=== PATIENT | female | born 1975 | race Caucasian/White ===

== ENCOUNTER 2023-09-13 09:25 | Emergency (ER) | payer OTHER, SELFPAY ==
[2023-09-13 09:33] VITALS: BP 165/105; PULSE 84; TEMP 36.9; O2SAT 100; BMI 26.6
--- NOTE | 2023-09-13 09:47 | US_ITS ---
The [address] [address] Patient Name: KAYLEE MENDOZA MRN: [id number] date: 1975 Sex: F Assigned Patient Location: ER Current Patient Location: ER Accession/Order Number: [id number] Exam Date: 09/13/2023 10:00 Report Date: 09/13/2023 10:33 At the request of: ANSON RODRIGUEZ Procedure: US right upper quadrant EXAM: US right upper quadrant HISTORY: Pain, epigastric COMPARISON: None. TECHNIQUE: Grayscale, color and Doppler FINDINGS: The liver is normal in size, contour and echotexture 16 cm in length. No focal mass. Hepatopedal flow identified in the main portal vein with velocity of 43 cm/s. The gallbladder is normal in size. The wall measures 1.4 mm, normal. The common bile duct measures 1.6 mm, normal. The right kidney measures 9.6 x 4.1 x 4.7 cm. Identified in the upper pole is a 6.6 mm echogenic focus, nonobstructing nephrolith. The visualized pancreas is normal, the pancreas is poorly seen US/US right upper quadrant IMPRESSION: No acute abnormality Electronically authenticated by: EVANS LEGGETT Date: 09/13/2023 10:33
--- NOTE | 2023-09-13 09:50 | ED.GENADUL1 ---
HPI HPI - General Adult General Chief complaint: Nausea/Vomiting/Diarrhea Stated complaint: ABDOMINAL PAIN/NAUSEA Time Seen by Provider: 09/13/23 09:31 Source: patient Mode of arrival: walk-in History of Present Illness HPI narrative: 48-year-old female presents to the emergency department for intermittent since nausea vomiting and pain since March. She complains of pain in the epigastric area. She has seen her doctor for this who told her to go to the emergency department to get an ultrasound done. No trauma or fever or hematemesis. The pain is moderate and intermittent. Related Data Home Medications ?Medication ?Instructions ?Recorded ?Confirmed bupropion HCl 150 mg 24 hr tablet, mg PO 09/13/23 extended release buspirone 10 mg tablet mg 09/13/23 buspirone 15 mg tablet mg 09/13/23 cetirizine 10 mg tablet mg 09/13/23 hydroxyzine pamoate 25 mg capsule mg 09/13/23 lisinopril 5 mg tablet mg 09/13/23 Previous Rx's ?Medication ?Instructions ?Recorded ondansetron 4 mg disintegrating 4 mg PO Q6H PRN nausea and 09/13/23 tablet vomiting #20 tabs Allergies Allergy/AdvReac Type Severity Reaction Status Date / Time No Known Drug Allergies Allergy Verified 09/13/23 09:36 Opioid HPI Opioid Management Most Recent Opioid Data: No Data to Display Review of Systems ROS Narrative A ten point review of systems is negative except as noted above. Exam Narrative Exam Narrative: Nurses note and vital signs reviewed and patient is not hypoxic. General: The patient appears in no apparent distress. Skin: Warm, dry, no pallor noted. There is no rash noted. Head: Normocephalic, atraumatic Eye: Normal conjunctiva, no drainage Ears, Nose, Mouth, and Throat: oral mucosa is moist. Nares patent. Cardiovascular: Regular Rate and Rhythm Respiratory: Patient is in no distress, no accessory muscle use, lungs are clear to auscultation, no wheezing, rales or rhonchi Back: non-tender GI: Soft and nondistended. She has tenderness in the epigastric area. No mass or distention. Musculoskeletal: The patient has no evidence of calf tenderness, no pitting edema, symmetrical pulses noted bilaterally Neurological: A&O, normal speech Psychiatric: Cooperative Constitutional Vital Signs, click to edit/add: Last Vital Signs Temp 98.4 F 09/13/23 09:33 Pulse 84 09/13/23 11:15 Resp 18 09/13/23 11:15 BP 142/103 H 09/13/23 11:15 Pulse Ox 100 09/13/23 11:15 O2 Del Method Room Air 09/13/23 09:33 Course Vital Signs Vital signs: Vital Signs Temperature 98.4 F 09/13/23 09:33 Pulse Rate 84 09/13/23 09:33 Respiratory Rate 18 09/13/23 09:33 Blood Pressure 165/105 H 09/13/23 09:33 Pulse Oximetry 100 09/13/23 09:33 Oxygen Delivery Method Room Air 09/13/23 09:33 Temperature 98.4 F 09/13/23 09:33 Pulse Rate 84 09/13/23 11:15 Respiratory Rate 18 09/13/23 11:15 Blood Pressure 142/103 H 09/13/23 11:15 Pulse Oximetry 100 09/13/23 11:15 Oxygen Delivery Method Room Air 09/13/23 09:33 Medical Decision Making MDM Narrative Medical decision making narrative: Her workup is negative. hCG level is 5, physiologic. Gallbladder ultrasound is negative. She has already spoken to her PCP about seeing a open source developer. She is already on Nexium and she is prescribed Zofran. Treatment diagnosis and follow-up were discussed with the patient. Lab Data Lab results reviewed: Yes I reviewed the patient's lab results Labs: Lab Results 09/13/23 Range/Units 09:37 WBC 8.4 (4.0-11.0) 10^3/uL RBC 5.11 (4.20-5.40) 10^6/uL Hgb 15.1 (12.0-16.0) g/dL Hct 44.5 (36.0-48.0) % MCV 87.1 (81.0-99.0) fL MCH 29.5 (26.7-34.0) pg MCHC 33.9 (29.9-35.2) g/dL RDW 12.3 (11.0-15.0) % Plt Count 412 (150-450) 10^3/uL MPV 9.0 L (9.5-13.5) fL Neut % (Auto) 60.1 (43.0-75.0) % Lymph % (Auto) 30.7 (20.5-60.0) % [place] % (Auto) 7.3 (1.7-12.0) % Eos % (Auto) 0.8 L (0.9-7.0) % Baso % (Auto) 0.6 (0.2-2.0) % Neut # (Auto) 5.0 (1.4-6.5) 10^3/uL Lymph # (Auto) 2.6 (1.2-3.8) 10^3/uL [place] # (Auto) 0.6 (0.3-0.8) 10^3/uL Eos # (Auto) 0.1 (0.0-0.7) 10^3/uL Baso # (Auto) 0.1 (0.0-0.1) 10^3/uL Abs Immat Gran (auto) 0.04 H (0.00-0.03) 10^3/uL Imm/Tot Granulo (auto) 0.5 (0.0-0.5) % Sodium 137 (136-145) mmol/L Potassium 3.7 (3.5-5.1) mmol/L Chloride 100 (98-107) mmol/L Carbon Dioxide 24.6 (21.0-32.0) mmol/L Anion Gap 16.1 BUN 14.0 (7.0-18.0) mg/dL Creatinine 1.13 H (0.55-1.02) mg/dL Est GFR ( Amer) >60 (>=60) Est GFR (Non-Af Amer) 52 L (>=60) BUN/Creatinine Ratio 12.4 Glucose 109 H (74-106) mg/dL Calcium 10.0 (8.5-10.1) mg/dL Total Bilirubin 0.6 (0.2-1.0) mg/dL Direct Bilirubin 0.1 (0.0-0.2) mg/dL AST 14 L (15-37) U/L ALT 16 (14-59) U/L Alkaline Phosphatase 107 (46-116) U/L Total Protein 8.9 H (6.4-8.2) g/dL Albumin 4.7 (3.4-5.0) g/dL Globulin 4.2 g/dL Albumin/Globulin Ratio 1.1 Amylase 67 (25-115) U/L Lipase 36.0 (16.0-77.0) U/L Serum HCG, Qual Positive A (NEGATIVE) HCG, Quant 5 mIU/mL Imaging Data Gallbladder ultrasound: Radiologist's impression: ITS Impressions Upper Quadrant Ultrasound 09/13/23 09:47 IMPRESSION: No acute abnormality Electronically authenticated by: EVANS LEGGETT Date: 09/13/2023 10:33 Discharge Plan Discharge Stand Alone Forms: Portal Instructions Chief Complaint: Nausea/Vomiting/Diarrhea Clinical Impression: Nausea and vomiting, Abdominal pain Patient Disposition: Home, Self-Care Time of Disposition Decision: 11:20 Condition: Good Mode of Transportation: Private Vehicle Prescriptions / Home Meds: New ondansetron 4 mg tablet,disintegrating 4 mg PO Q6H PRN (Reason: nausea and vomiting) Qty: 20 0RF No Action cetirizine 10 mg tablet buspirone 10 mg tablet lisinopril 5 mg tablet buspirone 15 mg tablet hydroxyzine pamoate 25 mg capsule bupropion HCl 150 mg tablet extended release 24 hr PO Print Language: French Instructions: Acute Nausea and Vomiting (ED), Abdominal Pain (ED) Referrals: Aleyda Rosales CUT PRESSMAN [Primary Care Provider] - 1 week
[2023-09-13 09:52] LABS: Basophils Absolute Auto 0.1 10^3/uL (0.0-0.1); Basophils Percent Auto 0.6 % (0.2-2.0); Eosinophils Absolute Auto 0.1 10^3/uL (0.0-0.7); Eosinophils Percent Auto 0.8 % (0.9-7.0); Hematocrit 44.5 % (36.0-48.0); Hemoglobin 15.1 g/dL (12.0-16.0); Immature Granulocytes Abs Auto 0.04 10^3/uL (0.00-0.03); Immature Granulocytes Pct Auto 0.5 % (0.0-0.5); Lymphocytes Absolute Auto 2.6 10^3/uL (1.2-3.8); Lymphocytes Percent Auto 30.7 % (20.5-60.0); Mean Corpuscular HGB Conc 33.9 g/dL (29.9-35.2); Mean Corpuscular Hemoglobin 29.5 pg (26.7-34.0); Mean Corpuscular Volume 87.1 fL (81.0-99.0); Monocytes Absolute Auto 0.6 10^3/uL (0.3-0.8); Monocytes Percent Auto 7.3 % (1.7-12.0); Neutrophils Percent Auto 60.1 % (43.0-75.0); Platelet Count 412 10^3/uL (150-450); Red Blood Count 5.11 10^6/uL (4.20-5.40); Red Cell Distribution Width 12.3 % (11.0-15.0); White Blood Count 8.4 10^3/uL (4.0-11.0)
[2023-09-13] MEDS: 0.9 % SODIUM CHLORIDE 1,000 ML 1000 ML IV (09:55)
[2023-09-13] MEDS: ONDANSETRON PF 4 MG/2 ML VIAL IV (09:55)
[2023-09-13 10:00] LABS: Amylase 67 U/L (25-115); Anion Gap 16.1; BUN Creatinine Ratio 12.4; Carbon Dioxide 24.6 mmol/L (21.0-32.0); Chloride 100 mmol/L (98-107); Estimated GFR (African America >60 (>=60); Estimated GFR (Non-African Ame 52 (>=60); Glucose 109 mg/dL (74-106); Potassium 3.7 mmol/L (3.5-5.1); Sodium 137 mmol/L (136-145)
[2023-09-13 10:01] LABS: Alanine Aminotransferase 16 U/L (14-59); Albumin Globulin Ratio 1.1; Albumin Level 4.7 g/dL (3.4-5.0); Alkaline Phosphatase 107 U/L (46-116); Aspartate Amino Transferase 14 U/L (15-37); Bilirubin Direct 0.1 mg/dL (0.0-0.2); Bilirubin Total 0.6 mg/dL (0.2-1.0); Globulin 4.2 g/dL; Total Protein 8.9 g/dL (6.4-8.2)
[2023-09-13 10:08] LABS: HCG Qualitative POSITIVE (NEGATIVE)
[2023-09-13 10:48] LABS: HCG Quantitative 5 mIU/mL
[2023-09-13 11:15] VITALS: BP 142/103; PULSE 84; O2SAT 100
== END 2023-09-13 11:29 | disposition home or self-care (01) ==
PROVIDERS: Emergency Provider Emergency Medicine; PCP Nurse Practitioner
DX: R11.2 Nausea with vomiting, unspecified (principal); R10.9 Unspecified abdominal pain
CPT/HCPCS: 36415; 76705; 80048; 80076; 82150; 83690; 84702; 84703; 85025; 96361; 96374; 99284

== ENCOUNTER 2024-11-13 09:24 | Emergency (ER) | payer OTHER, SELFPAY ==
--- OUTSIDE RECORDS SUMMARY | 2013-05-30 15:19 | XMS_ITS | Encounter Summary ---
Author Organization [facility] Address [address], [address] [place] [address] Care Team Providers Care Die Cast Supervisor Name Role Phone Bimalsandor Jason E Primary Care Provider [phone] Encounter Details Date Type Department Care Team (Late st Contact Info) Description 05/30/2013 2:19 PM EST Hospital Encounter [facility]V Pre-Admit Testing [address] [place], [place] [id number] Pierre Cardozo Jr., MD [address] [facility] [address] [place] [address] Social History Tobacco Use Types Packs/Day Years Used Date Smoking Tobacco: Former Cigarettes 1 1992 Comments:1/2 to 1 PPD Alcohol Use Standard Drinks/Week Comments No 0 (1 standard drink = 0.6 oz pur e alcohol) Interpersonal Safety Domain Source: IP Abuse Scr eening Answer Date Recorded Physical abuse Denies 11/21/2023 Verbal abuse Denies 11/21/2023 Emotional abuse Denies 11/21/2023 Financial abuse Denies 11/21/2023 Sexual abuse Denies 11/21/2023 Comments No Sex and Gender Information Value Date Recorded Sex Assigned at Not on file Legal Sex Female 9:16 PM EST Gender Identity Not on file Sexual Orientation Not on file documented as of this encounter Last Filed Vital Signs Vital Sign Reading Time Taken Comments Blood Pressure 134/89 05/30/2013 3:10 PM EST Pulse 110 05/30/2013 3:10 PM EST Temperature 36.7 C (98.1 F) 05/30/2013 3:10 PM EST Respiratory Rate 20 05/30/2013 3:10 PM EST Oxygen Saturation 99% 05/30/2013 3:10 PM EST Inhaled Oxygen Concentration - - Weight 60.3 kg (133 lb) 05/30/2013 3:10 PM EST Height 162.6 cm (5' 4 ) 05/30/2013 3:10 PM EST Body Mass Index 22.83 05/30/2013 3:10 PM EST documented in this encounter Progress Notes * Sergio Miller PA - 05/30/2013 3:10 PM EST Anesthesia Focused Assessment Obstructive Sleep Apnea: no If YES, machine used: no Type 1 DM: no T2DM: no Coronary Artery Disease: no Hypertension: no Active smoker: Yes 1/2 to 1 PPD for 20 years Drinks Alcohol: no Dentition: benign Defib / AICD / Pacemaker: no Renal Failure/dialysis: no Patient was evaluated in PAT & anesthesia guidelines were applied. NPO guidelines, medication instructions and scheduled arrival time were reviewed with patient. Hx of anesthesia complications: Nausea after LEEP, no trouble in more recent surgeries. Family hx of anesthesia complications: no Anesthesia contacted: no Medical or cardiac clearance ordered: no SERGIO MILLER PA-C 05/30/2013 3:10 PM documented in this encounter Plan of Treatment Not on file documented as of this encounter Procedures Procedure Name Priority Date/Time Associated Diagnosis Comments UA W/REFLEX CULTURE Routine 05/30/2013 5 :35 PM EST CBC WITH AUTO DIFFERENTIAL Routine 05/30/2013 3:35 PM EST APTT Routine 05/30/2013 3:35 PM EST PROTIME-INR Routine 05/30/2013 3:35 PM EST HCG, SERUM, QUALITATIVE Routine 05/30/2013 3:35 PM EST COMPREHENSIVE METABOLIC PANEL Routine 05/30/2013 3:35 PM EST XR CHEST (2 VW) Routine 05/30/2013 3:26 PM EST documented in this encounter Results * UA W/REFLEX CULTURE (05/30/2013 5:35 PM EST) Color, UA YELLOW YEL 05/30/2013 6:15 PM EST [facility] Turbidity UA CLEAR CLEAR 05/30/2013 6:15 PM EST [facility] Glucose, Ur NEGATIVE NEG 05/30/2013 6:15 PM EST [facility] Bilirubin Urine NEGATIVE NEG 4 6:15 PM EST [facility] Ketones, Urine NEGATIVE NEG 05/30/2013 6:15 PM EST [facility] Specific [place], UA 1.008 1.005 - 1.030 05/30/2013 6:15 PM EST [facility] Urine Hgb NEGATIVE NEG 05/30/2013 6:15 PM EST [facility] pH, UA 7.0 5.0 - 8.0 05/30/2013 6:15 PM EST [facility] Protein, UA NEGATIVE NEG 05/30/2013 6:15 PM EST [facility] Urobilinogen, Urine Normal NORM 05/30/2013 6:15 PM EST [facility] Nitrite, Urine NEGATIVE NEG 05/30/2013 6:15 PM EST [facility] Leukocyte Esterase, Urine NEGATIVE NEG 05/30/2013 6:15 PM EST [facility] Urinalysis Comments Microscopic exam not performed based on chemical results unless requested in 05/30/2013 6:15 PM EST [facility] Comment: original order. Utilizing a urinalysis as the only screening method to exclude a potential uropathogen can be unreliable in many patient populations. Rapid screening tests are less sensitive than culture and if UTI is a clinical possibility, culture should be considered despite a negative urinalysis. [facility] [address] [place] [id number] 05/30/2013 5:35 PM EST 05/30/2013 5:35 PM EST Pierre Cardozo Jr., MD URINE ORDERABLES Kyra inman Result [facility] [address] [place] [address], [facility] [phone] [facility] * HCG Qualitative, Serum (05/30/2013 3:35 PM EST) Pathologist [facility] Preg, Serum NEGATIVE NEG 05/30/2013 4:36 PM EST [facility] Comment: Specimens with hCG levels near the threshold of the test (25 mIU/mL) may give a negative or indeterminate result. In such cases, another test should be performed with a new specimen in 48-72 hours. If early is suspected clinically in this setting, correlation with quantitative serum b-hCG level is suggested. [place] [id number] 05/30/2013 3:35 PM EST 05/30/2013 3:43 PM EST Pierre Cardozo Jr., MD CHEMISTRY ORDERABLES Final Result Performing Organization Address [facility] Co de Phone Number [address] [phone] [facility] * Protime-INR (05/30/2013 3:35 PM EST) [facility] Protime 10.3 9.4 - 12.6 sec 05/30/2013 3:57 PM EST [facility] INR 0.9 05/30/2013 3:57 PM EST [facility] Comment: Therapeutic Range: Moderate Anticoagulant Intensity: INR = 2.0-3.0 High Anticoagulant Intensity: INR = 2.5-3.5 [place] [id number] BLOOD SPECIMEN / Unknown 05/30/2013 3:35 PM EST 05/30/2013 3:43 PM EST Pierre Cardozo Jr., MD HEMATOLOGY ORDERABLES Final Result Performing Organization Address [facility]/ZIP Co de Phone Number [address] [phone] [facility] * APTT (05/30/2013 3:35 PM EST) [facility] APTT 29.0 21.3 - 31.3 sec 05/30/2013 3:57 PM EST [facility] Comment:[facility] [address] [place] [address] BLOOD SPECIMEN / Unknown 05/30/2013 3:35 PM EST 05/30/2013 3:43 PM EST Pierre Cardozo Jr., MD HEMATOLOGY ORDERABLES Final Result [facility] [address] [place] [address], [facility] [phone] [facility] * (ABNORMAL) Comprehensive metabolic panel (05/30/2013 3:35 PM EST) Pathologist [facility] Glucose 79 74 - 106 mg/dL 05/30/2013 4:23 PM EST [facility] BUN 12 6 - 20 mg/dL 05/30/2013 4:23 PM EST [facility] Creatinine 0.70 0.4 - 1.0 mg/dL 05/30/2013 4:23 PM EST [facility] BUN/Creatinine Ratio NOT REPORTED 9 - 20 [facility] Calcium 9.7 8.6 - 10.4 mg/dL 05/30/2013 4:23 PM EST [facility] Sodium 139 136 - 145 mmol/L 05/30/2013 4:23 PM EST [facility] Potassium 4.2 3.5 - 5.1 mmol/L 05/30/2013 4:23 PM EST [facility] Chloride 103 98 - 110 mmol/L 05/30/2013 4:23 PM EST [facility] CO2 26 20 - 31 mmol/L 05/30/2013 4:23 PM EST [facility] Anion Gap 14 8 - 16 mmol/L 05/30/2013 4:23 PM EST [facility] Alkaline Phosphatase 63 25 - 100 U/L 05/30/2013 4:23 PM EST [facility] ALT 9 4 - 40 U/L 05/30/2013 4:23 PM EST [facility] AST 20 8 - 36 U/L 05/30/2013 4:23 PM EST [facility] Total Bilirubin 0.24(L) 0.3 - 1.2 mg/dL 05/30/2013 4:23 PM EST [facility] Total Protein 8.0 6.4 - 8.3 g/dL 05/30/2013 4:23 PM EST [facility] Albumin 5.1(H) 3.4 - 4.8 g/dL 05/30/2013 4:23 PM EST [facility] Albumin/Globulin Ratio 1.8 1.0 - 2.7 05/30/2013 4:23 PM EST PN LAB GFR Non- >60 >60 mL/min 05/30/2013 4:23 PM EST PN LAB GFR >60 >60 mL/min 05/30/2013 4:23 PM EST [facility] GFR Comment 05/30/2013 4:23 PM EST [facility] Comment: Average GFR for 30-39 years old: 107 mL/min/1.73sq m Chronic Kidney Disease: <60 mL/min/1.73sq m Kidney failure: <15 mL/min/1.73sq m GFR is a calculated value that has proven clinically to be a more effective measure of kidney function when reported with serum creatinine. [facility] [address] [place], [place] [id number] GFR Staging NOT REPORTED [facility] BLOOD SPECIMEN / Unknown 05/30/2013 3:35 PM EST 05/30/2013 3:43 PM EST Pierre Cardozo Jr., MD CHEMISTRY ORDERABLES Final Result Performing Organization Address City/State/[facility] Co de Phone Number [facility] [address] [place] [address], [facility] [phone] [facility] * (ABNORMAL) CBC Auto Differential (05/30/2013 3:35 PM EST) Pathologist [facility] WBC 8.1 3.5 - 11.0 k/uL 05/30/2013 3:47 PM EST [facility] RBC 4.33 4.0 - 5.2 m/uL 05/30/2013 3:47 PM EST [facility] Hemoglobin 13.8 12.0 - 16.0 g/dL 05/30/2013 3:47 PM EST [facility] Hematocrit 40.8 36 - 46 % 05/30/2013 3:47 PM EST [facility] MCV 94.3 80 - 100 fL 05/30/2013 3:47 PM EST [facility] MCH 31.7 26 - 34 pg 05/30/2013 3:47 PM EST [facility] MCHC 33.7 31 - 37 g/dL 05/30/2013 3:47 PM EST [facility] RDW 13.2 12.5 - 15.4 % 05/30/2013 3:47 PM EST [facility] Platelets 310 140 - 450 k/uL 05/30/2013 3:47 PM EST [facility] MPV 7.5 6.0 - 12.0 fL 05/30/2013 3:47 PM EST [facility] Differential Type NOT REPORTED [facility] Seg Neutrophils 70(H) 36 - 66 % 05/30/2013 3:47 PM EST [facility] Lymphocytes 25 24 - 44 % 05/30/2013 3:47 PM EST [facility] Monocytes % 5 2 - 11 % 05/30/2013 3:47 PM EST [facility] Eosinophils % 0(L) 1 - 4 % 05/30/2013 3:47 PM EST [facility] Basophils % 0 0 - 2 % 05/30/2013 3:47 PM EST [facility] Neutrophils Absolute 5.60 1.8 - 7.7 k/uL 05/30/2013 3:47 PM EST [facility] Lymphocytes Absolute 2.10 1.0 - 4.8 k/uL 05/30/2013 3:47 PM EST [facility] Monocytes Absolute 0.40 0.1 - 1.2 k/uL 05/30/2013 3:47 PM EST [facility] Eosinophils Absolute 0.00 0.0 - 0.4 k/uL 05/30/2013 3:47 PM EST [facility] Basophils Absolute 0.00 0.0 - 0.2 k/uL 05/30/2013 3:47 PM EST [facility] Comment:[facility] [address] [employer], [place] [phone] WBC Morphology NOT REPORTED [facility] RBC Morphology NOT REPORTED [facility] Platelet Estimate NOT REPORTED [facility] 05/30/2013 3:35 PM EST 05/30/2013 3:43 PM EST Pierre Cardozo Jr., MD HEMATOLOGY ORDERABLES Final Result [facility] [address] [place] [address], [facility] [phone] [facility] * XR Chest Standard TWO VW (05/30/2013 3:26 PM EST) Anatomical Region Laterality Modality Chest Radiographic Meagan ging 05/30/2013 3:26 PM EST Narrative 05/30/2013 3:39 PM EST FINAL Procedure: PAT May 30 2013 3:26PM [id number] CHEST PA AND LATERAL Reason for Exam: ^preop lumbar fusion FULL RESULT: STUDY: PA and lateral images of the chest, 05/30/13. INDICATION: Preop lumbar fusion. COMPARISON: None. FINDINGS: Lungs are clear. Unremarkable cardiomediastinal silhouette. IMPRESSION: 1. No acute cardiopulmonary process. Report Transcribed by: [facility] on May 30 2013 3:39P Read by: REMIGIO MADRIGAL M.D. [id number] on May 30 2013 3:39P Electronically Signed by: DR. REMIGIO MADRIGAL M.D. on: May 30 2013 3:39P Procedure Note Remigio Madrigal MD - 05/30/2013 FINAL Procedure: PAT May 30 2013 3:26PM [id number] CHEST PA AND LATERAL Reason for Exam: ^preop lumbar fusion FULL RESULT: STUDY: PA and lateral images of the chest, 05/30/13. INDICATION: Preop lumbar fusion. COMPARISON: None. FINDINGS: Lungs are clear. Unremarkable cardiomediastinal silhouette. IMPRESSION: 1. No acute cardiopulmonary process. Report Transcribed by: [facility] on May 30 2013 3:39P Read by: REMIGIO MADRIGAL M.D. [id number] on May 30 2013 3:39P Electronically Signed by: DR. REMIGIO MADRIGAL M.D. on: May 30 2013 3:39P Pierre Cardozo Jr., MD IMG DIAGNOSTIC IMAGIN G ORDERABLES Edited Result - Final documented in this encounter Visit Diagnoses Not on filedocumented in this encounter Care Teams Die Cast Supervisor Relationship Specialty Start Date End Date Jason Galeana DO PCP - General 05/20/13 10/21/23 documented as of this encounter
--- OUTSIDE RECORDS SUMMARY | 2013-09-17 12:15 | XMS_ITS | Encounter Summary ---
Author Organization [facility] Address [address], [address] [place] [address] Care Team Providers Care Room Service Food Server Name Role Phone Jason Galeana DO Primary Care Provider [phone] Encounter Details Date Type Department Care Team (Late st Contact Info) Description 09/17/2013 12:15 PM EDT Hospital Encounter [facility] Physical Therapy [address] [place] [address] Pierre Cardozo Jr., MD [address] [facility] [address] [place] [id number] Monica Olsen, PT Social History Tobacco Use Types Packs/Day Years Used Date Smoking Tobacco: Former Cigarettes 1992 Comments:1/2 to 1 PPD Alcohol Use [...] on file documented as of this encounter Plan of Treatment Not on file documented as of this encounter Visit Diagnoses Not on filedocumented in this encounter Care Teams Room Service Food Server Relationship Specialty Start Date End Date Jason Galeana DO PCP - General 05/20/13 10/21/23 documented as of this encounter
--- OUTSIDE RECORDS SUMMARY | 2013-11-03 12:00 | XMS_ITS | Encounter Summary ---
Author Organization [facility] Address [address], [address] [place] [address] Care Team Providers Care Crisis Intervention Counselor Name Role Phone Jason Galeana DO Primary Care Provider [phone] Encounter Details Date Type Department Care Team (Late st Contact Info) Description 11/03/2013 12:00 PM EDT Hospital Encounter [facility] Physical Therapy [address] [place] [address] Pierre Cardozo Jr., MD [address] [facility] [address] [place] [address] Monica Olsen, PT Social History Tobacco Use [...] on filedocumented in this encounter Care Teams Crisis Intervention Counselor Relationship Specialty Start Date End Date Jason Galeana DO PCP - General 05/20/13 10/21/23 documented as of this encounter
--- OUTSIDE RECORDS SUMMARY | 2013-12-05 13:00 | XMS_ITS | Encounter Summary ---
Author Organization [facility] Address [address], [address] [place] [address] Care Team Providers Care Investigator Internal Revenue Name Role Phone Jason Galeana DO Primary Care Provider [phone] Encounter Details Date Type Department Care Team (Late st Contact Info) Description 12/05/2013 1:00 PM EDT Hospital Encounter [facility] Physical Therapy [address] [place] [address] Pierre Cardozo Jr., MD [address] [facility] [address] [place] [address] Monica Olsen, PT Social History Tobacco Use [...] on filedocumented in this encounter Care Teams Investigator Internal Revenue Relationship Specialty Start Date End Date Jason Galeana DO PCP - General 05/20/13 10/21/23 documented as of this encounter
--- OUTSIDE RECORDS SUMMARY | 2013-12-29 13:00 | XMS_ITS | Encounter Summary ---
Author Organization [facility] Address [address], [address] [place] [address] Care Team Providers Care Epic Cupid Analyst Name Role Phone Jason Galeana DO Primary Care Provider [phone] Encounter Details Date Type Department Care Team (Late st Contact Info) Description 12/29/2013 1:00 PM EDT Hospital Encounter [facility] Physical Therapy [address] [place] [address] Pierre Cardozo Jr., MD [address] [facility] [address] [place] [address] Chris Ramsay, PT Social History Tobacco Use Types Packs/Day [...] on filedocumented in this encounter Care Teams Epic Cupid Analyst Relationship Specialty Start Date End Date Jason Galeana DO PCP - General 05/20/13 10/21/23 documented as of this encounter
--- OUTSIDE RECORDS SUMMARY | 2024-10-31 05:30 | XMS_ITS ---
Author Organization [facility] vices Address [address] [place], [place] [id number] Care Team Providers Care Smocker Name Role Phone Aleyda Rosales Primary Care Provider Marvel Ferrer Unavailable [phone] REASON FOR VISIT 3m htn, migraines Social History Sex Assigned At : Social History Observation Description Sex Assigned At Female Encounters Encounter Location Date Provider Diagnosis [address] [id number] 10/31 Aleyda Rosales Plan Of Treatment No Information Progress Notes * Andree OROZCO LDOB:1975 (49 yo F)Acc No.[id number]:10/31/2024 Medical Note Patient: Andree PORTILLO Provider: Hazel Rosales :1975 A ge:49 Y S ex:Female Date:10/31/2024 [facility] [address] [id number] Subjective: * Chief Complaints: * 1 . 3m htn, migraines. * Medical History: Objective: * Vitals: Assessment: Plan: * Treatment: * Billing Information: * Visit Code: * Procedure Codes: * Electronic signature of CLEO Burch on 11/13/2024 at 09:31 AM EDT Sign off status: Pending * Provider: Hazel Rosales Date: 10/31/2024 Generated for Edwige nava/Nissa/eTransmitting on: 11/13/2024 09:31 AM EDT
[2024-11-13] VITALS (18 sets, daily range): BP systolic 120–134; BP diastolic 81–106; PULSE 74–85; TEMP 37.1; O2SAT 99–100; BMI 23.3
--- OUTSIDE RECORDS SUMMARY | 2024-11-13 09:32 | XMS_ITS | Clinical Summary ---
Author Organization [facility] Address [id number] [place] [address] Care Team Providers Care Poultry Hatchery Laborer Name Role Phone Aleyda Rosales ASSISTANT AT SURGERY-FILL MANAGER Primary Care Provider [phone] Allergies Active Allergy Reactions Criticality Noted Date Comments Progesterone 10/02/2024 Medications cetirizine (ZyrTEC) 10 mg tablet Take 1 tablet (10 mg total) by mouth in the morning. Active busPIRone (BUSPAR) 10 mg tablet Take 2 tablets (20 mg total) by mouth every 12 (twelve) hours. Active hydrOXYzine (VISTARIL) 25 mg capsule Take 2 capsules (50 mg total) by mouth in the morning and at bedtime. Active omeprazole (PriLOSEC OTC) 20 mg EC tablet Take 1 tablet (20 mg total) by mouth every morning before breakfast. Active topiramate (TOPAMAX) 100 mg tablet Take 1 tablet (100 mg total) by mouth in the morning and 1 tablet (100 mg total) before bedtime. Active DULoxetine (CYMBALTA) 30 mg capsule Take 1 capsule (30 mg total) by mouth in the morning. 02/01/2024 Active promethazine (PHENERGAN) 12.5 mg tabletIndicatio ns:Pelvic pain,Nausea Take 1 tablet (12.5 mg total) by mouth every 6 (six) hours as needed for nausea or vomiting. 30 tablet 05/22/2024 Active metoprolol succinate XL (TOPROL XL) 25 mg 24 hr tablet TAKE 1 TABLET (25 MG TOTAL) BY MOUTH ONCE DAILY AT BEDTIME. 90 tablet 1 07/30/2024 Active Active Problems Problem Noted Date Diagnosed Date Menorrhagia with irregular cycle 05/30/2024 Dysmenorrhea 05/30/2024 Status post endometrial ablation 05/30/2024 Syncope and collapse 07/06/2023 Tachycardia 07/06/2023 Palpitations 07/06/2023 Essential hypertension, benign 07/06/2023 Encounters Date Type Department Care Team Description 10/02/2024 1:43 PM EDT - 10/02/2024 3:54 PM EDT Emergency [facility] - Emergency [address] [place] [address] Hossein Marcelo DO Generalized abdominal pain (Primary Dx) Discharge Disposition: Home 10/02/2024 Travel from Last 3 Months Family History Medical History Relation Name Comments Diabetes Father Alcohol abuse Mother Diverticulitis Mother Migraines Mother Breast cancer Neg Hx Colon cancer Neg Hx Ovarian cancer Neg Hx Relation Name Status Comments Father Alive Mother Alive Social History Tobacco Use Types Packs/Day Years Used Date Smoking Tobacco: Former Cigarettes 1 4.6 2 021 - 1993 Smokeless Tobacco: Never Tobacco Cessation:Counseling Given: Not Answered Alcohol Use Standard Drinks/Week Comments No 0 (1 standard drink = 0.6 oz pur e alcohol) AUDIT-C Answer Date Recorded Frequency of Alcohol Consumption Never 12/10/2019 Average Number of Drinks Not on file 020 Frequency of Binge Drinking Not on file 11/21 PHQ-2 Answer Date Recorded Total Score 2 04/04/2024 Childcare Answer Date Recorded Childcare Unknown 10/01/2018 Employment Answer Date Recorded Employment Unknown 10/01/2018 Hunger Screening Answer Date Recorded Within the past 12 months we worried whether our food would run out before we got money to buy more. Never True 10/02/2024 Within the past 12 months th e food we bought just didn't last and we didn't have money to get more. Never True 10/02/2024 Purpose - Life Answer Date Recorded Purpose and direction in life Unknown Comments No Sex and Gender Information Value Date Recorded Sex Assigned at Female 01/11/2021 7:27 PM EDT Legal Sex Female 8:03 PM EDT Gender Identity Female 01/11/2021 7:27 PM EDT Sexual Orientation Straight 06/13/2022 3: 56 PM EST Last Filed Vital Signs Vital Sign Reading Time Taken Comments Blood Pressure 149/96 10/02/2024 3:45 PM EDT Pulse 66 10/02/2024 1:48 PM EDT Temperature 37 C (98.6 F) 10/02/2024 1:48 PM EDT Respiratory Rate 20 10/02/2024 1:48 PM EDT Oxygen Saturation 100% 10/02/2024 3:45 PM EDT Inhaled Oxygen Concentration - - Weight 68 kg (150 lb) 10/02/2024 1:48 PM EDT Height 165.1 cm (5' 5 ) 10/02/2024 1:48 PM EDT Body Mass Index 24.96 10/02/2024 1:48 PM EDT Plan of Treatment Health Maintenance Due Date Last Done Comments Influenza Vaccine 12/22/2024 02/08/2024, , 12/22/2010 Depression Screening 04/04/2025 04/04/2024 Adult BMI Screening 10/02/2025 10/02/2024 Tobacco Screening 10/02/2025 10/02/2024 DTaP,Tdap and Td Vaccines (2 - Td or Tdap) 01/29/2033 01/29/2023, 10/03/2002 Pap Smear Discontinued 04/04/2024, 03/23, 04/05/2020, Additional history exists Medical Devices Not on file Procedures Procedure Name Priority Date/Time Associated Diagnosis Comments CT ABDOMEN AND PELVIS W CONT STAT 10/02/2024 2:50 PM EDT LIPASE STAT 10/02/2024 2:06 PM EDT COMPREHENSIVE METABOLIC PANEL STAT 10/02/2024 2:06 PM EDT SERUM STAT 10/02/2024 2:06 PM EDT CBC WITH AUTO DIFFERENTIAL STAT 10/02/2024 2:06 PM EDT EXTRA TUBES BLUE TOP Routine 10/02/2024 2:05 PM EDT EXTRA TUBES Routine 10/02/2024 2:05 PM EDT HIGH RISK HPV W/SERAFIN Routine 04/04/2024 4:36 AM EST Cervical smear, as part of routine gynecological examination from Last 3 Months or Most Recently Relevant to Health Maintenance Results * CT abdomen and pelvis with contrast (10/02/2024 2:50 PM EDT) Anatomical Region Laterality Modality Body, Abdomen, Body Covera N/A Compu ruthie Tomography 10/02/2024 2:51 PM EDT Narrative 10/02/2024 2:54 PM EDT ABDOMEN AND PELVIS CT WITH CONTRAST HISTORY: Generalized abdominal pain COMPARISON: CT 01/22/2024 TECHNIQUE: CT abdomen and pelvis was performed. Axial images were obtained following the uneventful administration of 100 cc Omnipaque 300 nonionic intravenous contrast. Coronal and sagittal reformatted images were obtained and reviewed. Automated exposure control was utilized. FINDINGS: Liver is unremarkable. Gallbladder is nondilated. There is no intra or extrahepatic biliary ductal dilatation. The spleen, pancreas, and adrenals unremarkable. Bilateral kidneys have symmetrically. No hydronephrosis or hydroureter. 2 to 3 mm right upper renal pole calculus, no hydronephrosis. A few too small to characterize hypodensities within the right midpole kidney. The small bowel is nondilated. Air and stool are seen distally in a nonobstructive bowel gas pattern. There is no intra-abdominal free air or pneumatosis. Appendix is visualized and unremarkable. No definite enlarged abdominal lymph nodes. No abdominal aortic aneurysm. Lung bases are clear. Fusion hardware at L5-S1. No acute osseous abnormality. IMPRESSION: * No acute abnormality of the abdomen or pelvis. * Redemonstration of a 2 mm right upper pole renal calculus, no hydronephrosis. Stable from prior exam. All CT scans at this facility use dose modulation, iterative reconstruction, and/or weight based dosing when appropriate to reduce radiation dose to as low as reasonably achievable. Finalized by Phil Martínez on 10/02/2024 2:54 PM Procedure Note Phil Martínez MD - 10/02/[address] WITH CONTRAST HISTORY: Generalized abdominal pain COMPARISON: CT 01/22/2024 TECHNIQUE: CT abdomen and pelvis was performed. Axial images wereobtained following the uneventful administration of 100 cc Omnipaque 300nonionic intravenous contrast. Coronal and sagittal reformatted imageswere obtained and reviewed. Automated exposure control was utilized. FINDINGS: Liver is unremarkable. Gallbladder is nondilated. There is no intra orextrahepatic biliary ductal dilatation. The spleen, pancreas, and adrenals unremarkable. Bilateral kidneys have symmetrically. No hydronephrosis or hydroureter. 2to 3 mm right upper renal pole calculus, no hydronephrosis. A few toosmall to characterize hypodensities within the right midpole kidney. The small bowel is nondilated. Air and stool are seen distally in anonobstructive bowel gas pattern. There is no intra-abdominal free air orpneumatosis. Appendix is visualized and unremarkable. No definite enlarged abdominal lymph nodes. No abdominal aortic aneurysm. Lung bases are clear. Fusion hardware at L5-S1. No acute osseous abnormality. IMPRESSION: * No acute abnormality of the abdomen or pelvis. * Redemonstration of a 2 mm right upper pole renal calculus, nohydronephrosis. Stable from prior exam. All CT scans at this facility use dose modulation, iterativereconstruction, and/or weight based dosing when appropriate to reduceradiation dose to as low as reasonably achievable. Finalized by Phil Martínez on 10/02/2024 2:54 PM Hossein Marcelo DO [facility] CT ORDERABLES Final Resul t * (ABNORMAL) CBC auto differential (10/02/2024 2:06 PM EDT) WBC 5.2 4 - 11 x10E9/L 10/02/2024 2:14 PM EDT [facility] RBC Count 4.62 3.8 - 5.2 X10E12/L 10/02/2024 2:14 PM EDT [facility] Hemoglobin 14.3 11.7 - 15.5 g/dL 10/02/2024 2:14 PM EDT [facility] Hematocrit 41.8 35 - 47 % 10/02/2024 2:14 PM EDT [facility] MCV 91 80 - 100 fL 10/02/2024 2:14 PM EDT [facility] MCH 30.9 27 - 34 pg 10/02/2024 2:14 PM EDT [facility] MCHC 34.1 32 - 36 g/dL 10/02/2024 2:14 PM EDT [facility] RDW 13.4 11.5 - 15 % 10/02/2024 2:14 PM EDT [facility] Platelet Count 362 150 - 450 X10E9/L 10/02/2024 2:14 PM EDT [facility] MPV 6.8(L) 7 - 12 fL 10/02/2024 2:14 PM EDT [facility] Neutrophils % 56.2 % 10/02/2024 2:14 PM EDT [facility] Lymphocytes % 36.3 % 10/02/2024 2:14 PM EDT [facility] Monocytes % 5.9 % 10/02/2024 2:14 PM EDT [facility] Eosinophils % 1.0 % 10/02/2024 2:14 PM EDT [facility] Basophils % 0.6 % 10/02/2024 2:14 PM EDT [facility] Neutrophils Absolute (A) 2.9 1.5 - 6.6 10*3/uL 10/02/2024 2:14 PM EDT [facility] Lymphocytes Absolute 1.9 1.0 - 3.5 10*3/uL 10/02/2024 2:14 PM EDT [facility] Monocytes Absolute 0.3 0.0 - 0.9 10*3/uL 10/02/2024 2:14 PM EDT [facility] Eosinophils Absolute 0.1 0.0 - 0.4 10*3/uL 10/02/2024 2:14 PM EDT [facility] Basophils Absolute 0.0 0.0 - 0.2 10*3/uL 10/02/2024 2:14 PM EDT [facility] Differential Type AUTOMATED DIFFERENTIAL 10/02/2024 2:14 PM EDT [facility] Blood Venous blood / Unknown 10/02/2024 2:06 PM EDT 10/02/2024 2:07 PM EDT us Hossein Davian DO LAB BLOOD ORDERABLES Final Re sult Performing Organization Address City/[facility] Hospital/ZIP Co de Phone Number [address] [place] [address], [place] * Serum (10/02/2024 2:06 PM EDT) SERUM Negative Negative 10/02/2024 2:41 PM EDT [facility] Blood Venous blood / Unknown 10/02/2024 2:06 PM EDT 10/02/2024 2:08 PM EDT us Hossein Davian DO LAB BLOOD ORDERABLES Final Re sult Performing Organization Address [facility] Co de Phone Number [address] [place] [address], [place] * Lipase (10/02/2024 2:06 PM EDT) LIPASE 35 17 - 40 U/L 10/02/2024 2:29 PM EDT [facility] Blood Venous blood / Unknown 10/02/2024 2:06 PM EDT 10/02/2024 2:08 PM EDT us Hossein Davian DO LAB BLOOD ORDERABLES Final Re sult Performing Organization Address [facility] Co de Phone Number [address] [place] [address], [place] * (ABNORMAL) Comprehensive metabolic panel (10/02/2024 2:06 PM EDT) SODIUM 138 134 - 146 mmol/L 10/02/2024 2:32 PM EDT [facility] POTASSIUM 3.7 3.5 - 5.0 mmol/L 10/02/2024 2:32 PM EDT [facility] CHLORIDE 111(H) 98 - 109 mmol/L 10/02/2024 2:32 PM EDT [facility] CARBON DIOXIDE 20(L) 22 - 32 mmol/L 10/02/2024 2:32 PM EDT [facility] ANION GAP 7 5 - 15 mmol/L 10/02/2024 2:32 PM EDT [facility] BLOOD UREA NITROGEN 15 5 - 23 mg/dL 10/02/2024 2:32 PM EDT [facility] CREATININE 1.05(H) 0.40 - 1.00 mg/dL 10/02/2024 2:32 PM EDT [facility] Comment:METHOD TRACEABLE TO IDMS STANDARD GLUCOSE 96 65 - 99 mg/dL 10/02/2024 2:32 PM EDT [facility] CALCIUM 9.3 8.5 - 10.5 mg/dL 10/02/2024 2:32 PM EDT [facility] TOTAL PROTEIN 7.7 6.0 - 8.0 g/dL 10/02/2024 2:32 PM EDT [facility] ALBUMIN 4.6 3.2 - 5.3 g/dL 10/02/2024 2:32 PM EDT [facility] ALKALINE PHOSPHATASE 82 39 - 130 U/L 10/02/2024 2:32 PM EDT [facility] AST 12 <=41 U/L 10/02/2024 2:32 PM EDT [facility] ALT 11 <=31 U/L 10/02/2024 2:32 PM EDT [facility] BILIRUBIN,TOTAL 0.6 0.3 - 1.2 mg/dL 10/02/2024 2:32 PM EDT [facility] EGFR Non-Race Dependent 66 >=60 ml/min/1.7 3sq.m 10/02/2024 2:32 PM EDT [facility] Comment: eGFR not reported due to non-numeric value for Creatinine. Reported eGFR is based on the CKD-EPI 2020 equation that does not use a race coefficient. Blood Venous blood / Unknown 10/02/2024 2:06 PM EDT 10/02/2024 2:08 PM EDT us Hossein Davian DO LAB BLOOD ORDERABLES Final Re sult Performing Organization Address City/[facility] Hospital/ZIP Co de Phone Number [address] [place] [address], [place] * Light Blue Top (10/02/2024 2:05 PM EDT) Extra Tube Auto Resulted 10/02/2024 4:01 PM EDT [facility] Blood Venous blood / Unknown 10/02/2024 2:05 PM EDT 10/02/2024 2:09 PM EDT us Hossein Davian DO LAB BLOOD ORDERABLES Final Re sult [address] [place] [address], [place] * High risk HPV w/serafin (04/04/2024 4:36 AM EST) Hpv specimen type ThinPrep 04/07/2024 4:37 AM EST [facility] Hpv 16 Negative Negative^N egative 04/07/2024 12:53 PM EST [facility] Hpv 18 Negative Negative^N egative 04/07/2024 12:53 PM EST [facility] Other high risk hpv Negative Negative^N egative 04/07/2024 12:53 PM EST [facility] Comment: HPV types 31,33,35,39,45,52,56,58,59,66 and 68 DNA were undetectable. THINP 04/04/2024 4:36 AM EST 04/04/2024 4:37 AM EST us Andree Gail Au ASSISTANT AT SURGERY-PLASTIC MOULD MAKER LAB BLOOD ORDERABLES Fin al Result [facility] [address] [facility] [place] [address] [facility] [address] [place] [address] from Last 3 Months or Most Recently Relevant to Health Maintenance Insurance [facility] Advance Directives * Full Code (Latest Code Status on File) Date Activated Date Inactivated Comments 06/20/2024 6:02 AM 06/20/2024 6:03 PM Care Teams Poultry Hatchery Laborer Relationship Specialty Start Date End Date Aleyda Rosales APRN-FNP [address] [place] [address] PCP - General Family Medicine 05/28/24
--- OUTSIDE RECORDS SUMMARY | 2024-11-13 09:32 | XMS_ITS | Encounter Summary ---
Author Organization [facility] Address [address] [place] [address] Care Team Providers Care Plastic Boat Patcher Name Role Phone Unallocated, Noms Provider Primary Care Provi alexsander Aleyda Rosales NP Unavailable Yessenia Basurto MD Unavailable Rain Richardson DO Unavailable Encounter Details Date Type Department Care Team (Late st Contact Info) Description 07/24/2024 External Result Encounter JENNIFER PEREZ [address] [place] [phone] Rain Richardson DO Social History Tobacco Use Types Packs/Day Years Used Date Smoking Tobacco: Former Cigarettes 1 15 0 08/21/2005 - 01/30/2021 Smokeless Tobacco: Never Alcohol Use Standard Drinks/Week Comments Not Currently 0 (1 standard drink = 0.6 oz pure alcohol) caffeine intake: 2-3 cups per day Comments Unknown Sex and Gender Information Value Date Recorded Sex Assigned at Female 09/27/2022 8:57 AM EDT Legal Sex Female 11:52 PM EDT Gender Identity Female 09/27/2022 8:57 AM EDT Sexual Orientation Not on file documented as of this encounter Plan of Treatment Not on file documented as of this encounter Procedures Procedure Name Priority Date/Time Associated Diagnosis Comments MR BRAIN W AND WO CONTRAST (ROUTINE) 07/24/2024 12:53 PM EDT documented in this encounter Results * MR brain w and wo contrast routine (07/24/2024 12:53 PM EDT) Anatomical Region Laterality Modality Brain Magnetic Resonan ce 07/24/2024 12:5 3 PM EDT Narrative 07/24/2024 12:51 PM EDT THIS EXAM WAS PERFORMED AT [facility] brain: HISTORY: Persistent headaches. Abnormal brain MRI. Multisequence multiplanar imaging of the brain was obtained and compared to remote exam dated January 04, 2016. Intravenous contrast was administered. There is no cortical signal characteristic abnormalities. Myelination pattern is normal. Ventricles normal in caliber. The diffusion-weighted images and ADC maps show no focus of diffusion restriction or acute intracranial ischemia. No cisternal or sulcal effacement. Cerebellar tonsils are normal position with symmetric cerebellar hemispheres. Orbits unremarkable. The pituitary infundibulum is midline. Punctate focus of enhancement right frontal lobe most likely represents a very small developmental venous anomaly. Contrast-enhanced imaging otherwise unremarkable. No pathologic intracranial enhancement seen. Dural sinuses enhance normally. Upper aspects cervical spine unremarkable. The paranasal sinuses and mastoid air cells are clear. Internal auditory canals symmetric. IMPRESSION: Negative exam. Previously mentioned focus of enhancement right frontal lobe most likely represents a small developmental venous anomaly. Finalized by Jono Muñiz MD on 07/24/2024 12:51 PM Procedure Note Radiology, Radiologist, MD - 07/24/2024 THIS EXAM WAS PERFORMED AT [facility] brain: HISTORY: Persistent headaches. Abnormal brain MRI. Multisequence multiplanar imaging of the brain was obtained and comparedto remote exam dated January 04, 2016. Intravenous contrast wasadministered. There is no cortical signal characteristic abnormalities.Myelination pattern is normal. Ventricles normal in caliber. Thediffusion-weighted images and ADC maps show no focus of diffusion restriction or acuteintracranial ischemia. No cisternal or sulcal effacement. Cerebellartonsils are normal position with symmetric cerebellar hemispheres. Orbitsunremarkable. The pituitary infundibulum is midline. Punctate focus ofenhancement right frontal lobe most likely represents a very small developmental venousanomaly. Contrast-enhanced imaging otherwise unremarkable. No pathologicintracranial enhancement seen. Dural sinuses enhance normally. Upperaspects cervical spine unremarkable. The paranasal sinuses and mastoid aircells are clear. Internal auditory canals symmetric. IMPRESSION: Negative exam. Previously mentioned focus of enhancement right frontal lobe most likelyrepresents a small developmental venous anomaly. Finalized by Jono Muñiz MD on 07/24/2024 12:51 PM Rain Richardson DO IMG MRI PROCEDURES Final Result documented in this encounter Visit Diagnoses Not on filedocumented in this encounter Care Teams Plastic Boat Patcher Relationship Specialty Start Date End Date Unallocated, Noms Junito, [address] [place] [place] [address] PCP - General Family Medicine 05/06/24 Aleyda Rosales NP [address] [place] [id number] Referring Physician Family Medicine 05/06/24 Yessenia Basurto MD [address] [place] [address] Referring Physician Internal Medicine 05/06/24 Rain Richardson DO [address] [place] [address] Referring Physician Neurology 07/01/24 documented as of this encounter
--- OUTSIDE RECORDS SUMMARY | 2024-11-13 09:32 | XMS_ITS | Encounter Summary ---
Author Organization [facility] Sys tem Address [id number] [address] [place] [address] Care Team Providers Care Padding Machine Operator Name Role Phone Aleyda Rosales APRN-EMERY WHEEL MOLDER Primary Care Provider [phone]- [phone] Encounter Details Date Type Department Care Team (Late st Contact Info) Description 08/09/2020 Documentation [facility] Neurology [address] [place] [phone] Sendy Brown MD [address] [place] [address] 101, 102, [address] [place] [address] Social History Tobacco Use Types Packs/Day Years Used Date Smoking Tobacco: Every Day Cigarettes Smokeless Tobacco: Never Alcohol Use Standard Drinks/Week Comments No 0 (1 standard drink = 0.6 oz pur e alcohol) AUDIT-C Answer Date Recorded Frequency of Alcohol Consumption Never 12/10/2019 Average Number of Drinks Not on file 020 Frequency of Binge Drinking Not on file 11/21 Childcare Answer Date Recorded Childcare Unknown 10/01/2018 Employment Answer Date Recorded Employment Unknown 10/01/2018 Purpose - Life Answer Date Recorded Purpose and direction in life Unknown Comments No Sex and Gender Information Value Date Recorded Sex Assigned at Female 01/11/2021 7:27 PM EDT Legal Sex Female 8:03 PM EDT Gender Identity Female 01/11/2021 7:27 PM EDT Sexual Orientation Straight 06/13/2022 3: 56 PM EST documented as of this encounter Plan of Treatment Not on file documented as of this encounter Visit Diagnoses Not on filedocumented in this encounter Additional Health Concerns Infection Onset Date Last Indicated Resolved Time COVID-19 Rule-Out 05/22/2022 05/22/2022 05/22/2022 12:56 PM EST COVID-19 Rule-Out 06/01/2023 06/01/2023 06/01/2023 10:05 AM EST Influenza 06/01/2023 06/01/2023 06/08/2023 11:1 2 PM EST COVID-19 Rule-Out 09/13/2023 09/13/2023 09/13/2023 2:11 PM EDT COVID-19 Rule-Out 01/22/2024 01/22/2024 01/22/2024 8:54 AM EDT documented as of this encounter Care Teams Padding Machine Operator Relationship Specialty Start Date End Date Aleyda Rosales APRN-CLEO [address] [place] [address] PCP - General Family Medicine 05/28/24 documented as of this encounter
--- OUTSIDE RECORDS SUMMARY | 2024-11-13 09:32 | XMS_ITS | Encounter Summary ---
Author Organization [facility] [facility] tem Address [id number] [address] [place] [address] Care Team Providers Care Flat Ironer Name Role Phone Aleyda Rosales APRN-BUSINESS EXCELLENCE LEADER Primary Care Provider [phone]- [phone] Reason for Referral * Cardiology (Routine) - Closed Specialty Diagnoses / Procedures Referred By Contac t Referred To Contact Diagnoses Palpitations Tachycardia Procedures Holter monitor 24-48 hour Laurie Etsrada MD [address] [place] [address] Phone: tel: fax: Referral ID Status Reason Start Date Expiration Date Visits Re quested Visits Authorized [id number] Closed 07/06/2023 07/05/2024 1 1 Encounter Details Date Type Department Care Team (Late st Contact Info) Description 07/06/2023 Orders Only [facility]iology [address] [place] [phone] Candi Calloway RN Palpitations (Primary Dx); Tachycardia Social History Tobacco Use Types Packs/Day Years Used Date Smoking Tobacco: Former Cigarettes Smokeless Tobacco: Never Alcohol Use Standard [...] got money to buy more. Never True 07/06/2023 Within the past 12 months th e food we bought just didn't last and we didn't have money to get more. Never True 07/06/2023 Purpose - Life Answer Date Recorded Purpose [...] on file documented as of this encounter Results * HOLTER MONITOR CANVAS REPAIRER/UP TO 48 HOUR (07/13/2023 10:45 AM EDT) Anatomical Region Laterality Modality Chest N/A Other Narrative 07/25/2023 2:03 PM EDT 48 hour Holter monitor Normal sinus rhythm with appropriate variation in heart rate throughout the monitoring. No significant abnormal tachycardia or bradycardia Patient had no symptoms during the monitoring time period Rare ectopy us Laurie Estrada MD [facility] ORDER ROCÍO Final Result documented in this encounter Visit Diagnoses Diagnosis Palpitations- Primary Tachycardia Unspecified tachycardia Palpitations Tachycardia Unspecified tachycardia documented in this encounter Additional Health Concerns Infection Onset Date Last Indicated Resolved Time COVID-19 Rule-Out 09/13/2023 09/13/2023 09/13/2023 2:11 PM EDT COVID-19 Rule-Out 01/22/2024 01/22/2024 01/22/2024 8:54 AM EDT documented as of this encounter Care Teams Flat Ironer Relationship Specialty Start Date End Date Aleyda Rosales APRN-CLEO [address] [place] [address] PCP - General Family Medicine 05/28/24 documented as of this encounter
--- OUTSIDE RECORDS SUMMARY | 2024-11-13 09:32 | XMS_ITS | Encounter Summary ---
Author Organization [facility] Sys tem Address [id number] [address] [place] [address] Care Team Providers Care Stone Repairer Name Role Phone Aleyda Rosales APRN-PRODUCT DEVELOPMENT ECOLOGIST Primary Care Provider [phone]- [phone] Encounter Details Date Type Department Care Team (Late st Contact Info) Description 01/17/2021 Telephone [facility] [address] [place] [address] Wendy King CMA Social History Tobacco Use Types Packs/Day Years [...] PM EST documented as of this encounter Miscellaneous Notes * Telephone Encounter - Wendy King CMA - 01/17/2021 4:37 PM EDT Received fax that the patient needs a PA on her nurtec. PA completed on cover my meds. Waiting on insurance responds. * Telephone Encounter - Kary Cedeño LPN - 01/17/2021 4:37 PM EDT [facility] approved 12/18/20 - 07/16/21. Approval scanned into patient's chart. documented in this encounter Plan of Treatment [...] documented as of this encounter Care Teams Stone Repairer Relationship Specialty Start Date End Date Aleyda Rosales APRN-CLEO [address] [place] [address] PCP - General Family Medicine 05/28/24 documented as of this encounter
--- OUTSIDE RECORDS SUMMARY | 2024-11-13 09:32 | XMS_ITS | Encounter Summary ---
Author Organization [facility] [employer] s tem Address [id number] [address] [place] [address] Care Team Providers Care Datastage Consultant Name Role Phone Aleyda Rosales CANAL SUPERINTENDENT-ATTORNEY LAWYER Primary Care Provider +1- [phone] Encounter Details Date Type Department Care Team (Late st Contact Info) Description 06/05/2024 Telephone [facility] [address] [place] [address] Andree Ricardo Social History Tobacco Use Types Packs/Day Years [...] got money to buy more. Never True 05/26/2024 Within the past 12 months th e food we bought just didn't last and we didn't have money to get more. Never True 05/26/2024 Purpose - Life Answer Date Recorded Purpose and direction in life Unknown Comments No Sex and Gender Information Value Date Recorded Sex Assigned at Female 01/11/2021 7:27 PM EDT Legal Sex Female 8:03 PM EDT Gender Identity Female 01/11/2021 7:27 PM EDT Sexual Orientation Straight 06/13/2022 3: 56 PM EST documented as of this encounter Miscellaneous Notes * Telephone Encounter - Andree Ricardo - 06/05/2024 10:58 AM EST Patient called stating she was seen in office on 05/26 and in the ED on 05/28. Scheduled in July fora hysterectomy but wants to know what she can do about the terrible abdominal pain she has been encountering? Please advise. * Telephone Encounter - Yamile Stringer MD - 06/05/2024 10:58 AM EST I offered her norethindrone and she states that it raised her blood pressure to 140/100 (which it was at her office visit and she was not on the norethindrone). It appears from her [facility] report that she receives some sort of mariajuana concoction on a regular basis so inquire what that is for. I cannot keep her on narcotics until she has her hysterectomy. Has she tried any muscle relaxer's. Norethindrone (low dose progestin) seems to be the best option at this point. * Telephone Encounter - NAOMI Diaz - 06/05/2024 10:58 AM EST Pt called office and I informed her of what Dr Stringer stated and suggested. Pt states she does haveTizanidine and Flexeril that she takes. Pt states that she will try taking the Norethindrone 5 mg that she was prescribed again. * Telephone Encounter - Yamile Stringer MD - 06/05/2024 10:58 AM EST We can try a Depo Medroxyprogesterone shot? documented in this encounter Plan of Treatment Not on file documented as of this encounter Visit Diagnoses Not on filedocumented in this encounter Additional Health Concerns Assessment Noted Time PHQ-9 Depression Total Score: 2 04/04/20 10:57 AM EST A Body Mass Index follow-up plan has been documented for the patient 04/04/2024 11:29 AM EST documented as of this encounter Care Teams Datastage Consultant Relationship Specialty Start Date End Date Aleyda Rosales APRN-FNP [address] [place] [address] PCP - General Family Medicine 05/28/24 documented as of this encounter
--- OUTSIDE RECORDS SUMMARY | 2024-11-13 09:32 | XMS_ITS | Clinical Summary ---
Author Organization [facility] Address [address], [address] [place] [address] Care Team Providers Care Rotary Adjuster Name Role Phone Aleyda Rosales CUSTOMER SUCCESS DIRECTOR - HOT METAL CHARGER Primary Care Provider [phone] Allergies No known active allergies Medications fezolinetant (VEOZAH) 45 MG TABS Take by mouth Active buPROPion (WELLBUTRIN SR) 150 MG extended release tablet Take 1 tablet by mouth daily Active busPIRone (BUSPAR) 15 MG tablet Take 15 mg by mouth in the morning and at bedtime Active cetirizine (ZYRTEC) 10 MG tablet Take 1 tablet by mouth daily Active hydrOXYzine pamoate (VISTARIL) 25 MG capsule Take 1 capsule by mouth in the morning and at bedtime Active metFORMIN (GLUCOPHAGE-XR) 500 MG extended release tablet Take 1 tablet by mouth daily (with breakfast) Active metoprolol succinate (TOPROL XL) 25 MG extended release tablet Take 1 tablet by mouth daily Active omeprazole (PRILOSEC) 20 MG delayed release capsule Take 1 capsule by mouth daily Active topiramate (TOPAMAX) 100 MG tablet Take 1 tablet by mouth 2 times daily Active Active Problems Problem Noted Date Diagnosed Date Chronic diarrhea of unknown origin 11/21/2023 Abdominal pain 11/21/2023 Abdominal bloating 11/21/2023 Spinal instability, lumbar 06/03/2013 Lumbar disc disease with radiculopathy 4 Family History Medical History Relation Name Comments Diabetes Father Alzheimer's Disease Maternal Grandfather Heart Disease Maternal Grandfather Stroke Maternal Grandfather Arthritis Mother Migraines Mother Stroke Paternal Grandfather Relation Name Status Comments Father Maternal Grandfather Mother Paternal Grandfather Social History Tobacco Use Types Packs/Day Years Used Date Smoking Tobacco: Former Cigarettes 1 20 2 021 - 1992 Comments:1/2 to 1 PPD Alcohol Use [...] on file Sexual Orientation Not on file Last Filed Vital Signs Vital Sign Reading Time Taken Comments Blood Pressure 124/90 11/21/2023 10:00 AM EDT Pulse 63 11/21/2023 10:00 AM EDT Temperature 36.3 C (97.4 F) 11/21/2023 9:18 AM EDT Respiratory Rate 12 11/21/2023 10:00 AM EDT Oxygen Saturation 100% 11/21/2023 10:00 AM EDT Inhaled Oxygen Concentration - - Weight 72.3 kg (159 lb 8 oz) 11/21/2023 7:06 AM EDT Height 165.1 cm (5' 5 ) 11/21/2023 7:06 AM EDT Body Mass Index 26.54 11/21/2023 7:06 AM EDT Plan of Treatment Health Maintenance Due Date Last Done Comments Depression Screen 1988 HIV screen 1991 Hepatitis C screen 1994 DTaP/Tdap/Td vaccine (1 - Tdap) 1995 Hepatitis B vaccine (1 of 3 - 19+ 3-dose series) 1995 Pap smear 1997 Cervical cancer screen 2006 HPV (without or with Pap) 2006 Diabetes screen 2011 Lipids 2016 FIT/FOBT: Average risk 2021 Fecal-DNA (Cologuard): Average risk 2021 Sigmoidoscopy/CT colonography 2021 COVID-19 Vaccine ( season) 2023 Breast cancer screen 06/30/2024 06/30/2022, 05/31/2017, 12/10/2015, Additional history exists Flu vaccine (#1) 11/21/2024 Colonoscopy 11/20/2033 11/21/2023 Colorectal Cancer Screen 11/20/2033 Hepatitis A vaccine Aged Out No longe r eligible based on patient's age to complete this topic Hib vaccine Aged Out No longer eligi ble based on patient's age to complete this topic Meningococcal (ACWY) vaccine Aged Out No longer eligible based on patient's age to complete this topic Meningococcal B vaccine Aged Out No l onger eligible based on patient's age to complete this topic Pneumococcal 0-49 years Vaccine Aged Out No longer eligible based on patient's age to complete this topic Polio vaccine Aged Out No longer elig ible based on patient's age to complete this topic Insurance [facility] WITH [facility] on file Advance Directives * Full Code (Latest Code Status on File) Date Activated Date Inactivated Comments 06/03/2013 2:06 PM 06/04/2013 12:59 PM Care Teams Rotary Adjuster Relationship Specialty Start Date End Date Aleyda Rosales APRN - UMAIR [address] [place] [id number] PCP - General Nurse Practitioner 10/22/23
--- OUTSIDE RECORDS SUMMARY | 2024-11-13 09:32 | XMS_ITS | Clinical Summary ---
Author Organization [facility] Address [address] [place] [address] Care Team Providers Care Class A Regional Drivers Name Role Phone Unallocated, Noms Provider Primary Care Provi alexsander Aleyda Rosales SENIOR SOFTWARE QUALITY ANALYST Unavailable Yessenia Basurto MD Unavailable Rain Richardson DO Unavailable [phone] Allergies No known active allergies Medications busPIRone (Buspar) 10 MG tablet Take 10 mg by mouth every 12 (twelve) hours. Active topiramate (Topamax) 200 MG tablet Take 100 mg by mouth in the morning and 100 mg before bedtime. Active cetirizine (ZyrTEC ALLERGY) 10 MG tablet Take 10 mg by mouth 1 (one) time each day at the same time. Active DULoxetine (Cymbalta) [address] capsule Take 30 mg by mouth Daily Do not crush or chew. Active hydrOXYzine HCl (Atarax) 25 MG tablet Take 25 mg by mouth Active metoprolol tartrate (Lopressor) 25 MG tablet Take 25 mg by mouth 1 (one) time Active omeprazole (PriLOSEC) [address] capsule Take 20 mg by mouth in the morning. Take before meals. Do not crush or chew.. Active Atogepant (Qulipta) 60 MG tabletIndicatio ns:Abnormal brain MRI Take 60 mg by mouth Daily 30 tablet 2 07/01/2024 Active Active Problems Problem Noted Date Diagnosed Date Chronic pansinusitis 09/24/2022 Family History Medical History Relation Name Comments Diabetes Father Alzheimer's disease Maternal Grandfather Luciano Figueredo Dementia Maternal Grandfather Luciano Figueredo Stroke Maternal Grandfather Luciano Figueredo Asthma Mother Nidhi COPD Mother Nidhi Fibromyalgia Mother Nidhi Hyperlipidemia Mother Nidhi Migraines Mother Nidhi Relation Name Status Comments Father Maternal Grandfather Luciano Figueredo Mother Nidhi Social History Tobacco Use Types Packs/Day Years [...] AM EDT Sexual Orientation Not on file Last Filed Vital Signs Vital Sign Reading Time Taken Comments Blood Pressure 108/70 07/01/2024 4:49 PM EDT Pulse 74 07/01/2024 4:49 PM EDT Temperature - - Respiratory Rate - - Oxygen Saturation 100% 07/01/2024 4:49 PM EDT Inhaled Oxygen Concentration - - Weight 67.4 kg (148 lb 9.6 oz) 07/01/2024 4:49 P M EDT Height 165.1 cm (5' 5 ) 07/01/2024 4:49 PM EDT Body Mass Index 24.73 07/01/2024 4:49 PM EDT Plan of Treatment Health Maintenance Due Date Last Done Comments CT Colonography 1976 Colonoscopy 1976 Colorectal Cancer Screening 1976 FIT-DNA 1976 FIT 1976 FOBT 1976 Sigmoidoscopy 1976 Pap Smear 1997 Influenza Vaccine (#1) 2024 02/08/2024, 2013, 12/22/2010 Mammogram 04/04/2025 04/04/2024, 06/21, 05/31/2017, Additional history exists Cervical Cancer Screening 04/04/2029 HPV/Cotest 04/04/2029 04/04/2024, 01/30/2018 Insurance Care Teams Class A Regional Drivers Relationship Specialty Start Date End Date Unallocated, Noms Provider, [address] [place], [place] [phone] PCP - General Family Medicine 05/06/24 Aleyda Rosales NP [address] [place] [phone] Referring Physician Family Medicine 05/06/24 Yessenia Basurto MD [address] [facility] [place] [address] Referring Physician Internal Medicine 05/06/24 Rain Richardson DO [address] [place] [address] Referring Physician Neurology 07/01/24
--- OUTSIDE RECORDS SUMMARY | 2024-11-13 09:32 | XMS_ITS | Encounter Summary ---
Author Organization [facility] Address [id number] [address] [place] [address] Care Team Providers Care Custom Home Installer Name Role Phone Aleyda Rosales APRN-CHILLER HAND Primary Care Provider [phone] Reason for Visit * Reason Onset Date Comments Botulinum Toxin Injection 06/24/2020 Encounter Details Date Type Department Care Team (Late st Contact Info) Description 06/24/2020 Telephone [facility] Neu[facility] [address] [place] [address] Yamile Lafleur Botulinum Toxin Injection Social History Tobacco Use Types Packs/Day Years [...] Orientation Straight 06/13/2022 3: 56 PM EST COVID-19 Exposure Response Date Recorded In the last month, have you been in contact with someone who was confirmed or suspected to have Coronavirus / COVID-19? No / Unsure 06/16/2020 8:27 AM EST documented as of this encounter Miscellaneous Notes * Telephone Encounter - Yamile Lafleur - 06/24/2020 4:15 PM EST Referral from Dr. Felix to Dr. Acuna for botox. May authorization for this be started. Thank you! * Telephone Encounter - Mae Anthony LPN - 06/24/2020 4:15 PM EST PRIOR AUTHORIZATION IS NOT REQUIRED FOR BOTOX, LEFT VOICEMAIL TO SCHEDULE * Telephone Encounter - Mae Anthony LPN - 06/24/2020 4:15 PM EST Spoke with patient and she asked to be scheduled with a different botox provider due to the appointment availability. Patient is scheduled for 06/29/[address] Hollis Anthony LPN 06/25/20 1146 * Telephone Encounter - Mckenna Ortega - 06/24/2020 4:15 PM EST Received call today 08/11/20 1:30 from Gretchen who's a nurse practitioner at [facility] that will be seeing mutual patient. She said that patient is scheduled to receive botox at their clinic and that they did receive info about the amount of units patient uses, but they need clarification on how often patient receives Botox. She said that patient has told her some contradictions of how often shereceives it and that would put her above the maximum dose so they are requesting this information to be sent to them via fax#: [phone]. Their callback# if needed: [phone], ask for Gretchen. * Telephone Encounter - Sendy Brown MD - 06/24/2020 4:15 PM EST Yes that would be fine. For her botox treatments for migraine she is on a 90 day schedule. SNB * Telephone Encounter - Blanca Rowe RN - 06/24/2020 4:15 PM EST Faxed. documented in this encounter Plan of Treatment [...] documented as of this encounter Care Teams Custom Home Installer Relationship Specialty Start Date End Date Aleyda Rosales APRN-CHILLER HAND [address] [place] [address] PCP - General Family Medicine 05/28/24 documented as of this encounter
--- NOTE | 2024-11-13 09:47 | PC.NURSE ---
pt accompanied by boyfriend here today for another spell of abd pain and N/V since sunday. she states shes been getting these on and off since 2019. She does have a migraine as well. She states she's gotten scopes and recently had an MRI of her brain. does admit to smoking marijuana for years. cannot keep water down at all.
--- NOTE | 2024-11-13 09:50 | ED.GENADUL1 ---
HPI HPI - General Adult General Chief complaint: Headache Stated complaint: MIGRAINE Time Seen by Provider: 11/13/24 09:29 Source: patient and family Mode of arrival: Wheelchair Limitations: no limitations History of Present Illness HPI narrative: This 49-year-old female states for the last couple days she has been experiencing nausea and profuse vomiting along with upper abdominal pain she also complains of a headache. She has a history of headaches with an average frequency of 1 week. She is on Topamax for headache prevention. She states that she has had problem with abdominal pain for about a year and has had GI workup in colonoscopy which was negative. She is status post hysterectomy. Related Data Home Medications ?Medication ?Instructions ?Recorded ?Confirmed bupropion HCl 150 mg 24 hr tablet, mg PO 09/13/23 extended release buspirone 10 mg tablet 20 mg PO BID 09/13/23 11/13/24 buspirone 15 mg tablet mg 09/13/23 hydroxyzine pamoate 25 mg capsule 25 mg PO BID 09/13/23 11/13/24 duloxetine 30 mg capsule,delayed 30 mg PO DAILY 11/13/24 11/13/24 release loratadine 10 mg tablet 10 mg PO DAILY 11/13/24 11/13/24 omeprazole 20 mg capsule,delayed 20 mg PO DAILY 11/13/24 11/13/24 release tirzepatide 5 mg/0.5 mL 5 mg subcut QWEEK 11/13/24 11/13/24 subcutaneous pen injector (Mounjaro) topiramate 100 mg tablet 100 mg PO BID 11/13/24 11/13/24 ubrogepant 100 mg tablet (Ubrelvy) 100 mg PO BID PRN headache 11/13/24 11/13/24 Previous Rx's ?Medication ?Instructions ?Recorded promethazine 25 mg tablet 6.25 mg (1/4 x 25 mg) PO TID PRN 11/13/24 nausea and vomiting #20 tabs Allergies Allergy/AdvReac Type Severity Reaction Status Date / Time progesterone AdvReac Intermediate Hypertensio Verified 11/13/24 09:29 n Opioid HPI Opioid Management Most Recent Opioid Data: Ur Phencyclidine Scrn, (NEGATIVE) Negative Today, 11:55 Review of Systems ROS Status of ROS 10 or more systems reviewed and unremarkable except as noted in history and below PFSH PFSH Social History Little interest or pleasure in doing things: not at all Feeling down, depressed, or hopeless: not at all Exam Narrative Exam Narrative: Patient appears in mild discomfort due to her pain. She is afebrile. Vitals are fairly unremarkable. Speech and mentation are clear and intact. Pupils are equal and reactive. HEENT exam is normal to inspection. Neck is supple. Lung sounds are clear to auscultation bilaterally. Heart has regular rate and rhythm. Abdomen is soft epigastric tenderness but without guarding or peritoneal signs. There is no organomegaly. Speech and mentation are clear and intact. There is no facial asymmetry. She moves all extremities actively. She does not have unilateral leg swelling or calf tenderness. Constitutional Vital Signs, click to edit/add: Last Vital Signs Temp 98.7 F 11/13/24 09:29 Pulse 80 11/13/24 11:50 Resp 23 H 11/13/24 11:50 BP 120/81 11/13/24 12:32 Pulse Ox 100 11/13/24 11:40 O2 Del Method Room Air 11/13/24 09:29 Course Vital Signs Vital signs: Vital Signs Temperature 98.7 F 11/13/24 09:29 Pulse Rate 85 11/13/24 09:29 Respiratory Rate 22 H 11/13/24 09:29 Blood Pressure 134/106 H 11/13/24 09:29 Pulse Oximetry 99 11/13/24 09:29 Oxygen Delivery Method Room Air 11/13/24 09:29 Temperature 98.7 F 11/13/24 09:29 Pulse Rate 80 11/13/24 11:50 Respiratory Rate 23 H 11/13/24 11:50 Blood Pressure 120/81 11/13/24 12:32 Pulse Oximetry 100 11/13/24 11:40 Oxygen Delivery Method Room Air 11/13/24 09:29 Medical Decision Making [facility] Narrative Medical decision making narrative: Patient's symptoms are relieved nicely with IV Benadryl, IV Compazine and IV Protonix. Her headache is resolved as is her nausea and vomiting. Urine positive for cannabinoids. I suspect this is part of the problem for her. She is advised outpatient GI workup. She also takes tirzepatide which may be contributing to some nausea and vomiting. She was prescribed promethazine for nausea and vomiting upon discharge and is to return anytime for worsening symptoms. Lab Data Labs: Lab Results 11/13/24 11/13/24 Range/Units 09:37 11:55 WBC 8.1 (4.0-11.0) 10^3/uL RBC 5.23 (4.20-5.40) 10^6/uL Hgb 16.1 H (12.0-16.0) g/dL Hct 45.1 (36.0-48.0) % MCV 86.2 (81.0-99.0) fL MCH 30.8 (26.7-34.0) pg MCHC 35.7 H (29.9-35.2) g/dL RDW 12.7 (11.0-15.0) % Plt Count 386 (150-450) 10^3/uL MPV 9.6 (9.5-13.5) fL Neut % (Auto) 66.7 (43.0-75.0) % Lymph % (Auto) 26.4 (20.5-60.0) % Howell % (Auto) 6.4 (1.7-12.0) % Eos % (Auto) 0.1 L (0.9-7.0) % Baso % (Auto) 0.2 (0.2-2.0) % Neut # (Auto) 5.4 (1.4-6.5) 10^3/uL Lymph # (Auto) 2.1 (1.2-3.8) 10^3/uL Howell # (Auto) 0.5 (0.3-0.8) 10^3/uL Eos # (Auto) 0.0 (0.0-0.7) 10^3/uL Baso # (Auto) 0.0 (0.0-0.1) 10^3/uL Abs Immat Gran (auto) 0.02 (0.00-0.03) 10^3/uL Imm/Tot Granulo (auto) 0.2 (0.0-0.5) % Sodium 140 (136-145) mmol/L Potassium 3.3 L (3.5-5.1) mmol/L Chloride 101 (98-107) mmol/L Carbon Dioxide 20.4 L (21.0-32.0) mmol/L Anion Gap 21.9 BUN 17.0 (7.0-18.0) mg/dL Creatinine 1.38 H (0.55-1.02) mg/dL Est GFR ( Amer) 49 L (>=60 mL/min/1.73m^2) Est GFR (Non-Af Amer) 41 L (>=60 mL/min/1.73m^2) BUN/Creatinine Ratio 12.3 Glucose 96 (74-106) mg/dL Calcium 10.2 H (8.5-10.1) mg/dL Total Bilirubin 0.6 (0.2-1.0) mg/dL AST 9 L (15-37) U/L ALT 15 (14-59) U/L Alkaline Phosphatase 101 (46-116) U/L Total Protein 8.7 H (6.4-8.2) g/dL Albumin 4.9 (3.4-5.0) g/dL Globulin 3.8 g/dL Albumin/Globulin Ratio 1.3 Lipase 32.0 (16.0-77.0) U/L Urine Color Lt. yellow (YELLOW) Urine Clarity Clear (CLEAR) Urine pH 6.0 (5.0-9.0) Ur Specific Wyckoff >=1.030 A (1.005-1.025) Urine Protein Trace (NEG/TRACE) mg/dL Urine Glucose (UA) Negative (NEGATIVE) mg/dL Urine Ketones >=80 A (NEGATIVE) mg/dL Urine Occult Blood Moderate A (NEGATIVE) Urine Nitrite Negative (NEGATIVE) Urine Bilirubin Moderate A (NEGATIVE) Urine Urobilinogen 0.2 (0.2-1.0) EU/dL Ur Leukocyte Esterase Negative (NEGATIVE) Urine RBC 2-5 A (0-2) #/HPF Urine WBC 0-2 A (NONE SEEN) #/HPF Ur Squamous Epith Cells Few A (NONE/RARE) #/LPF Urine Crystals None seen (None Seen) #/HPF Urine Bacteria Trace A (NONE SEEN) #/HPF Urine Casts Seen A (NONE SEEN) #/LPF Hyaline Casts Few Urine Mucus Moderate A (NONE SEEN) Ur Culture Indicated? No Urine Opiates Screen Negative (NEGATIVE) Ur Buprenorphine Scrn Negative (NEGATIVE) Ur Oxycodone Screen Negative (NEGATIVE) Urine Methadone Screen Negative (NEGATIVE) Ur Barbiturates Screen Negative (NEGATIVE) U Tricyclic Antidepress Negative (NEGATIVE) Ur Phencyclidine Scrn Negative (NEGATIVE) Ur Amphetamines Screen Negative (NEGATIVE) U Methamphetamines Scrn Negative (NEGATIVE) U Benzodiazepines Scrn Negative (NEGATIVE) Urine Cocaine Screen Negative (NEGATIVE) U Cannabinoids Screen Positive A (NEGATIVE) Discharge Plan Discharge Chief Complaint: Headache Clinical Impression: Nausea and vomiting, Abdominal pain Patient Disposition: Home, Self-Care Time of Disposition Decision: 12:45 Condition: Good Mode of Transportation: Private Vehicle Prescriptions / Home Meds: New promethazine 25 mg tablet 6.25 mg PO TID PRN (Reason: nausea and vomiting) Qty: 20 0RF Rx Instructions: 3 doses during day; last dose no later than 4 hr before bedtime No Action duloxetine 30 mg capsule,delayed release(DR/EC) 30 mg PO DAILY loratadine 10 mg tablet 10 mg PO DAILY omeprazole 20 mg capsule,delayed release(DR/EC) 20 mg PO DAILY topiramate 100 mg tablet 100 mg PO BID Ubrelvy 100 mg tablet 100 mg PO BID PRN (Reason: headache) Mounjaro 5 mg/0.5 mL pen injector 5 mg subcut QWEEK Patient Comments: on sundays buspirone 10 mg tablet 20 mg PO BID buspirone 15 mg tablet hydroxyzine pamoate 25 mg capsule 25 mg PO BID bupropion HCl 150 mg tablet extended release 24 hr PO Print Language: Kyrgyz Instructions: Acute Nausea and Vomiting (ED), Abdominal Pain (ED) Additional Instructions: Abstain from marijuana use. Follow-up with your physician next week. Return for worsening symptoms. Referrals: Aleyda Rosales NP [Primary Care Provider] - 1 week Discharge Date/Time: 11/13/24 13:05
--- OUTSIDE RECORDS SUMMARY | 2024-11-13 09:53 | XMS_ITS | CCD ---
Author Organization [facility] Care Team Providers Care Right Of Way Appraiser Name Role Phone HUBERT GAYTAN Admitting Unavailable RASOR, ALYSE Primary Care Unavailable RORY FRENCH Attending Unavailable SELF, REFERRED Referring Unavailable SELF, REFERRED Referring Unavailable KHOLWADMANDIATANYA M Admitting Unavailable KHOLWADWALA, FENIL M Attending Unavailable JAQUELINE, EDIN Primary Care Unavailable HUBERT GAYTAN L Admitting Unavailable RASOR, ALYSE Primary Care Unavailable HUBERT GAYTAN L Attending Unavailable SELF, REFERRED Referring Unavailable Timmis, Shelby H Admitting Unavailable Timmis, Shelby H Attending Unavailable Timmis, Shelby H Referring Unavailable SHAMMO, JIMENEZ Primary Care Unavailable SHAMMO, JIMENEZ Admitting Unavailable SHAMMO, JIMENEZ Attending Unavailable SHAMMO, JIMENEZ Primary Care Unavailable SHAMMO, JIMENEZ Consulting Unavailable KNOX, JESUS A Attending Unavailable KNOX, JESUS A Admitting Unavailable CHUCK, ZHANG Primary Care Unavailable Chuck COOK AT [employer]CHO[employer] SLICER MACHINE, Zhang Primary Care Provider [phone] PAULO SHIN Attending Unavailable CHUCK, ZHANG Referring Unavailable CHUCK, ZHANG Primary Care Unavailable ANDREE AU Attending Unavailable CHUCK, ZHANG Referring Unavailable CHUCK, ZHANG Primary Care Unavailable Unavailable Primary Care Provider Unavailabl e Shammo COOK AT SCHO[employer]-INTERIOR PLANT CARETAKER, Jimenez Primary Care Provider [phone] Shammo COOK AT [employer] PLANT CARETAKER, Jimenez Primary Care Provider [phone] Chuck COOK AT [employer] SLICER MACHINE, Zhang Primary Care Provider [phone] Unallocated MD, Noms Provider Primary Care Provi alexsander Chuck KINDER TEACHER, Zhang Unavailable Yessenia Basurto MD Unavailable Amairani Richardson DO Unavailable AMAIRANI RICHARDSON Attending Unavailable YESSENIA BASURTO Referring Unavailable Chuck COOK AT [employer] SLICER MACHINE, [place] Primary Care Provider [phone] PROSPER WATERS Admitting Unavailable PROSPER WATERS Attending Unavailable CHUCK, ZHANG Primary Care Unavailable PROSPER WATERS Attending Unavailable CHUCK, ZHANG Referring Unavailable CHUCK, ZHANG Primary Care Unavailable TUSCARORAPROSPER Attending Unavailable CHUCK, ZHANG Referring Unavailable CHUCK, ZHANG Primary Care Unavailable KENNETH GUTIERREZ Attending Unavailable CHUCK, ZHANG Primary Care Unavailable PROSPER WATERS Referring Unavailable CHUCK, ZHANG Primary Care Unavailable TUSCARORAPROSPER Attending Unavailable CHUCK, ZHANG Referring Unavailable CHUCK, [place] Primary Care Unavailable SHAMMO, JIMENEZ Primary Care Unavailable ERIK MCBRIDE Attending Unavailable CHUCK, ZHANG Primary Care Unavailable WILL YIN Attending Unavailable REMIGIO HUDSON Attending Unavailable SHAMMO, JIMENEZ Referring Unavailable CHUCK, ZHANG Primary Care Unavailable CHUCK, ZHANG Referring Unavailable CHUCK, ZHANG Primary Care Unavailable CHUCK, ZHANG Referring Unavailable CHUCK, ZHANG Primary Care Unavailable LUDA, ANDREE M Referring Unavailable CHUCK, ZHANG Primary Care Unavailable ANDREE AU Attending Unavailable LOVEOTFRANK, ANDREE M Referring Unavailable CHUCK, ZHANG Primary Care Unavailable CHUCK, ZHANG Primary Care Unavailable DANIEL TAVAREZ Attending UnavailAMAIRANI Bennett Attending Unavailable AMAIRANI RICHARDSON Referring Unavailable CHUCK, ZHANG Primary Care Unavailable CHUCK, ZHANG Primary Care Unavailable LYNETTE MCCLAIN Attending Unavailable Allergies Allergy Classification Reported Allergen(s) Allergy Type Date of Onset Reaction(s) Facility Unclassified (2 sources) 03809,00; Translations: [40561,00] Propensity to adverse reactions (disorder) 9 [facility] Repository (1 source) Progesterone; Translations: [PROGESTERONE] Drug Allergy 5 [facility] Repository Medications Current Medications Medication Drug Class(es) Dates Sig (Normalized) Sig (Original) acetaminophen 325 mg / HYDROcodone bitartrate 5 mg oral tablet (1 source) Opioid Agonist Start: 06-20-2024 End: 03-05-2025 HYDROcodone-acetami nophen (NORCO) 5-325 mg per tablet Indications: S/P hysterectomy Take 1 tablet by mouth every 6 (six) hours as needed for pain for up to 5 days. Max Daily Amount: 4 tablets 16 tablet 06/20/2024 06/25/2024 Active Atogepant (Qulipta) 60 MG tablet (2 sources) Start: 07-01-2024 take 1 tablet by mouth once daily Atogepant (Qulipta) 60 MG tablet Indications: Abnormal brain MRI Take 60 mg by mouth Daily 30 tablet 2 07/01/2024 Active busPIRone hydrochloride 10 mg oral tablet (20 sources) take 2 tablets by mouth every twelve hours busPIRone (BUSPAR) 10 mg tablet Take 2 tablets (20 mg total) by mouth every 12 (twelve) hours. Active take 1 tablet by tim th every twelve hours busPIRone (Buspar) 10 MG tablet Take 10 mg by mouth every 12 (twelve) hours. Active cetirizine hydrochloride 10 mg oral tablet (20 sources) Histamine-1 Receptor Antagonist take 1 tablet by mouth in the morning cetirizine (ZyrTEC) 10 mg tablet Take 1 tablet (10 mg total) by mouth in the morning. Active clonazePAM 1 mg oral tablet (4 sources) Benzodiazepine take 1 tablet by mouth in the morning, then take 1 tablet by mouth in the evening clonazePAM (KlonoPIN) 1 mg tablet Take 1 mg by mouth. 2 tabs in the AM and 1 in the PM 0 Active DULoxetine 30 mg delayed release oral capsule (11 sources) Serotonin and Norepinephrine Reuptake Inhibitor Start: 02-01-20 take 1 capsule by mouth in the morning DULoxetine (CYMBALTA) 30 mg capsule Take 1 capsule (30 mg total) by mouth in the morning. 02/01/2024 Active FLUoxetine 40 mg oral capsule (4 sources) Serotonin Reuptake Inhibitor take 1 capsule by mouth in the morning FLUoxetine (PROzac) 40 mg capsule Take 1 capsule (40 mg total) by mouth in the morning. 0 Active hydrOXYzine pamoate 25 mg oral capsule (16 sources) Antihistamine take 2 capsules by mouth at bedtime hydrOXYzine (VISTARIL) 25 mg capsule Take 2 capsules (50 mg total) by mouth in the morning and at bedtime. Active hydrOXYzine HCl (Atarax) 25 MG tablet Take 25 mg by mouth Active lisdexamfetamine dimesylate 40 mg oral capsule (4 sources) Central Nervous System Stimulant Start: 04-12-2015 lisdexamfetamine (VYVANSE) 40 MG capsule 50 mg daily. 0 04/12/2015 Active medroxyPROGESTERone acetate 10 mg oral tablet (4 sources) Progestin Start: 07-13-2020 take 1 tablet by mouth once daily medroxyPROGESTERone (PROVERA) 10 mg tablet take 1 tablet by mouth once daily 10 tablet 0 07/13/2020 Active 24 hr metoprolol succinate 25 mg extended release oral tablet (14 sources) beta-Adrenerg ic Jake Start: 07-30-2024 take 1 tablet by mouth once daily at bedtime metoprolol succinate XL (TOPROL XL) 25 mg 24 hr tablet TAKE 1 TABLET (25 MG TOTAL) BY MOUTH ONCE DAILY AT BEDTIME. 90 tablet 1 07/30/2024 Active Start: 09-14-2023 End: 07-30-2024 take 1 tablet by mouth once daily at bedtime metoprolol succinate XL (TOPROL XL) 25 mg 24 hr tablet Take 1 tablet (25 mg total) by mouth once daily at bedtime. 90 tablet 3 09/14/2023 07/30/2024 Discontinued take 1 tablet by mouth once meto prolol tartrate (Lopressor) 25 MG tablet Take 25 mg by mouth 1 (one) time Active omeprazole 20 mg delayed release oral tablet (12 sources) Proton Pump Inhibitor take 1 tablet by mouth once daily before breakfast omeprazole (PriLOSEC OTC) 20 mg EC tablet Take 1 tablet (20 mg total) by mouth every morning before breakfast. Active take 1 capsule by mouth before m ealtime omeprazole (PriLOSEC) [address] capsule Take 20 mg by mouth in the morning. Take before meals. Do not crush or chew.. Active promethazine hydrochloride 12.5 mg oral tablet (7 sources) Phenothiazine Start: 05-22-2024 take 1 tablet by mouth every six hours as needed for nausea promethazine (PHENERGAN) 12.5 mg tablet Indications: Pelvic pain , Nausea Take 1 tablet (12.5 mg total) by mouth every 6 (six) hours as needed for nausea or vomiting. 30 tablet 05/22/2024 Active rimegepant 75 mg disintegrating oral tablet (4 sources) Start: 06-16-2020 take 1 tablet by mouth every two hours as needed rimegepant 75 mg tablet,disintegrati ng Indications: Intractable migraine without aura and without status migrainosus 1 tab po as needed for severe migraine, may repeat in 2 hrs. Max use: No more than 2/day or 2 days per week. 9 tablet 5 06/16/2020 Active topiramate 100 mg oral tablet (13 sources) take 1 tablet by mouth in the morning, then take 1 tablet by mouth at bedtime topiramate (TOPAMAX) 100 mg tablet Take 1 tablet (100 mg total) by mouth in the morning and 1 tablet (100 mg total) before bedtime. Active topiramate (Topa max) 200 MG tablet Take 100 mg by mouth in the morning and 100 mg before bedtime. Active take 1 tablet by mouth once donya y topiramate (Topamax) 200 MG tablet Take 200 mg by mouth 1 (one) time each day at the same time. Active ubrogepant 100 mg oral tablet (2 sources) Start: 07-01-2024 End: 07-31-2024 take 1 tablet by mouth every two hours, then take 2 tablets by mouth every twenty-four hours Ubrogepant (Ubrelvy) 100 MG tablet Indications: Abnormal brain MRI Take 1 tablet by mouth if needed (May repeat in 2 hours. Max of 2 tablets in 24 hours.) 16 tablet 2 07/01/2024 07/31/2024 Active Completed/Discontinued Medications Medication Drug Class(es) Dates Sig (Normalized) Sig (Original) ARIPiprazole 2 mg oral tablet (3 sources) Atypical Antipsychotic End: 07-01-2024 take 1 tablet by mouth once daily ARIPiprazole (Abilify) 2 MG tablet Take 2 mg by mouth 1 (one) time each day at the same time. 07/01/2024 Discontinued atomoxetine 40 mg oral capsule (10 sources) Norepinephrine Reuptake Inhibitor End: 07-01-2024 take 2 capsules by mouth in the morning atomoxetine (Strattera) 40 MG capsule Take 80 mg by mouth in the morning. 07/01/2024 Discontinued End: 07-06-2023 take 1 capsule by mouth in the morning atomoxetine (STRATTERA) 40 mg capsule Take 1 capsule (40 mg total) by mouth in the morning. 0 07/06/2023 Discontinued benzonatate 100 mg oral capsule (3 sources) Non-narcotic Antitussive Start: 06-01-2023 End: 07-06-2023 take 1 capsule by mouth three times daily as needed for cough benzonatate (TESSALON PERLES) 100 mg capsule Take 1 capsule (100 mg total) by mouth 3 (three) times a day as needed for cough. 21 capsule 0 06/01/2023 07/06/2023 Discontinued 24 hr buPROPion hydrochloride 150 mg extended release oral tablet (10 sources) Aminoketone End: 06-13-2024 take 1 tablet by mouth every twenty-four hours in the morning buPROPion XL (WELLBUTRIN XL) 150 mg 24 hr tablet Take 1 tablet (150 mg total) by mouth in the morning. 06/13/2024 Discontinued (Therapy completed) 24 hr desvenlafaxine succinate 50 mg extended release oral tablet (7 sources) Serotonin and Norepinephrine Reuptake Inhibitor End: 07-01-2024 take 1 tablet by mouth every twenty-four hours in the morning desvenlafaxine (Pristiq) 50 MG 24 hr tablet Take 50 mg by mouth in the morning. 07/01/2024 Discontinued take 1 tablet by mouth once donya y desvenlafaxine (PRISTIQ) 50 mg 24 hr tablet Take 50 mg by mouth daily. 0 Active ibuprofen 800 mg oral tablet (3 sources) Nonsteroidal Anti-inflammatory Drug Start: 06-01-2023 End: 07-06-2023 take 1 tablet by mouth three times daily ibuprofen (MOTRIN) 800 mg tablet Take 1 tablet (800 mg total) by mouth 3 (three) times a day. 21 tablet 0 06/01/2023 07/06/2023 Discontinued lisinopril 10 mg oral tablet (13 sources) Angiotensin Converting Enzyme Inhibitor Start: 03-21-2023 End: 09-14-2023 take 0.5 tablet by mouth in the morning lisinopriL (PRINIVIL,ZESTRIL ) 10 mg tablet Take 0.5 tablets (5 mg total) by mouth in the morning. 03/21/2023 09/14/2023 Discontinued Start: 03-21-2023 take 1 tablet by tim once daily lisinopriL (PRINIVIL,ZESTRIL) 10 mg tablet TAKE 1 TABLET BY MOUTH EVERY DAY FOR 30 DAYS 0 03/21/2023 Active End: 07-01-2024 take 1 tablet by mouth once daily lisinopril 20 MG tablet Take 20 mg by mouth 1 (one) time each day at the same time. 07/01/2024 Discontinued metoclopramide 10 mg oral tablet (2 sources) Dopamine-2 Receptor Antagonist Start: 11-16-2023 End: 02-08-2024 take 1 tablet by mouth every six hours metoclopramide (REGLAN) 10 mg tablet Take 1 tablet (10 mg total) by mouth every 6 (six) hours. 30 tablet 11/16/2023 02/08/2024 Discontinued (Therapy completed) 24 hr nicotine 0.583 mg/hr transdermal system (2 sources) Cholinergic Nicotinic Agonist Start: 06-13-2024 End: 06-27-2024 apply 1 dose transdermal route once daily nicotine (NICODERM CQ) 14 mg/24 hr 1 patch to skin Transdermal Once a day for 14 days 06/13/2024 06/13/2024 Discontinued (Therapy completed) norethindrone acetate 5 mg oral tablet (2 sources) Start: 05-26-2024 End: 06-13-2024 take 1 tablet by mouth in the morning norethindrone (AYGESTIN) 5 mg tablet Take 1 tablet (5 mg total) by mouth in the morning. 30 tablet 1 05/26/2024 06/13/2024 Discontinued (Therapy completed) ondansetron 4 mg disintegrating oral tablet (9 sources) Serotonin-3 Receptor Antagonist Start: 05-28-2024 End: 06-13-2024 take 1 tablet by mouth every eight hours as needed for nausea ondansetron ODT (ZOFRAN ODT) 4 mg disintegrating tablet Dissolve 1 tablet (4 mg total) on tongue every 8 (eight) hours as needed for nausea for up to 6 doses. 6 tablet 05/28/2024 06/13/2024 Discontinued (Therapy completed) Start: 02-08-2024 End: 06-13-2024 take 1 tablet by mouth every six hours as needed for nausea and vomiting ondansetron (ZOFRAN) 4 mg tablet Take 1 tablet (4 mg total) by mouth every 6 (six) hours as needed for nausea or vomiting. 02/08/2024 06/13/2024 Discontinued (Therapy completed) Start: 06-01-2023 End: 07-06-2023 take 1 tablet by mouth every eight hours as needed for nausea and vomiting ondansetron ODT (ZOFRAN ODT) 4 mg disintegrating tablet Dissolve 1 tablet (4 mg total) on tongue every 8 (eight) hours as needed for nausea or vomiting for up to 18 doses. 10 tablet 0 06/01/2023 07/06/2023 Discontinued prazosin 1 mg oral capsule (3 sources) alpha-Adrenergic Jake End: 07-01-2024 take 1 capsule by mouth once daily prazosin (Minipress) 1 MG capsule Take 1 mg by mouth 1 (one) time each day at the same time. 07/01/2024 Discontinued VEOZAH 45 mg tablet (15 sources) Start: 04-02-2023 End: 05-26-2024 take 1 tablet by mouth once daily VEOZAH 45 mg tablet TAKE 1 TABLET BY MOUTH EVERY DAY FOR 30 DAYS 04/02/2023 05/26/2024 Discontinued (Patient Stopped On Own) Start: 04-02-2023 take 1 tablet by tim th once daily VEOZAH 45 mg tablet TAKE 1 TABLET BY MOUTH EVERY DAY FOR 30 DAYS 04/02/2023 Active Start: 04-02-2023 take 1 tablet by tim th once daily VEOZAH 45 mg tablet TAKE 1 TABLET BY MOUTH EVERY DAY FOR 30 DAYS 0 04/02/2023 Active Problems Active Problems Problem Classification Problem Date Documented Da te Episodic/Chronic Conditions associated with dizziness or vertigo (2 sources) Dizziness; Translations: [Dizziness and giddiness] 07-01-2024 Episodic Endometriosis (1 source) Uterine adenomyosis; Translations: [Uterus, adenomyosis] 05-22-2024 Chronic Essential hypertension (20 sources) Benign essential hypertension; Translations: [Essential (primary) hypertension] Onset: 07-06-2023 02-06-2024 Chronic Headache; including migraine (5 sources) Migraine without aura, not refractory ; Translations: [Migraine without aura, not intractable, without status migrainosus] Onset: 07-24-2024 07-01-2024 Chronic Menstrual disorders (20 sources) Menometrorrhagia; Translations: [Excessive and frequent menstruation with irregular cycle] Onset: 05-22-2024 05-22-2024 Chronic Noninfectious gastroenteritis (1 source) Noninfective gastroenteritis and colitis, unspecified; Translations: [Noninfective gastroenteritis and colitis, unspecified] Onset: 11-21-2023 Episodic Other aftercare (2 sources) Surgical follow-up; Translations: [Encounter for follow-up examination after completed treatment for conditions other than malignant neoplasm] 06-30-2024 Episodic Other female genital disorders (1 source) Abnormal uterine bleeding due to intramural uterine fibroid; Translations: [Abnormal uterine and vaginal bleeding, unspecified] 05-22-2024 Chronic Other female genital disorders (2 sources) Abnormal uterine and vaginal bleeding, unspecified; Translations: [Abnormal uterine and vaginal bleeding, unspecified] Onset: 05-02-2024 Chronic Other female genital disorders (1 source) Abnormal uterine bleeding; Translations: [Abnormal uterine and vaginal bleeding, unspecified] 04-04-2024 Chronic Other female genital disorders (1 source) History of gynecological disorder; Translations: [Personal history of other diseases of the female genital tract] 04-04-2024 Episodic Other gastrointestinal disorders (1 source) Abdominal distension (gaseous); Translations: [Abdominal distension (gaseous)] Onset: 11-21-2023 Episodic Other lower respiratory disease (1 source) Other forms of dyspnea; Translations: [OTHER FORMS OF DYSPNEA] Onset: 09-02-2022 Episodic Other screening for suspected conditions (not mental disorders or infectious disease) (10 sources) Magnetic resonance imaging of brain abnormal; Translations: [Other abnormal findings on diagnostic imaging of central nervous system] Onset: 04-04-2024 07-01-2024 Episodic Other upper respiratory infections (3 sources) Chronic pansinusitis; Translations: [Chronic pansinusitis] Onset: 09-24-2022 09-24-2022 Chronic Residual codes; unclassified (8 sources) History of endometrial ablation; Translations: [Other specified postprocedural states] Onset: 05-30-2024 05-22-2024 Episodic Residual codes; unclassified (2 sources) Other specified postprocedural states; Translations: [Other specified postprocedural states] Onset: 05-22-2024 Episodic Residual codes; unclassified (1 source) Acquired absence of both cervix and uterus; Translations: [Acquired absence of both cervix and uterus] Onset: 06-20-2024 Episodic Screening and history of mental health and substance abuse codes (2 sources) Encounter for screening for depression; Translations: [Standardized adult depression screening tool completed ] Onset: 04-04-2024 04-04-2024 Episodic Thyroid disorders (1 source) Nontoxic goiter, unspecified; Translations: [Nontoxic goiter, unspecified] Onset: 04-04-2024 Chronic Unclassified (1 source) Adenomyosis of the uterus; Translations: [Adenomyosis of the uterus] Onset: 05-22-2024 Unclassified (1 source) Annual Exam Onset: 04-04-2024 Unclassified (1 source) Post-op Onset: 07-31-2024 Unclassified (1 source) Menorrhagia with irregular cycle [N92.1] Onset: 06-20-2024 Unclassified (1 source) GI Problem Onset: 01-22-2024 Past or Other Problems Problem Classification Problem Date Documented Da te Episodic/Chronic Abdominal pain (9 sources) Unspecified abdominal pain; Translations: [Pain in pelvis] Onset: 11-16-2023 05-22-2024 Episodic Benign neoplasm of uterus (4 sources) Intramural leiomyoma of uterus; Translations: [Uterine leiomyoma] Onset: 05-22-2024 06-13-2024 Episodic Cardiac dysrhythmias (20 sources) Tachycardia; Translations: [Tachycardia, unspecified] Onset: 07-06-2023 07-06-2023 Episodic Mood disorders (8 sources) Mood disorders Onset: 04-04-2024 04-04-2024 Nausea and vomiting (5 sources) Nausea; Translations: [Nausea] Onset: 11-16-2023 05-22-2024 Episodic Nonspecific chest pain (6 sources) Other chest pain; Translations: [Atypical chest pain] Onset: 08-29-2022 Episodic Other female genital disorders (2 sources) Personal history of other diseases of the female genital tract; Translations: [Personal history of other diseases of the female genital tract] Onset: 04-04-2024 Episodic Syncope (19 sources) Syncope and collapse; Translations: [Syncope and collapse] Onset: 07-06-2023 07-06-2023 Episodic Unclassified (8 sources) Onset: 04-04-2024 04-04-2024 Results Test Name Value Interpretation Reference Range Facility CBC WITH AUTO DIFFERENTIALon 10-02-2024 BASOPHILS ABSOLUTE COUNT (10*3/UL) BY AUTOMATED COUNT 0.0 10*3/uL Normal 0.0-0.2 [facility] Comment on above: Performed By: #### C WARD CALLAHAN, , [id number] #### [facility] ([id number]) [address] [place] [address] 80628 BASOPHILS RELATIVE PERCENT BY AUTOMATED COUNT 0.6 % Normal [facility] Comment on above: Performed By: #### C SINDY CMP, , #### [facility] ([id number]) [address] [place] [address] [id number] CELLAVISION DIFFERENTIAL TYPE AUTOMATED DIFFERENTIAL Normal [facility] Comment on above: Performed By: #### C WARD CALLAHAN, , #### [facility] ([id number]) [address] [place] [address] 84071 Eosinophils (Bld) [#/Vol] 0.1 10*3/uL Normal 0.0-0.4 [facility] Comment on above: Performed By: #### C WARD CALLAHAN, , #### [facility] ([id number]) [address] [place] [address] 81398 EOSINOPHILS RELATIVE PERCENT BY AUTOMATED COUNT 1.0 % Normal [facility] Comment on above: Performed By: #### C SINDY CMP, , 63556-6 #### [facility] ([id number]) [address] [place] [address] 37543 Erythrocyte distribution width (RBC) [Ratio] 13.4 % Normal 11.5-15 [facility] Comment on above: Performed By: #### C SINDY CMP, , #### [facility] ([id number]) [address] [place] [address] 87127 Hematocrit (Bld) [Volume fraction] 41.8 % Normal 35-47 [facility] Comment on above: Performed By: #### C SINDY, CMP, , #### [facility] ([id number]) [address] [place] [address] 06607 Hemoglobin (Bld) [Mass/Vol] 14.3 g/dL Normal 11.7-15.5 [facility] Comment on above: Performed By: #### C BCA, CMP, , #### [facility] ([id number]) [address] [place] [address] 85563 LYMPHOCYTES ABSOLUTE COUNT (10*3/UL) BY AUTOMATED COUNT 1.9 10*3/uL Normal 1.0-3.5 [facility] Comment on above: Performed By: #### C SINDY, CMP, , #### [facility] ([id number]) [address] [place] [address] 05205 LYMPHOCYTES RELATIVE PERCENT BY AUTOMATED COUNT 36.3 % Normal [facility] Comment on above: Performed By: #### C BCA, CMP, , #### [facility] ([id number]) [address] [place] [address] 32476 MCH (RBC) [Entitic mass] 30.9 pg Normal 27-34 [facility] Comment on above: Performed By: #### C BCA, CMP, , #### [facility] ([id number]) [address] [place] [address] 09106 MCHC (RBC) [Mass/Vol] 34.1 g/dL Normal 32-36 [facility] Comment on above: Performed By: #### C BCA, CMP, , #### [facility] ([id number]) [address] [place] [address] 89466 MCV (RBC) [Entitic vol] 91 fL Normal 80-100 [facility] Comment on above: Performed By: #### C SINDY CMP, [id number], #### [facility] ([id number]) [address] [place] [address] 86069 MONOCYTES ABSOLUTE COUNT (10*3/UL) BY AUTOMATED COUNT 0.3 10*3/uL Normal 0.0-0.9 [facility] Comment on above: Performed By: #### C SINDY, CMP, , #### [facility] ([id number]) [address] [place] [address] 92699 MONOCYTES RELATIVE PERCENT BY AUTOMATED COUNT 5.9 % Normal [facility] Comment on above: Performed By: #### Eda CALLAHAN, CMP, , #### [facility] ([id number]) [address] [place] [address] 87947 NEUTROPHILS ABSOLUTE COUNT BY AUTOMATED COUNT 2.9 10*3/uL Normal 1.5-6.6 [facility] Comment on above: Performed By: #### Eda CALLAHAN, CMP, , #### [facility] ([id number]) [address] [place] [address] 10605 NEUTROPHILS RELATIVE PERCENT BY AUTOMATED COUNT 56.2 % Normal [facility] Comment on above: Performed By: #### C BCA, CMP, , #### [facility] ([id number]) [address] [place] [address] 93331 Platelet mean volume (Bld) [Entitic vol] 6.8 fL Low 7-12 [facility] Comment on above: Performed By: #### Eda CALLAHAN, CMP, , #### [facility] ([id number]) [address] [place] [address] 16892 Platelets (Bld) [#/Vol] 362 10*3/uL Normal 150-450 [facility] Comment on above: Performed By: #### C BCA, CMP, [id number], [id number] #### [facility] ([id number]) [address] [place] [address] 16134 RBC COUNT 4.62 X10E12/L Normal 3.8-5.2 [facility] Comment on above: Performed By: #### C BCA, CMP, 46927-5, 09941-8 #### [facility] ([id number]) [address] [place] [address] 90078 WBC (Bld) [#/Vol] 5.2 10*3/uL Normal 4-11 [facility] Comment on above: Performed By: #### C BCA, CMP, 75740-2, 82568-4 #### [facility] ([id number]) [address] [place] [address] 32675 COMPREHENSIVE METABOLIC PANE Uzair 10-02-2024 Albumin [Mass/Vol] 4.6 g/dL Normal 3.2-5.3 [facility] Comment on above: Performed By: #### C BCA, CMP, 35253-0, 79529-8 #### [facility] ([id number]) [address] [place] [address] 33663 ALP [Catalytic activity/Vol] 82 U/L Normal 39-130 [facility] Comment on above: Performed By: #### C BCA, CMP, 91955-5, 85288-3 #### [facility] ([id number]) [address] [place] [address] 04600 ALT [Catalytic activity/Vol] 11 U/L Normal <=31 [facility] Comment on above: Performed By: #### C BCA, CMP, 88517-1, 53574-5 #### [facility] ([id number]) [address] [place] [address] 60533 Anion gap [Moles/Vol] 7 mmol/L Normal 5-15 [facility] Comment on above: Performed By: #### C BCA, CMP, 07386-8, 09528-9 #### [facility] ([id number]) [address] [place] [address] 99149 AST [Catalytic activity/Vol] 12 U/L Normal <=41 [facility] Comment on above: Performed By: #### C BCA, CMP, , 12169-3 #### [facility] ([id number]) [address] [place] [address] 95514 Bilirubin [Mass/Vol] 0.6 mg/dL Normal 0.3-1.2 [facility] Comment on above: Performed By: #### C BCA, CMP, , #### [facility] ([id number]) [address] [place] [address] 38369 Calcium [Mass/Vol] 9.3 mg/dL Normal 8.5-10.5 [facility] Comment on above: Performed By: #### C BCA, CMP, , 65360-0 #### [facility] ([id number]) [address] [place] [address] 24394 Chloride [Moles/Vol] 111 mmol/L High 98-109 [facility] Comment on above: Performed By: #### C BCA, CMP, , 52019-0 #### [facility] ([id number]) [address] [place] [address] 23414 CO2 [Moles/Vol] 20 mmol/L Low 22-32 [facility] Comment on above: Performed By: #### C BCA, CMP, , 88009-3 #### [facility] ([id number]) [address] [place] [address] 43580 Creatinine [Mass/Vol] 1.05 mg/dL High 0.40-1.00 [facility] Comment on above: Result Comment: METH OD TRACEABLE TO IDMS STANDARD Performed By: #### C WARD CALLAHAN, 12496-0, 05536-4 #### [facility] ([id number]) [address] [place] [address] 62176 GFR/1.73 sq M.predicted among non-blacks MDRD (S/P/Bld) [Vol rate/Area] 66 mL/min/{1.73_m2} Normal >=60 [facility] Comment on above: Result Comment: eGFR not reported due to non-numeric value for Creatinine. Reported eGFR is based on the CKD-EPI 2020 equation that does not use a race coefficient. Performed By: #### C WARD CALLAHAN, , 21885-2 #### [facility] ([id number]) [address] [place] [address] 60432 Glucose [Mass/Vol] 96 mg/dL Normal 65-99 [facility] Comment on above: Performed By: #### C WARD CALLAHAN, , 19467-9 #### [facility] ([id number]) [address] [place] [address] 72115 Potassium [Moles/Vol] 3.7 mmol/L Normal 3.5-5.0 [facility] Comment on above: Performed By: #### C WARD CALLAHAN, , 62347-9 #### [facility] ([id number]) [address] [place] [address] 86548 Protein [Mass/Vol] 7.7 g/dL Normal 6.0-8.0 [facility] Comment on above: Performed By: #### C WARD CALLAHAN, , 42004-0 #### [facility] ([id number]) [address] [place] [address] Sodium [Moles/Vol] 138 mmol/L Normal 134-146 [facility] Comment on above: Performed By: #### C SINDY CMP, 36044-6, 20336-7 #### [facility] ([id number]) [address] [facility], [place] [address] Urea nitrogen [Mass/Vol] 15 mg/dL Normal 5-23 [facility] Comment on above: Performed By: #### C SINDY CMP, 75407-8, 68762-2 #### [facility] ([id number]) [address] [facility], [place] [address] CT ABDOMEN AND PELVIS W CONT on 10-02-2024 CT ABDOMEN AND PELVIS W CONT CT ABDOMEN AND PELVIS W CONT ABDOMEN AND PELVIS CT WITH CONTRAST HISTORY: [...] by Phil Martínez on 10/02/2024 2:54 PM Normal [facility] LIPASEon 10-02-2024 Lipase [Catalytic activity/Vol] 35 U/L Normal 17-40 [facility] Comment on above: Performed By: #### C SINDY CMP, 86794-7, 19580-2 #### [facility] ([id number]) [address] [place] [address] SERUM PREGNANCYon 10-02-2024 SERUM Negative Normal Negative [facility] Comment on above: Performed By: #### C BCA CMP, 51306-1, 65318-1 #### [facility] ([id number]) [address] [place] [address] MR BRAIN W WO CONTon 025 MR BRAIN W WO CONT MR BRAIN W WO CONT MRI brain: HISTORY: Persistent headaches. Abnormal brain MRI. [...] Jono Muñiz MD on 07/24/2024 12:51 PM Normal [facility] COMPLETE BLOOD COUNTon 06-20 Erythrocyte distribution width (RBC) [Ratio] 13.2 % Normal 11.5-15.0 [facility] Comment on above: Performed By: #### C BC #### [facility] ([id number]) [address] [place] [address] Hematocrit (Bld) [Volume fraction] 38.3 % Normal 35-47 [facility] Comment on above: Performed By: #### C BC #### [facility] ([id number]) [address] [place] [address] Hemoglobin (Bld) [Mass/Vol] 12.9 g/dL Normal 11.7-15.5 [facility] Comment on above: Performed By: #### C BC #### [facility] ([id number]) [address] [place] [address] MCH (RBC) [Entitic mass] 30.4 pg Normal 27-34 [facility] Comment on above: Performed By: #### C BC #### [facility] ([id number]) [address] [place] [address] MCHC (RBC) [Mass/Vol] 33.7 g/dL Normal 32-36 [facility] Comment on above: Performed By: #### C BC #### [facility] ([id number]) [address] [place] [address] MCV (RBC) [Entitic vol] 90 fL Normal 80-100 [facility] Comment on above: Performed By: #### C BC #### [facility] ([id number]) [address] [place] [address] Platelet mean volume (Bld) [Entitic vol] 7.2 fL Normal 7-12 [facility] Comment on above: Performed By: #### C BC #### [facility] ([id number]) [address] [place] [address] Platelets (Bld) [#/Vol] 280 10*3/uL Normal 150-450 [facility] Comment on above: Performed By: #### C BC #### [facility] ([id number]) [address] [place] [address] RBC COUNT 4.25 X10E12/L Normal 3.80-5.20 [facility] Comment on above: Performed By: #### C BC #### [facility] ([id number]) [address] [place] [address] WBC (Bld) [#/Vol] 11.5 10*3/uL High 4.0-11.0 [facility] Comment on above: Performed By: #### C BC #### [facility] ([id number]) [address] [place] [address] HCG ( test) Ql (U)o n 06-20-2024 Beta HCG ( test) Ql (U) Negative Normal NEG [facility] Comment on above: Performed By: #### 2 106-3 #### [facility] ([id number]) [address] [place] [address] Surgical Pathologyon 025 Surgical Pathology Normal [facility] Comment on above: Result Comment: [facility] [address] [place] [address] Surgical Pathology Consultation Patient Name:ANDREE OROZCO:1975 (Age: 49)Gender:FTaken:06/20/2024Reported:06/27/2024Physician(s):Prosper Waters MD ([phone])Copy To: Rec. #:[id number]: #[id number] Final Pathologic Diagnosis Cervix and uterus, resection: Cervix: Unremarkable. Endometrium: Atrophic, consistent with status post ablation. Myometrium: Leiomyomata. Report Electronically Signed Out rg/06/27/2024Piotr Schuler MD Interpretation performed at [facility], [address] [facility] [address], License number: [id number]. Clinical History Menorrhagia with irregular cycle, dysmenorrhea, status post endometrial ablation Gross Description Received in formalin labeled ERNESTO uterus, cervix is a 169 g uterus with attached cervix, resected without attached bilateral adnexa. The uterus is 4 cm cornu-cornu, 3.2 cm anterior-posterior and 7 cm fundus-ectocervical face. The uterine serosa is purple-hernandez smooth and glistening. The ectocervical mucosa is smooth and glistening within ovoid and patent ectocervical os. Upon opening there is a scarred endometrial cavity, 1.5 x 1.5 cm, consistent with previous ablation. No endometrium is identified. Myometrium is pink-hernandez trabecular, up to 1.8 cm in thickness. There are numerous intramural nodules ranging from 0.8 cm to 1.2 cm in greatest dimension, with no necrosis or hemorrhage identified. Cassettes: A Cervix 12:00 B Cervix 6:00 C Serosa to include posterior cul-de-sac D-E Anterior endomyometrium to include intramural nodules in both cassettes F-G Posterior endomyometrium to include intramural nodules in both cassettes (7, ss, [id number], m6.1) MD alcocer/06/20/2024NSK Specimen(s) Received Uterus, cervix Fee Codes(s): 1; 41788 ABO Rh Repe[place] 06-13-2024 ABO O [facility] Rh Nom (Bld) Positive [facility] Type and screen(includes ind irect pinky)on 06-13-2024 ABO O [facility] Rh Nom (Bld) Positive [facility] CBC AND AUTO DIFFon 05-28-19 25 ABSOLUTE BASOPHIL 0.0 X10E9/L Normal 0.0-0.2 [facility] Comment on above: Performed By: #### C WARD CALLAHAN, 95030-59 #### [facility] ([id number]) [address] [place] [address] 16166 ABSOLUTE NEUTROPHIL 4.8 X10E9/L Normal 1.5-6.6 [facility] Comment on above: Performed By: #### C WARD CALLAHAN, 46854-69 #### [facility] ([id number]) [address] [place] [address] 34458 Basophils/100 WBC (Bld) 0.5 % Normal [facility] Comment on above: Performed By: #### C WARD CALLAHAN, 9 #### [facility] ([id number]) [address] [place] [address] 56397 Eosinophils (Bld) [#/Vol] 0.0 10*3/uL Normal 0.0-0.4 [facility] Comment on above: Performed By: #### C SINDY CMP, 30867-1, 09281-3 #### [facility] ([id number]) [address] [place] [address] 80076 Eosinophils/100 WBC (Bld) 0.5 % Normal [facility] Comment on above: Performed By: #### C SINDY CMP, , 43804-4 #### [facility] ([id number]) [address] [place] [address] 78385 Erythrocyte distribution width (RBC) [Ratio] 13.4 % Normal 11.5-15.0 [facility] Comment on above: Performed By: #### Eda CALLAHAN, CMP, , 53793-8 #### [facility] ([id number]) [address] [place] [address] 94739 Hematocrit (Bld) [Volume fraction] 42.5 % Normal 35-47 [facility] Comment on above: Performed By: #### C SINDY, CMP, , 05081-0 #### [facility] ([id number]) [address] [place] [address] 21042 Hemoglobin (Bld) [Mass/Vol] 14.1 g/dL Normal 11.7-15.5 [facility] Comment on above: Performed By: #### C SINDY, CMP, , 28569-9 #### [facility] ([id number]) [address] [place] [address] 31444 Lymphocytes (Bld) [#/Vol] 1.7 10*3/uL Normal 1.0-3.5 [facility] Comment on above: Performed By: #### C SINDY, CMP, , #### [facility] ([id number]) [address] [place] [address] 53269 Lymphocytes/100 WBC (Bld) 25.1 % Normal [facility] Comment on above: Performed By: #### C BCA, CMP, , #### [facility] ([id number]) [address] [place] [address] 66641 MCH (RBC) [Entitic mass] 30.0 pg Normal 27-34 [facility] Comment on above: Performed By: #### C SINDY, CMP, , #### [facility] ([id number]) [address] [place] [address] 12238 MCHC (RBC) [Mass/Vol] 33.3 g/dL Normal 32-36 [facility] Comment on above: Performed By: #### C BCA, CMP, , #### [facility] ([id number]) [address] [place] [address] 76894 MCV (RBC) [Entitic vol] 90 fL Normal 80-100 [facility] Comment on above: Performed By: #### C SINDY, CMP, , #### [facility] ([id number]) [address] [place] [address] 53303 Monocytes (Bld) [#/Vol] 0.2 10*3/uL Normal 0-0.9 [facility] Comment on above: Performed By: #### C BCA, CMP, , #### [facility] ([id number]) [address] [place] [address] 70658 Monocytes/100 WBC (Bld) 3.3 % Normal [facility] Comment on above: Performed By: #### C BCA, CMP, , 78916-4 #### [facility] ([id number]) [address] [place] [address] 47027 Neutrophils/100 WBC (Bld) 70.6 % Normal [facility] Comment on above: Performed By: #### C BCA, CMP, , 39045-9 #### [facility] ([id number]) [address] [place] [address] 28804 Platelet mean volume (Bld) [Entitic vol] 7.9 fL Normal 7-12 [facility] Comment on above: Performed By: #### C SINDY, CMP, , 31008-7 #### [facility] ([id number]) [address] [place] [address] 55561 Platelets (Bld) [#/Vol] 365 10*3/uL Normal 150-450 [facility] Comment on above: Performed By: #### C BCA, CMP, , 93841-9 #### [facility] ([id number]) [address] [place] [address] 69705 RBC COUNT 4.72 X10E12/L Normal 3.80-5.20 [facility] Comment on above: Performed By: #### C BCA, CMP, , 70750-6 #### [facility] ([id number]) [address] [place] [address] 17091 WBC (Bld) [#/Vol] 6.9 10*3/uL Normal 4.0-11.0 [facility] Comment on above: Performed By: #### C BCA, CMP, , 70495-3 #### [facility] ([id number]) [address] [place] [address] 17451 COMPREHENSIVE METABOLIC PANE Uzair 05-28-2024 Albumin [Mass/Vol] 4.9 g/dL Normal 3.2-5.3 [facility] Comment on above: Performed By: #### C BCA, CMP, 25859-1, 61985-1 #### [facility] ([id number]) [address] [place] [address] 13455 ALP [Catalytic activity/Vol] 75 U/L Normal 39-130 [facility] Comment on above: Performed By: #### C BCA, CMP, 22649-5, 10498-8 #### [facility] ([id number]) [address] [place] [address] 08788 ALT [Catalytic activity/Vol] 11 U/L Normal 0-31 [facility] Comment on above: Performed By: #### C BCA, CMP, 44675-4, 62496-3 #### [facility] ([id number]) [address] [place] [address] 24178 Anion gap [Moles/Vol] 6 mmol/L Normal 5-15 [facility] Comment on above: Performed By: #### C BCA, CMP, , 55579-1 #### [facility] ([id number]) [address] [place] [address] 71188 AST [Catalytic activity/Vol] 16 U/L Normal 0-41 [facility] Comment on above: Performed By: #### C BCA, CMP, 97026-0, 46544-2 #### [facility] ([id number]) [address] [place] [address] 26894 Bilirubin [Mass/Vol] 0.8 mg/dL Normal 0.3-1.2 [facility] Comment on above: Performed By: #### C BCA, CMP, 26361-5, 67748-8 #### [facility] ([id number]) [address] [place] [address] 46786 Calcium [Mass/Vol] 9.4 mg/dL Normal 8.5-10.5 [facility] Comment on above: Performed By: #### C SINDY, CMP, 85762-5, 36262-4 #### [facility] ([id number]) [address] [place] [address] 40244 Chloride [Moles/Vol] 111 mmol/L High 98-109 [facility] Comment on above: Performed By: #### C BCA, CMP, 36512-3, 73416-9 #### [facility] ([id number]) [address] [place] [address] 23763 CO2 [Moles/Vol] 20 mmol/L Low 22-32 [facility] Comment on above: Performed By: #### C SINDY CMP, , 47345-8 #### [facility] ([id number]) [address] [place] [address] 26653 Creatinine [Mass/Vol] 1.05 mg/dL High 0.40-1.00 [facility] Comment on above: Result Comment: METH OD TRACEABLE TO IDMS STANDARD Performed By: #### C WARD CALLAHAN, , 29254-6 #### [facility] ([id number]) [address] [place] [address] 65989 GFR/1.73 sq M.predicted among non-blacks MDRD (S/P/Bld) [Vol rate/Area] 66 mL/min/{1.73_m2} Normal >59 [facility] Comment on above: Result Comment: Reported eGFR is based on the CKD-EPI 2020 equation that does not use a race coefficient. Performed By: #### C SINDY, CMP, 67985-2, 56765-8 #### [facility] ([id number]) [address] [place] [address] 56856 Glucose [Mass/Vol] 113 mg/dL High 65-99 [facility] Comment on above: Performed By: #### C BCA, CMP, 25896-2, 28818-5 #### [facility] ([id number]) [address] [place] [address] 71895 Potassium [Moles/Vol] 3.8 mmol/L Normal 3.5-5.0 [facility] Comment on above: Performed By: #### C BCA, CMP, 70198-8, 40919-9 #### [facility] ([id number]) [address] [place] [address] 56118 Protein [Mass/Vol] 8.0 g/dL Normal 6.0-8.0 [facility] Comment on above: Performed By: #### C BCA, CMP, 11231-9, 48815-8 #### [facility] ([id number]) [address] [place] [address] 07389 Sodium [Moles/Vol] 137 mmol/L Normal 134-146 [facility] Comment on above: Performed By: #### C BCA, CMP, 96536-1, #### [facility] ([id number]) [address] [place] [address] 80826 Urea nitrogen [Mass/Vol] 15 mg/dL Normal 5-23 [facility] Comment on above: Performed By: #### C BCA, CMP, 36044-5, 36486-4 #### [facility] ([id number]) [address] [place] [address] 06697 HCG ( test) Ql (U)o n 05-28-2024 Beta HCG ( test) Ql (U) Negative Normal NEG [facility] Comment on above: Performed By: #### C BCA, CMP, 30285-4, 68425-4 #### [facility] ([id number]) [address] [place] [address] 52347 LIPASEon 05-28-2024 Lipase [Catalytic activity/Vol] 33 U/L Normal 17-40 [facility] Comment on above: Performed By: #### C BCA, CMP, 64633-6, #### [facility] ([id number]) [address] [place] [address] 35935 Troponin I.cardiac High sens itivity method [Mass/Vol]on 05-28-2024 1 HOUR TROP I, HIGH SENSITIVITY <2 Normal <16 [facility] Comment on above: Performed By: #### C BCA, CMP, 00686-4, #### [facility] ([id number]) [address] [place] [address] 32889 TROPONIN I, HIGH SENSITIVITY <2 Normal <16 [facility] Comment on above: Performed By: #### C SINDY, CMP, , #### [facility] ([id number]) [address] [place] [address] [place] [address] URN MACROSCOPIC NURon 2024 BILIRUBIN ELZA Negative Normal NEG [facility] Comment on above: Performed By: #### C BCA, CMP, , #### [facility] ([id number]) [address] [place] [address] [place] [address] BLOOD/HGB ELZA Trace Abnormal NEG [facility] Comment on above: Performed By: #### C BCA, CMP, , #### [facility] ([id number]) [address] [place] [address] [place] [address] GLUCOSE ELZA Negative Normal NEG [facility] Comment on above: Performed By: #### C BCA, CMP, , #### [facility] ([id number]) [address] [place] [address] 01830 KETONES ELZA Trace Abnormal NEG [facility] Comment on above: Performed By: #### C BCA, CMP, , #### [facility] ([id number]) [address] [place] [address] [place] [address] LEUKOCYTE ESTERASE ELZA Negative Normal NEG [facility] Comment on above: Performed By: #### C BCA, CMP, 16292-8, 76261-7 #### [facility] ([id number]) [address] [place] [address] 35733 NITRITE ELZA Negative Normal NEG [facility] Comment on above: Performed By: #### C BCA, CMP, 45852-8, #### [facility] ([id number]) [address] [place] [address] 66308 PH ELZA 6.5 Normal 5.0-8.5 [facility] Comment on above: Performed By: #### C BCA, CMP, 53275-0, #### [facility] ([id number]) [address] [place] [address] 84380 PROTEIN ELZA Negative Normal NEG [facility] Comment on above: Performed By: #### C BCA, CMP, , 02764-1 #### [facility] ([id number]) [address] [place] [address] 67131 SPECIFIC GRAVITY ELZA 1.015 Normal 1.003-1.035 [facility] Comment on above: Performed By: #### C BCA, CMP, , 42982-0 #### [facility] ([id number]) [address] [place] [address] 08506 UROBILINOGEN ELZA 0.2 eu/dL Normal <1.1 [facility] Comment on above: Performed By: #### C BCA, CMP, 19556-0, 37465-2 #### [facility] ([id number]) [address] [place] [address] 41269 US PELVIC WITH TRANSVAGINALo n 05-02-2024 US PELVIC WITH TRANSVAGINAL US PELVIC WITH TRANSVAGINAL US PELVIC WITH TRANSVAGINAL HISTORY: Abnormal uterine bleeding, pelvic pain, prior endometrial ablation COMPARISON: CT abdomen and pelvis 01/22/2024 and pelvic ultrasound 06/04/2008 TECHNIQUE: Transabdominal and transvaginal sonographic evaluation of the pelvis. Transabdominal imaging performed to evaluate for extra adnexal pelvic pathology. Transvaginal imaging performed for better delineation of the adnexal and endometrial contents. Color Doppler used. FINDINGS: Uterus: 7.2 x 4.2 x 4.1 cm Endometrial Thickness: 3.9 mm Right Ovary: 1.8 x 1.5 x 1.4 cm Left Ovary: 2.5 x 2.3 x 1.4 cm The uterus demonstrates appropriate size noting heterogeneous myometrium. The endometrium is unremarkable. Multiple isoechoic/hypoechoic lesions within the uterus likely representing fibroids, the largest is a posterior fundal intramural 2.0 x 2.0 x 1.5 cm myoma. No significant intralesional vascularity demonstrated by color Doppler. The ovaries are unremarkable. Dominant right ovarian follicle. Normal color flow bilaterally. No adnexal masses demonstrated. No free fluid. IMPRESSION: 1. Heterogeneous myometrium which may reflect adenomyosis. Recommend clinical correlation and consider enhanced MR of the pelvis for further characterization if warranted. 2. Myomatous uterus noting the largest myoma measures 2.0 cm (posterior fundal intramural, FIGO 4) Approved by Jules Jimenez MD on 05/02/2024 10:01 AM ---- FIGO classification Type 0 Pedunculated, intracavitary Type 1 Submucosal, <50% intramural Type 2 Submucosal, ?50% intramural Type 3 Contact with endometrium, 100% intramural Type 4 Intramural Type 5 Subserosal, ?50% intramural Type 6 Subserosal, <50% intramural Type 7 Subserosal, pedunculated Type 8 Other (e.g., cervical, parasitic) I, Shira Carrasco MD have personally reviewed the image(s) and agree with and/or edited the report Finalized by Shira Carrasco MD on 05/02/2024 11:47 AM Normal [facility] MAMM SCREENING BILATERAL W C [employer] 04-07-2024 MAMM SCREENING BILATERAL W CAD MAMM SCREENING BILATERAL W CAD ANDREE OROZCO 1975 [id number] EXAM: MAMM SCREENING BILATERAL W CAD, 04/04/2024 8:59 AM CLINICAL INDICATIONS: Screening, Encounter for screening mammogram for malignant neoplasm of breast COMPARISON: 06/30/2022 TECHNIQUE: Bilateral digital tomosynthesis MLO and CC views of the breasts were obtained, with creation of synthetic 2D views. Computer aided detection was utilized. FINDINGS: The breasts are heterogeneously dense, which may obscure small masses. There are no suspicious masses, calcifications, or areas of architectural distortion. IMPRESSION: No mammographic evidence of malignancy. BI-RADS: BI-RADS 1 - Negative RECOMMENDATION: Routine screening mammogram in 1 year. RISK ASSESSMENT: TC Lifetime risk: Some 0.8%. The patient's reported personal and family medical history was used calculate their Tyrer-Cuzick lifetime risk of malignancy. Scores less than 20% are not considered high risk per ACR guidelines and patient should continue with the above recommendation. Finalized by Fahad Cottrell MD on 04/07/2024 8:52 AM 1 c MAMM 1 YR Normal [facility] US THYROIDon 04-07-2024 US THYROID US THYROID CLINICAL INFORMATION: Thyroid goiter. TECHNIQUE: Real time sonography of the thyroid gland performed. COMPARISON: Thyroid ultrasound 12/20/2015 FINDINGS: Thyroid size: Normal Right thyroid lobe measures: 5.7 x 1.4 x 2.3 cm Left thyroid lobe measures: 4.9 x 1.0 x 1.5 cm Overall thyroid texture: Homogeneous Nodule # 1 Maximum size/location: 1.6 x 1.5 x 1.4 cm, right mid, previously 1.4 x 1.3 x 1.6 cm in 2016 Composition: Mixed cystic/solid -1 Echogenicity: Hypoechoic - 2 Shape: Not taller than wide -0 Margins: Smooth - 0 Echogenic foci: Macrocalcifications - 1 Additional echogenic foci: Peripheral calcifications - 2 Significant change in size (greater than 20% 2 dimensions): No Change in features: No Change in ACR TI RADS risk category: No ACR TI-RADS total points: 6 ACR TI RADS risk category: TR4 (4-6) ACR TI RADS Recommendation: no further follow-up, patient reports previous FNA. IMPRESSION: Right TR-4 thyroid nodule measuring 1.6 cm is not significantly changed since 2016. Patient reports a prior FNA. Please correlate with prior biopsy results. ACR TI-RADS recommendations: TR5 (greater than or equal to 7 points) - FNA if greater than or equal to 1cm, follow-up ultrasound if nodule is 0.5 - 0.9 cm every year for 5 years. TR4 (4 - 6 points) - FNA if greater than or equal to 1.5 cm, follow-up ultrasound if nodule is 1 -1.4 cm at 1, 2, 3 and 5 years. TR3 (3 points) - FNA if greater than or equal to 2.5 cm, follow-up ultrasound if nodule is 1.5 -2.4 cm at 1, 3 and 5 years. TR2 (2 points) & TR1 (0 points) - No FNA or follow-up. Finalized by Yovany Park MD on 04/07/2024 10:55 AM Normal [facility] Cytologyon 04-04-2024 Cytology Normal [facility] Comment on above: Result Comment: [facility] [address] [place] [address] Gynecologic Cytology Consultation Patient Name:ANDREE OROZCO:1975 (Age: 48)Gender:FTaken:4Reported:04/21/2024hysician(s):Andree Au APRN-[facility] ([phone])Copy To: Rec. #:[id number]: #[id number] Final Cytologic Interpretation ThinPrep Pap Test (Cervical): Satisfactory for evaluation. A transformation zone component is present. NEGATIVE FOR INTRAEPITHELIAL LESION OR MALIGNANCY. [facility]/04/21/2024 Interpretation performed at [facility], [address] [place] [address], License number: [id number]. Electronically Signed Out By MANASA Bean(ASCP) Date of Last Menstrual Period: (None Given) Other Clinical Conditions: Menopausal Clinical History: postmenopausal Z01.419 Locomotive Operator exam wo/abn findings Source of Specimen ThinPrep Pap Test (Cervical) Thin Prep Pap (SENIOR PASTOR) Fee Code(s): G0145 The Pap test is a screening test with an inherent, but low, probability of error. The Pap test is primarily effective for the diagnosis and prevention of squamous cell carcinoma. Regular screening is critical for prevention. ThinPrep liquid-based slides, which meet the Education Courses Sales Representative criteria for automated screening, have been screened by the ThinPrep Imaging System (as of 01/07/07) along with an additional manual rescreening by a inclusion manager and, if indicated, by a pathologist. HIGH RISK HPV W/GENOon 04-04 HPV 31+33+35+39+45+51+5 2+56+58+59+66+68 DNA ELENA+probe Ql (Cvx) HPV SPECIMEN TYPE ThinPrep HPV 16 Negative (qualifier value) HPV 18 Negative (qualifier value) OTHER HIGH RISK HPV Negative (qualifier value) HPV types 31,33,35,39,45,52,56,58, 59,66 and 68 DNA were undetectable. Normal [facility] Comment on above: Performed By: #### C BCA, CMP, 38690-3, 98651-8 #### [facility] ([id number]) [address] [place] [address] 51086 BASIC METABOLIC PANLon 01-21 Anion gap [Moles/Vol] 7 mmol/L Normal 5-15 [facility] Comment on above: Performed By: #### C BCA, BMP, 3040-3, LIVR #### [facility] ([id number]) [address] [place] [address] 74141 Calcium [Mass/Vol] 9.1 mg/dL Normal 8.5-10.5 [facility] Comment on above: Performed By: #### C BCA, BMP, 3040-3, LIVR #### [facility] ([id number]) [address] [place] [address] 38722 Chloride [Moles/Vol] 109 mmol/L Normal 98-109 [facility] Comment on above: Performed By: #### C YAMILET CALLAHAN, 3039-, LIVR #### [facility] ([id number]) [address] [place] [address] 23993 CO2 [Moles/Vol] 19 mmol/L Low 22-32 [facility] Comment on above: Performed By: #### C YAMILET CALLAHAN, 3, LIVR #### [facility] ([id number]) [address] [place] [address] 71732 Creatinine [Mass/Vol] 1.04 mg/dL High 0.40-1.00 [facility] Comment on above: Result Comment: METH OD TRACEABLE TO IDMS STANDARD Performed By: #### C AYMILET CALLAHAN, 3039-06, LIVR #### [facility] ([id number]) [address] [place] [address] 78118 GFR/1.73 sq M.predicted among non-blacks MDRD (S/P/Bld) [Vol rate/Area] 67 mL/min/{1.73_m2} Normal >59 [facility] Comment on above: Result Comment: Reported eGFR is based on the CKD-EPI 2020 equation that does not use a race coefficient. Performed By: #### C YAMILET CALLAHAN, 3039-06, LIVR #### [facility] ([id number]) [address] [place] [address] 21683 Glucose [Mass/Vol] 106 mg/dL High 65-99 [facility] Comment on above: Performed By: #### C YAMILET CALLAHAN, 3039-, LIVR #### [facility] ([id number]) [address] [place] [address] 98246 Potassium [Moles/Vol] 3.9 mmol/L Normal 3.5-5.0 [facility] Comment on above: Performed By: #### C BCA, BMP, 3040-3, LIVR #### [facility] ([id number]) [address] [place] [address] 82455 Sodium [Moles/Vol] 135 mmol/L Normal 134-146 [facility] Comment on above: Performed By: #### C BCA, BMP, 3040-3, LIVR #### [facility] ([id number]) [address] [place] [address] 86999 Urea nitrogen [Mass/Vol] 13 mg/dL Normal 5-23 [facility] Comment on above: Performed By: #### C SINDY, BMP, 0-3, LIVR #### [facility] ([id number]) [address] [place] [address] 44846 CBC AND AUTO DIFFon 01-22-20 24 ABSOLUTE BASOPHIL 0.0 X10E9/L Normal 0.0-0.2 [facility] Comment on above: Performed By: #### C BCA, BMP, 0-3, LIVR #### [facility] ([id number]) [address] [place] [address] 85188 ABSOLUTE NEUTROPHIL 4.7 X10E9/L Normal 1.5-6.6 [facility] Comment on above: Performed By: #### C BCA, BMP, 0-3, LIVR #### [facility] ([id number]) [address] [place] [address] 26245 Basophils/100 WBC (Bld) 0.5 % Normal [facility] Comment on above: Performed By: #### C BCA, BMP, 0-3, LIVR #### [facility] ([id number]) [address] [place] [address] 15885 Eosinophils (Bld) [#/Vol] 0.0 10*3/uL Normal 0.0-0.4 [facility] Comment on above: Performed By: #### C BCA, BMP, 3040-3, LIVR #### [facility] ([id number]) [address] [place] [address] 87741 Eosinophils/100 WBC (Bld) 0.5 % Normal [facility] Comment on above: Performed By: #### C YAMILET CALLAHAN, 3, LIVR #### [facility] ([id number]) [address] [place] [address] 70202 Erythrocyte distribution width (RBC) [Ratio] 13.9 % Normal 11.5-15.0 [facility] Comment on above: Performed By: #### C YAMILET CALLAHAN, 3039-06, LIVR #### [facility] ([id number]) [address] [place] [address] 71233 Hematocrit (Bld) [Volume fraction] 42.1 % Normal 35-47 [facility] Comment on above: Performed By: #### C YAMILET CALLAHAN, 3039-06, LIVR #### [facility] ([id number]) [address] [place] [address] 91710 Hemoglobin (Bld) [Mass/Vol] 14.1 g/dL Normal 11.7-15.5 [facility] Comment on above: Performed By: #### C YAMILET CALLAHAN, 3039-06, LIVR #### [facility] ([id number]) [address] [place] [address] 12955 Lymphocytes (Bld) [#/Vol] 1.2 10*3/uL Normal 1.0-3.5 [facility] Comment on above: Performed By: #### C YAMILET CALLAHAN, 3, LIVR #### [facility] ([id number]) [address] [place] [address] 75289 Lymphocytes/100 WBC (Bld) 19.0 % Normal [facility] Comment on above: Performed By: #### C SINDY BMP, 3, LIVR #### [facility] ([id number]) [address] [place] [address] 79409 MCH (RBC) [Entitic mass] 30.2 pg Normal 27-34 [facility] Comment on above: Performed By: #### C BCA, BMP, 3040-3, LIVR #### [facility] ([id number]) [address] [place] [address] 53253 MCHC (RBC) [Mass/Vol] 33.4 g/dL Normal 32-36 [facility] Comment on above: Performed By: #### C SINDY, BMP, 3040-3, LIVR #### [facility] ([id number]) [address] [place] [address] 14916 MCV (RBC) [Entitic vol] 90 fL Normal 80-100 [facility] Comment on above: Performed By: #### C BCA, BMP, 0-3, LIVR #### [facility] ([id number]) [address] [place] [address] 77310 Monocytes (Bld) [#/Vol] 0.3 10*3/uL Normal 0-0.9 [facility] Comment on above: Performed By: #### C BCA, BMP, 3040-3, LIVR #### [facility] ([id number]) [address] [place] [address] 95860 Monocytes/100 WBC (Bld) 5.5 % Normal [facility] Comment on above: Performed By: #### C BCA, BMP, 3040-3, LIVR #### [facility] ([id number]) [address] [place] [address] 03975 Neutrophils/100 WBC (Bld) 74.5 % Normal [facility] Comment on above: Performed By: #### C BCA, BMP, 3040-3, LIVR #### [facility] ([id number]) [address] [place] [address] 40338 Platelet mean volume (Bld) [Entitic vol] 7.1 fL Normal 7-12 [facility] Comment on above: Performed By: #### C YAMILET CALLAHAN, 3040-3, LIVR #### [facility] ([id number]) [address] [place] [address] Platelets (Bld) [#/Vol] 379 10*3/uL Normal 150-450 [facility] Comment on above: Performed By: #### C YAMILET CALLAHAN, 3040-3, LIVR #### [facility] ([id number]) [address] [place] [address] 92104 RBC COUNT 4.66 X10E12/L Normal 3.80-5.20 [facility] Comment on above: Performed By: #### C YAMILET CALLAHAN, 3040-3, LIVR #### [facility] ([id number]) [address] [place] [address] 22476 WBC (Bld) [#/Vol] 6.4 10*3/uL Normal 4.0-11.0 [facility] Comment on above: Performed By: #### C YAMILET CALLAHAN, 3040-3, LIVR #### [facility] ([id number]) [address] [place] [address] ABDOMEN AND PELVIS WO CON Ton 01-22-2024 CT ABDOMEN AND PELVIS WO CONT CT ABDOMEN AND PELVIS WO CONT CLINICAL INFORMATION: Abdominal pain, acute, nonlocalized. TECHNIQUE: CT Abdomen and Pelvis without intravenous contrast. All CT scans at this facility use dose modulation, iterative reconstruction, and/or weight based dosing when appropriate to reduce radiation dose to as low as reasonably achievable. COMPARISON: No relevant prior studies available. FINDINGS: Lung bases are normal. The liver, spleen, pancreas, gallbladder, adrenals, and kidneys are unremarkable. There is a nonobstructing 2 mm calculus in the right kidney. No hydronephrosis. Bladder is normal. Likely cyst or follicle in the right ovary measuring 2.0 cm, no follow-up required. No bowel obstruction. Appendix is normal. Mild atherosclerotic calcifications. Postoperative changes in the spine, some degenerative changes are also noted. IMPRESSION: * No acute findings in the abdomen/pelvis. Finalized by Padilla Terry MD on 01/22/2024 9:47 AM Normal [facility] LIPASEon 01-22-2024 Lipase [Catalytic activity/Vol] 29 U/L Normal 17-40 [facility] Comment on above: Performed By: #### C YAMILET CALLAHAN, 3040-3, LIVR #### [facility] ([id number]) [address] [place] [address] 29364 LIVER PANELon 01-22-2024 Albumin [Mass/Vol] 4.6 g/dL Normal 3.2-5.3 [facility] Comment on above: Performed By: #### C YAMILET CALLAHAN, 3040-3, LIVR #### [facility] ([id number]) [address] [place] [address] 06607 ALP [Catalytic activity/Vol] 96 U/L Normal 39-130 [facility] Comment on above: Performed By: #### C YAMILET CALLAHAN, 3040-3, LIVR #### [facility] ([id number]) [address] [place] [address] 78625 ALT [Catalytic activity/Vol] 11 U/L Normal 0-31 [facility] Comment on above: Performed By: #### C YAMILET CALLAHAN, 3040-3, LIVR #### [facility] ([id number]) [address] [place] [address] 28908 AST [Catalytic activity/Vol] 13 U/L Normal 0-41 [facility] Comment on above: Performed By: #### C SINDY BMP, 3040-3, LIVR #### [facility] ([id number]) [address] [place] [address] 94406 Bilirubin [Mass/Vol] 0.7 mg/dL Normal 0.3-1.2 [facility] Comment on above: Performed By: #### C BCA, BMP, 3040-3, LIVR #### [facility] ([id number]) [address] [place] [address] 77498 Bilirubin.indirect [Mass/Vol] mg/dL Normal 0.0-0.4 [facility] Comment on above: Performed By: #### C BCA, BMP, 3040-3, LIVR #### [facility] ([id number]) [address] [place] [address] 41358 Protein [Mass/Vol] 7.6 g/dL Normal 6.0-8.0 [facility] Comment on above: Performed By: #### C BCA, BMP, 3040-3, LIVR #### [facility] ([id number]) [address] [place] [address] RAPID STREP SCR NURSINGon S. pyogenes Ag EIA Ql (Throat) Negative Normal NEG [facility] Comment on above: Performed By: #### C SINDY, [facility], 59050-6, 86634-0 #### [facility] ([id number]) [address] [place] [address] 87894 SARS/FLU A+B/RSV by NAAT/Mol ecularon 01-22-2024 SARS/FLU A+B/RSV by NAAT/Molecular FLU A PCR Negative (qualifier value) FLU B PCR Negative (qualifier value) RSV by PCR Negative (qualifier value) SARS CoV 2 Not detected (qualifier value) NOTE The Xpert Xpress SARS-CoV-2/Flu/RSV Plus test is a rapid, multiplexed real-time RT-PCR test intended for the simultaneous qualitative detection and differentiation of SARS-CoV-2, influenza A, influenza B and respiratory syncytial virus (RSV) viral RNA from individuals suspected of respiratory viral infection consistent with COVID-19 by their healthcare provider. This test has not been validated in asymptomatic patients. The Xpert Xpress SARS-CoV-2 test is intended for use by qualified and trained operators who are performing tests using either GeneXpert DX or GeneXpert Infinity systems and is limited to laboratories that meet the CLIA requirements to perform high and moderate complexity tests. The Xpert Xpress SARS-CoV-2/Flu/RSV Plus is only for use under the Food and Drug Administration's Emergency Use Authorization. Results are for the simultaneous detection and differentiation of SARS-CoV-2, influenza A, influenza B and RSV nucleic acids in clinical specimens. SARS-CoV-2, influenza A, influenza B and RSV RNA identified by this test are generally detectable in upper respiratory samples during the acute phase of infection. Positive results are indicative of the presence of the identified virus, but do not rule out bacterial infection or co-infection with other pathogens not detected by this test. Clinical correlation with patient history and other diagnostic information is necessary to determine patient infection status. The agent detected may not be the definite cause of disease. Negative results do not preclude SARS-CoV-2, influenza A, influenza B and RSV infection and should not be used as the sole basis for treatment or other patient management decisions. Negative results must be combined with clinical observations, patient history and epidemiological information. An Invalid result may occur with specimen-associated inhibition unable to be resolved with specimen repeat. Fact Sheet for Healthcare Providers: https://www.fda.gov/medi a/253853/download Fact Sheet for Patients: https://www.fda.gov/medi a/448916/download Normal [facility] Comment on above: Performed By: #### C BCA, CMP, 94780-9, 79165-9 #### [facility] ([id number]) [address] [place] [address], [place] [address] Glucose,Whole Bloodon 2023 Glucose [Mass/Vol] 94 mg/dL Normal 65-99 [facility] HCG, ,Urineon 11-20 Beta HCG ( test) Ql (U) Negative Normal NEG [facility] Comment on above: Performed By: #### U HCG #### [facility] [address] [place] [address] Field Service Coordinator: Antonino Calderon MD Surgical Pathology Reporton 11-21-2023 Surgical Pathology Report (NOTE) Path Number: [id number] -- Diagnosis -- A. Small intestine, distal duodenum, endoscopic biopsy: Normal duodenal mucosa. B. Stomach, antrum, endoscopic biopsy: Fragments of normal gastric mucosa, negative for Helicobacter pylori. C. Stomach, body, endoscopic biopsy: Fragments of normal gastric fundic mucosa. D. Esophagus, distal, endoscopic biopsy: Fragments of normal squamous and gastric mucosa, negative for intestinal metaplasia or dysplasia. E. Small intestine, ileum, colonoscopic biopsy: Normal terminal ileal-type mucosa. F. Colon, right, colonoscopic biopsy: Fragments of normal colonic mucosa. Darlene Caba. Electronically Signed Out 11/23/2023 Clinical Information Pre-Op Diagnosis: CHRONIC DIARRHEA OF UNKNOWN ORIGIN, ABDOMINAL PAIN, ABDOMINAL BLOATING Operative Findings: DISTAL DUODENUM BIOPSY; ANTRUM BIOPSY; GASTRIC BODY BIOPSY; DISTAL ESOPHAGUS BIOPSY; ILEUM BIOPSY; RIGHT COLON BIOPSY Operation Performed: COLONOSCOPY BIOPSY; EGD BIOPSY mj Source of Specimen A: DISTAL DUODENUM BIOPSY B: ANTRUM BIOPSY C: GASTRIC BODY BIOPSY D: DISTAL ESOPHAGUS BIOPSY E: ILEUM BIOPSY F: RIGHT COLON BIOPSY Gross Description A. ANDREE JAREDILIA, DISTAL DUODENUM BIOPSY Received in formalin are three hernandez-white tissue fragments from < 0.1 to 0.6 cm and are 0.8 x 0.2 x 0.1 cm in aggregate. Entirely 1cs. B. ANDREE JAROS, ANTRUM BIOPSY Received in formalin are three hernandez-white tissue fragments from < 0.1 to 0.6 cm and are 1.2 x 0.2 x 0.2 cm in aggregate. Entirely 1cs. C. ANDREE JAROS, GASTRIC BODY BIOPSY Received in formalin are two hernandez-white tissue fragments from 0.4 to 0.5 cm and are 0.9 x 0.2 x 0.2 cm in aggregate. Entirely 1cs. D. ANDREE JAROS, DISTAL ESOPHAGUS BIOPSY Received in formalin are two hernandez-white tissue fragments each 0.2 cm and are 0.4 x 0.1 x 0.1 cm in aggregate. Entirely 1cs. E. ANDREE JAROS, ILEUM BIOPSY Received in formalin are two hernandez-white tissue fragments from < 0.1 to 0.6 cm and are 0.6 x 0.3 x 0.2 cm in aggregate. Entirely 1cs. F. ANDREE JAROS, RIGHT COLON BIOPSY Received in formalin are four hernandez-white tissue fragments from 0.1 to 0.5 cm and are 0.7 x 0.5 x 0.2 cm in aggregate. Entirely 1cs. jj tm Janes Gognora M.D./mj:11/21/2023 Microscopic Description A-F. 2 LITZY reviewed for each. Microscopic examination performed. Processing Lab: [address] [address] Interpretation Performed at [address] [address] SURGICAL PATHOLOGY CONSULTATION Patient Name: ANDREE OROZCO Rec: [id number] [facility] [employer] [facility] ANATOMIC PATHOLOGY [facility]. [place], [place] [address] Normal [facility] CBC AND AUTO DIFFon 11-16-19 24 ABSOLUTE BASOPHIL 0.0 X10E9/L Normal 0.0-0.2 [facility] Comment on above: Performed By: #### C BCA, CMP, 38579-4, 79400-9 #### [facility] ([id number]) [address] [place] [address] 04051 ABSOLUTE NEUTROPHIL 4.7 X10E9/L Normal 1.5-6.6 [facility] Comment on above: Performed By: #### C BCA, CMP, 45051-4, 30310-7 #### [facility] ([id number]) [address] [place] [address] 60887 Basophils/100 WBC (Bld) 0.4 % Normal [facility] Comment on above: Performed By: #### C BCA, CMP, 18115-4, 81971-7 #### [facility] ([id number]) [address] [place] [address] 49312 Eosinophils (Bld) [#/Vol] 0.0 10*3/uL Normal 0.0-0.4 [facility] Comment on above: Performed By: #### C BCA, CMP, , 97428-1 #### [facility] ([id number]) [address] [place] [address] 77465 Eosinophils/100 WBC (Bld) 0.5 % Normal [facility] Comment on above: Performed By: #### C BCA, CMP, , 88087-1 #### [facility] ([id number]) [address] [place] [address] 95944 Erythrocyte distribution width (RBC) [Ratio] 13.6 % Normal 11.5-15.0 [facility] Comment on above: Performed By: #### C BCA, CMP, , #### [facility] ([id number]) [address] [place] [address] 09390 Hematocrit (Bld) [Volume fraction] 41.9 % Normal 35-47 [facility] Comment on above: Performed By: #### C BCA, CMP, , 77548-0 #### [facility] ([id number]) [address] [place] [address] 37915 Hemoglobin (Bld) [Mass/Vol] 14.1 g/dL Normal 11.7-15.5 [facility] Comment on above: Performed By: #### C BCA, CMP, , 44847-5 #### [facility] ([id number]) [address] [place] [address] 00280 Lymphocytes (Bld) [#/Vol] 1.8 10*3/uL Normal 1.0-3.5 [facility] Comment on above: Performed By: #### C BCA, CMP, , 95773-1 #### [facility] ([id number]) [address] [place] [address] 90512 Lymphocytes/100 WBC (Bld) 25.8 % Normal [facility] Comment on above: Performed By: #### C BCA, CMP, , #### [facility] ([id number]) [address] [place] [address] 47867 MCH (RBC) [Entitic mass] 30.0 pg Normal 27-34 [facility] Comment on above: Performed By: #### C BCA, CMP, , #### [facility] ([id number]) [address] [place] [address] 97361 MCHC (RBC) [Mass/Vol] 33.7 g/dL Normal 32-36 [facility] Comment on above: Performed By: #### C BCA, CMP, , #### [facility] ([id number]) [address] [place] [address] 62714 MCV (RBC) [Entitic vol] 89 fL Normal 80-100 [facility] Comment on above: Performed By: #### C BCA, CMP, , #### [facility] ([id number]) [address] [place] [address] 36483 Monocytes (Bld) [#/Vol] 0.5 10*3/uL Normal 0-0.9 [facility] Comment on above: Performed By: #### C BCA, CMP, , #### [facility] ([id number]) [address] [place] [address] 04683 Monocytes/100 WBC (Bld) 6.7 % Normal [facility] Comment on above: Performed By: #### C BCA, CMP, , #### [facility] ([id number]) [address] [place] [address] 48392 Neutrophils/100 WBC (Bld) 66.6 % Normal [facility] Comment on above: Performed By: #### C BCA, CMP, , #### [facility] ([id number]) [address] [place] [address] 58225 Platelet mean volume (Bld) [Entitic vol] 7.3 fL Normal 7-12 [facility] Comment on above: Performed By: #### C BCA, CMP, , 02681-9 #### [facility] ([id number]) [address] [place] [address] 85491 Platelets (Bld) [#/Vol] 378 10*3/uL Normal 150-450 [facility] Comment on above: Performed By: #### C BCA, CMP, , 03684-7 #### [facility] ([id number]) [address] [place] [address] 09436 RBC COUNT 4.69 X10E12/L Normal 3.80-5.20 [facility] Comment on above: Performed By: #### C BCA, CMP, , 13290-9 #### [facility] ([id number]) [address] [place] [address] [phone] WBC (Bld) [#/Vol] 7.0 10*3/uL Normal 4.0-11.0 [facility] Comment on above: Performed By: #### C BCA, CMP, , 29462-8 #### [facility] ([id number]) [address] [place] [address] [id number] COMPREHENSIVE METABOLIC PANE Uzair 11-16-2023 Albumin [Mass/Vol] 4.9 g/dL Normal 3.2-5.3 [facility] Comment on above: Performed By: #### C BCA, CMP, , 57808-2 #### [facility] ([id number]) [address] [place], [place] [address] ALP [Catalytic activity/Vol] 91 U/L Normal 39-130 [facility] Comment on above: Performed By: #### C BCA, CMP, , 72785-4 #### [facility] ([id number]) [address] [place] [address] 59402 ALT [Catalytic activity/Vol] 13 U/L Normal 0-31 [facility] Comment on above: Performed By: #### C BCA, CMP, , #### [facility] ([id number]) [address] [place] [address] 49880 Anion gap [Moles/Vol] 10 mmol/L Normal 5-15 [facility] Comment on above: Performed By: #### C BCA, CMP, , 99776-1 #### [facility] ([id number]) [address] [place] [address] 09114 AST [Catalytic activity/Vol] 16 U/L Normal 0-41 [facility] Comment on above: Performed By: #### C BCA, CMP, , 44636-4 #### [facility] ([id number]) [address] [place] [address] 61473 Bilirubin [Mass/Vol] 0.7 mg/dL Normal 0.3-1.2 [facility] Comment on above: Performed By: #### C BCA, CMP, , 83929-3 #### [facility] ([id number]) [address] [place] [address] 90640 Calcium [Mass/Vol] 9.4 mg/dL Normal 8.5-10.5 [facility] Comment on above: Performed By: #### C BCA, CMP, , 88044-4 #### [facility] ([id number]) [address] [place] [address] 07497 Chloride [Moles/Vol] 107 mmol/L Normal 98-109 [facility] Comment on above: Performed By: #### C BCA, CMP, , 43062-3 #### [facility] ([id number]) [address] [place] [address] 95862 CO2 [Moles/Vol] 21 mmol/L Low 22-32 [facility] Comment on above: Performed By: #### C WARD CALLAHAN, , 16274-0 #### [facility] ([id number]) [address] [place] [address] 37957 Creatinine [Mass/Vol] 1.21 mg/dL High 0.40-1.00 [facility] Comment on above: Result Comment: METH OD TRACEABLE TO IDMS STANDARD Performed By: #### C WARD CALLAHAN, , 18925-1 #### [facility] ([id number]) [address] [place] [address] 96789 GFR/1.73 sq M.predicted among non-blacks MDRD (S/P/Bld) [Vol rate/Area] 56 mL/min/{1.73_m2} Low >59 [facility] Comment on above: Result Comment: Reported eGFR is based on the CKD-EPI 2020 equation that does not use a race coefficient. Performed By: #### C WARD CALLAHAN, , 83481-5 #### [facility] ([id number]) [address] [place] [address] 66175 Glucose [Mass/Vol] 128 mg/dL High 65-99 [facility] Comment on above: Performed By: #### C WARD CALLAHAN, , 74774-8 #### [facility] ([id number]) [address] [place] [address] 87571 Potassium [Moles/Vol] 3.4 mmol/L Low 3.5-5.0 [facility] Comment on above: Performed By: #### C SINDY CMP, , #### [facility] ([id number]) [address] [place] [address] 31627 Protein [Mass/Vol] 8.5 g/dL High 6.0-8.0 [facility] Comment on above: Performed By: #### C SINDY CMP, 35621-2, 12285-2 #### [facility] ([id number]) [address] [place] [address] 20505 Sodium [Moles/Vol] 138 mmol/L Normal 134-146 [facility] Comment on above: Performed By: #### C SINDY, CMP, 10348-7, 08562-6 #### [facility] ([id number]) [address] [place] [address] 40560 Urea nitrogen [Mass/Vol] 11 mg/dL Normal 5-23 [facility] Comment on above: Performed By: #### C WARD CALLAHAN, 57916-2, 15224-4 #### [facility] ([id number]) [address] [place] [address] 78660 HCG ( test) Ql (U)o n 11-16-2023 Beta HCG ( test) Ql (U) Negative Normal NEG [facility] Comment on above: Performed By: #### 2 106-3 #### [facility] ([id number]) [address] [place] [address] 50038 Lactate (P reyes) [Moles/Vol]o n 11-16-2023 LACTATE W/REFLEX 1.4 mmol/L Normal 0.4-2.0 [facility] Comment on above: Result Comment: Result did not trigger repeat Lactate, re-order if needed. Performed By: #### C SINDY, CMP, 51841-7, 57174-5 #### [facility] ([id number]) [address] [place] [address] 97864 MAGNESIUMon 11-16-2023 Magnesium [Mass/Vol] 2.1 mg/dL Normal 1.8-2.6 [facility] Comment on above: Performed By: #### C BCA, CMP, 38889-0, 60107-1 #### [facility] ([id number]) [address] [place] [address] [place] [address] URN MACROSCOPIC NURon 2023 BILIRUBIN ELZA Small Abnormal NEG [facility] Comment on above: Performed By: #### N UM #### [facility] ([id number]) [address] [place] [address] [place] [address] BLOOD/HGB ELZA Large Abnormal NEG [facility] Comment on above: Performed By: #### N UM #### [facility] ([id number]) [address] [place] [address] [place] [address] GLUCOSE ELZA Negative Normal NEG [facility] Comment on above: Performed By: #### N UM #### [facility] ([id number]) [address] [place] [address] [place] [address] KETONES ELZA Trace Abnormal NEG [facility] Comment on above: Performed By: #### N UM #### [facility] ([id number]) [address] [place] [address] [place] [address] LEUKOCYTE ESTERASE ELZA Negative Normal NEG [facility] Comment on above: Performed By: #### N UM #### [facility] ([id number]) [address] [place] [address] [place] [address] NITRITE ELZA Negative Normal NEG [facility] Comment on above: Performed By: #### N UM #### [facility] ([id number]) [address] [place] [address] 26889 PH ELZA 5.5 Normal 5.0-8.5 [facility] Comment on above: Performed By: #### N UM #### [facility] ([id number]) [address] [place] [address] 09844 PROTEIN ELZA Trace Abnormal NEG [facility] Comment on above: Performed By: #### N UM #### [facility] ([id number]) [address] [place] [address], [place] [address] SPECIFIC GRAVITY ELZA >=1.030 Normal 1.003-1.035 [facility] Comment on above: Performed By: #### N UM #### [facility] ([id number]) [address] [place] [address], [place] [address] UROBILINOGEN ELZA 0.2 eu/dL Normal <1.1 [facility] Comment on above: Performed By: #### N UM #### [facility] ([id number]) [address] [place] [address], [place] [address] POCT EKGon 09-14-2023 [facility] Coding Summary.on 08-25-2022 Coding Summary. CD:[id number] Ww+P GhlYWQ+XG7JLDAfQ34ccJMcn Q7qV0YVBLnHOssoARZAGGkSN bPxadHkJJ1mnDNeOTNz IC8+ER5aTBApUynqgFDug3R0 wPK2M48diq6cIXlsqAP0VQNw FpGfythln0nceQk1YKltOscm OyBt AZIqdN15CSO0jO10Du45pXJm oMPku5ofrJv3OnMjVHOmFLS4 iNhiNVicy8UlRGHxN10waUNb c2U6 YLUfrRwfkVZaXlBlsOH2eZ6h NRqwekuvn3lxqapsLzv8hy40 wTYkb5P6vIU1D3ZkszY0NMZo bGQg WtwitKFJdU7syzfub2szszhl QjZbZOWtEUl2GId0SGZupBgn CvFdNA98XEQ8VOEsicFpR6If LWFs cYkmYbR8g0N7As4LJ8YYWixn M4BFXKJEBHqelZU+YO18up54 S3RhRotpMdn1MEBfILH3dGU4 aD0n VDXkGLlfb3R1eBX6C3TvuiOf kp4ea2cnTIQrTCqtO15udEDx s9U7MSHatQY6WJBzzDyqTqEt aG93 Oyc+HEWhpRbfi2QnCgkdh8pz f5chcDi0EllzDFHqttBixDyq FMF8i6QvWq6iDZKhyKR9vRF8 aD0i XiHqIeX0KHfxM572PkTbqXNn RpldY36mY2PawDA+PHRyPjx0 IDGgoXqcSA7oS7CgIBNausax bGVm lVrzKO5nRPKalqevGTRenB5m UQDzI2g0HtPxRpC0EYstT4At LGPrlmahRw68qZ3nKfXfLiD3 MGlu I9RykiA3NTBxlPQtCZgpMBJ5 J77ub9H9YCKtNSNhWXA0gIA9 rI3skYtbfdxkcAOlhNawbbLr dGlj UBnjTJmuV317OEVodNgsIeHs ZGluZyBEYXRlOiAgMDUvMDUv MjAyMzwvdGQ+EELbIGR8aPca PSAn gLZyCZnxSy9wrQqerJjsSH5b WTDwufjuMKLzmQ5hDMAvcNSc fKwpCP3bIOBqinngd605EmNp MHB0 JLIfaUPwG9NncI5rWjBuQZNo BHVlJ6JguNTvCLgyZ832TZqw OzY1NGOnowNyR8RjZZJxoWjk OiB0 i3P0Ii6Za0SvdlsaX9GhfBAf IvAdOctxRPu8V3XnOzjbyTM+ QS83MDXiQS81HMh2BIU4qRbz PSdi SNQqN6SzwD6rBvApFUEmRVJr Oyc+PHRhYmxlIHdpZHRoPScx AXZvBhGoeDcjHA8uCm7eGRCa LWNv xDjwvUPqSrXkh2xuJDZjOLhl EP8wdRalN5DeqGZ0WNFaz0l1 Hu19W83vH6UkzIA+PGNvbCB3 aWR0 dT5vCuUzVrI1XTamI756HxNh rLDiXzbml9rvv0spaGl3QgB8 MPCbmzAhtKgeHQD1x0JxOv65 Y29s IHdpZHRoPSIxNSUiIHZhbGln uu2xsT2vLb1+BTXhcPJ7yFE9 oW0iDgAaZsC0TOqbE225VeCe cCIv Cacga3ejr5zbsGw4CgKdLKIc keHohHulGCZ7j9WyMu87E9Yn wIrcx4CzZqc2hs72kYYhv3P1 bGU9 F1HwCRGvudexoRJqdPfeGX1s YINywpqfSDSkuD1fWTVcX1m1 UaVjPgO1RPvhX6YytmV3CPSb bGQg DREnlIXThF9pkxpbx0rlfuue BdIhZMHqSEu7BZi8ARDhmMwv QqYrNKJ1LcT1RAF2iTQkfG1y bGln hmdezJ9sJkk+PWF6rBEjpAFQ SN2sYciezNA+IJNwDXR4mUot CZieZCGgvE8tSDNlG3k6CuFp LjA1 VTdaT9GfpxQ3RAXxvDClCNXd wRCIjU3pcsmje1dmakrcByEc VIKhHHt7CAg5MLYgfElvSvHa ZWZ0 KyE9BHP7wDYxcT6poKgpytsc eJ3oZqv+TewixDvjBWG7TTf3 Z3VrJlm8ZNPwqJgdXG9lfDNe ZGlu Vg1hhLrruRiaYZ5kCCVrjfwx p250LjSbr3ceQEHwhFTsSOyf APV5H84hs2X3NFWcVRTvRTZ6 dGV4 hX1rbYhqcfmyjTJjlVttzvRy cKebLWtnSEfpQ247ABSepAuc UaXtNZx2T8KwCby6TIXexPpg ZT0n sSRuCVtbFz2vdJwurFbwNJ7u JISheecvt358IeEgb1qoXQRe lHLdMIbzPEZ9O60fw5C7DBHw MDAw YFY4cLB1bX0zfKhblnqmkYMd yJmqwiZedKdwBVaqERocL294 JDXzyHwzOnNszWl5A2LpGax6 ZCBz vAeeLH0zsACfGCkgYh0soJzg jYquCC6mSFKgmnmxu325RnTd f0mgICTrlNKbBErrQBS3E88q b3I6 TYCaVBToTPF6oXF1wE7caTry bjogbGVmdDsgdmVydGljYWwt BHnwT054QJNakSyrAeNurXuz bnQg VSjnWUn7X1TyGoefaVN+PC90 AVIjJX42dSHkvCYbh5kfdUb7 YkPbZUYxCFK8xCwgVRmpm0Tv ZXIt Q78jnIJcf8N0HBWqtCnzcZOg NpDqrMR7jC9eFBcnjgikg4jw kuqmAehel6bogb41aA61Z45p IHdp UVLuVTMmQNQwAPAorQgute2s gV2bTp4+BZOhwTA6iVQ7xT6b LYNjNdK9FSakO500ZeDyxLXi Pjxj t4osc8punDp8JvI6SJAfbwEk dEztZIC6y7BwXo24S50bHIom GJCaTRScGAQaAYXhqEpdtc1a dG9w Ii8+WAYhsTL1yTZ5dE8rVwXb BzI7TVbzC923HuNglGRjNuzk U18dI7OgiNH+KBMlUfk2IYRp dHls TM4dnLMrOOwbDd6nSSO1BgKf UtFiPHigH9OjUGTixagwpphp xOS4XFPmILIrdG78Gl9kgDqg MTBw hDHFgB6flluyu4azwisnRgKd WKNyWKq2OGy0EBQpmWfkVbIq HKF2ZaI8FLS0eBGdpG1iuGqa bjog vE6yF6YiCPBskpnbIo95fQ3f TxSdFcQ1YLjgMvi+TR2BR0HS K8DPJa4cRUsAT8H7L7FcXaa0 ZCBz mUyoVU6fnTUvKWojXr0ahDdu cCgeVM7bDHVjxbrbGOCqvW7d COUofHPkdUwqIX1aIHKjtscb b250 LzUgGUN0WRYmcWPxU5AtvL7a AnBvGESqCIVqP1KjxIGnMMcb A447EOykPkS6OUFdgjNqI6Ur LWFs qGewVzD4c1W2Tt6cFL9hJk0a UUm5PG37VE34bLLal7O9dCD7 D0TbSTApwfkeoospmOH0FBJy MDUw rP48sZRaPExyEl5mf3Q7u889 DGOpLCLtqD18Hh1dsKoyWGQw qIIBjQ8qvqlzb1zrnfcsSiUa MDAw YQf8JBp1HXNfaSouYaNkTDK8 XsS2MNX9oZJzuX3wnTyxkqkf rX4lFun+NGSqCZYdvbW7H1Qc Pjx0 XSIulIogCV9kjWPoRDvjBc8v dWumzPwbMT7wYWHaofcpHJBz dW6oASHsuHWvoGpiYD6fILMc bjtm p139UmPoOLR5JUWlhICtD6Xj dJ7qJxLlKQAxFLCvW7MqsKQa YMdfF548WYzpGoP5JXXgdbOv Y2Fs LRFtkIsdCsE9r8D8Um9RLZ8w gKN3S2EdRnu0ATGnyFyfUJ0m tVJgPMbqIc6zuRkhzKivZE8w NTBp tktrANGttE2hJMFpzEPogLoa TM6rVPGuglrar364TqUrYYV2 QKFlnQEtV7FafI8kMhHzECQz MDAw X3IvhBRyBAauF372CWsmUfG7 HOBmmdNjK9AsLSRgiBapVdO7 e2L7Yw0AkBLcDBTmOX59FB63 ZD48 H3UnKtibdYQluOZ+PHRhYmxl IHdpZHRoPScxMDAlJyBzdHls CT2nWe0qRMOzSSTjcSplhFXx OiBj s6haEVYfRFliUO4zuFlxV7Ty uKL2AMGqz8b3Fz61I46xF4Or dXA+YEUypCU9yIU1mU1yXtWp IiB2 CKqaD051JoWxkFBmPevfg0hy k5qajGl8UuLrOECxzaFmhNqt HDV5n8KcUw85D97pRLojURHk PSIy FLZaRXHsjQyktd1huH4oNp5+ ISUmqFK6wRV7tP5zJjZaUaF2 OMjqK989CsCxiZNpByfgG49o Z3Jv dXA+OBUlQqf1JOFzuDdcOQ2x gNUtOQnzKt1iKNH1RjSyRsLi RKhuE0UbDGBiphdfxlrpkSX0 IDAu LOIixA04Ab5ogEqmEl4tAQFk DPJ9LQIfxBYoU9FwpW1jDsIj ESMaSLJaE1KxvUKpVDaqY254 IGxl FnK9OLFhgtFfA5NbKUAqtAmb VoL0y0X9Sa4VwJvyjCFgIX7a FgHiKYt5W1FcCjb9KFBzhFmw ZT0n pNQdHRsmSi4qpZonsHpfOD8u PWQtyuwuf361UoPfh9cvYLJs dAVrJXezUFP2W03oe5P5WQOf MDAw MEU7sOT0uT7wkDkudgillZSs wTeirgNnzGjzRPvcZUuiM700 FRDbcBdbXeSNLxj7Q6JaPij6 ZCBz kZxuRW8qrPLjTGzlUt5blEfu oSsmGR7bCEYrltexa945ZxPm y5qkJXAyjBLjKXtqDPI2O01g b3I6 YDXhWMDcVQN6aZW0cJ4hvByo bjogbGVmdDsgdmVydGljYWwt HPzmO851IZSyoOxvQh2WEua9 L3Rk Ssh4YHWoxQivPH0twCUyKVll Av7tqMfrwYklGF3cBFFjlhts q269WtBbm7hjEEAbjASrRNzy ZXM7 N81bz8M9PZOfUZKpBBN8vGM2 fO3qvFwffjpnqKNleUugvmBa hTclLCfmODvdD088OBBlgFbn PlBh eWVyOjwvdGQ+ES49rb16V6Nf InywOey4DLFvUTZ6xKR3lZ4h KTLwRUkst3X0xKV7E5UzyySt ci1j c3abVTYj (more content not included)... Normal [facility] CT Maxillofacial w/o Contras ton 08-22-2022 CT Maxillofacial w/o Contrast Exam Date/Time: 08/21/2022 07:06 EDT Reason for Exam: J32.4 Report IMPRESSION: NO EVIDENCE OF ANY SIGNIFICANT SINUSITIS. EXAM: CT Maxillofacial w/o Contrast CLINICAL HISTORY: Headache J32.4 COMPARISON: NONE. TECHNIQUE: Unenhanced images were obtained through the paranasal sinuses in the axial plane with coronal and sagittal reformats. FINDINGS: Maxillary sinuses:Tiny retention cyst or polyp in the floor the right maxillary sinus. Minimal mucosal thickening along the floor and lateral wall of the left maxillary sinus. Sinus outflow tracts are patent. Ethmoid sinuses: Ethmoid sinuses are clear. Sphenoid sinuses: The sphenoid sinuses are normally aerated. Sphenoethmoid recesses are patent. Frontal sinuses: The frontal sinuses are normally aerated. Frontal recesses are patent. Nasal fossa: Minimal gentle septal deviation toward the left. All CT scans at this facility use dose modulation, iterative reconstruction, and/or weight based dosing when appropriate to reduce radiation dose to as low as reasonably achievable. Ordering Provider: Shelby Mckinley FINAL REPORT Dictated: 08/22/2022 10:43 am Bladimir Van MD Signed (Electronic Signature): 08/22/2022 10:43 am Signed by: Bladimir Van MD Transcribed by: CHRISTINE Technologist: YURI [facility] Consent for Treatmenton Consent for Treatment [id number]: 127 [facility] Physician Orderon 08-16-2022 Physician Order [id number]: 127 [facility] Physician Orderon 07-24-2022 Physician Order [id number]: 127 [facility] DIGITAL MAMMOGRAM SCREENING BILATERALon 04-28-2020 DIGITAL MAMMOGRAM SCREENING BILATERAL [facility] Department of Radiology [address] [place] [id number] == Patient Name: ANDREE FLANNERY : 1975 Sex: F Age: Race: White Pt. Location: [facility] Patient Status: D Ordered Date: 03/30/2020 1:15:00 PM Completed Date: 04/28/2020 12:33 PM Requesting Provider: EDIN PARSONS Attending Provider: Report Copy To: Signs & Symptoms: Z12.31 [facility] screen mammogram for malignant neoplasm of breast I10 History: [place] previous study [facility] Comments: , Additional imaging, if necessary?: Y Exam: DIGITAL MAMMOGRAM SCREENING BILATERAL == SIGNS AND SYMPTOMS: Z12.31 [facility] screen mammogram for malignant neoplasm of breast I10 TECHNOLOGIST COMMENTS: Previous mammogram [facility] QUESTION FOR THE RADIOLOGIST: , Additional imaging, if necessary?: Y CAD STATEMENT: Two standard digital views of both breasts were performed and reviewed with the aid of CAD R2 version 1. 2.0.0.27. RISK FACTORS: Family: Weak family history of breast cancer (Maternal Grandmother,0) PRIOR PROCEDURE: COMPARISON: FINDINGS: The breasts are heterogeneously dense, which may obscure small masses. No suspicious masses, microcalcifications, or areas of architectural distortion are identified. ASSESSMENT: BI-RADS-1 Negative RECOMMENDATION: If the patient's physical exam remains unchanged, annual routine screening mammography is recommended. Electronically signed: Antonio Ramirez. Transcribed by: [email or web address], User Resident: Electronically Signed by: ANTONIO RAMIREZ @ 05/03/2020 02:25 PM Normal [facility] Comment on above: Order Comment: , Add itional imaging, if necessary?: Y CBC W/DIFFon 04-05-2020 ABS IMM GRANS 0.0 10*3/uL Normal 0.0-0.2 [facility] Comment on above: Performed By: #### 5 0103 #### [facility] [address] [place] [address], [facility] ABS NEUTROPHILS 3.3 10*3/uL Normal 1.6-7.6 [facility] Comment on above: Performed By: #### 5 0103 #### [facility] [address] [facility] [place] [address], [place] Basophils (Bld) [#/Vol] 0.0 10*3/uL Normal 0.0-0.2 [facility] Comment on above: Performed By: #### 5 0103 #### [facility] [address] [place] [address], [facility] Basophils/100 WBC (Bld) 0.6 % Normal 0.0-1.0 [facility] Comment on above: Performed By: #### 5 0103 #### [facility] [address] [facility] [place] [address], [facility] Eosinophils (Bld) [#/Vol] 0.0 10*3/uL Normal 0.0-0.5 [facility] Comment on above: Performed By: #### 5 0103 #### [facility] [address] [facility] [place] [address], [facility] Eosinophils/100 WBC (Bld) 0.2 % Normal 0.0-6.0 [facility] Comment on above: Performed By: #### 5 0103 #### [facility] [address] Erythrocyte distribution width (RBC) [Ratio] 12.3 % Normal 11.5-15.0 [facility] Comment on above: Performed By: #### 5 0103 #### [facility] [address] [facility] [address] Hematocrit (Bld) [Volume fraction] 40.3 % Normal 36.0-45.0 [facility] Comment on above: Performed By: #### 5 0103 #### [facility] [address] [facility] [place] [address], [facility] Hemoglobin (Bld) [Mass/Vol] 13.7 g/dL Normal 12.0-15.0 [facility] Comment on above: Performed By: #### 5 3 #### [facility] [address] [place] [address], [facility] IMMATURE GRANS 0.4 % Normal 0.0-1.0 [facility] Comment on above: Performed By: #### 5 0103 #### [facility] [address] [facility] [place] [address], [facility] Lymphocytes (Bld) [#/Vol] 1.3 10*3/uL Normal 1.2-4.0 [facility] Comment on above: Performed By: #### 5 0103 #### [facility] [address] [facility] [place] [address], [facility] Lymphocytes/100 WBC (Bld) 25.8 % Normal 20.0-45.0 [facility] Comment on above: Performed By: #### 5 0103 #### [facility] [address] [facility] [address] MCH (RBC) [Entitic mass] 31.2 pg Normal 27.0-33.0 [facility] Comment on above: Performed By: #### 5 0103 #### [facility] [address] [facility] [address] MCHC (RBC) [Mass/Vol] 34.0 g/dL Normal 32.0-35.0 [facility] Comment on above: Performed By: #### 5 0103 #### [facility] [address] [facility] [place] [place] [address], [facility] MCV (RBC) [Entitic vol] 91.8 fL Normal 82.0-98.0 [facility] Comment on above: Performed By: #### 5 0103 #### [facility] [address] [facility] [place] [address], [facility] Monocytes (Bld) [#/Vol] 0.3 10*3/uL Normal 0.1-1.0 [facility] Comment on above: Performed By: #### 5 3 #### [facility] [address] [facility] [place] [address], [place] MONOS 5.9 % Normal 5.0-12.0 [facility] Comment on above: Performed By: #### 5 0103 #### [facility] [address] [facility] [place] [address], [facility] Neutrophils/100 WBC (Bld) 67.1 % Normal 40.0-72.0 [facility] Comment on above: Performed By: #### 5 0103 #### [facility] [address] [facility] [place] [address], [facility] Nucleated RBC/100 WBC (Bld) [Ratio] 0 % Normal 0-0 [facility] Comment on above: Performed By: #### 5 0103 #### [facility] [address] [facility] [place] [address], [facility] PLAT CNT 321 10*3/uL Normal 150-400 [facility] Comment on above: Performed By: #### 5 0103 #### [facility] [address] [facility] [place] [address], [facility] RBC (Bld) [#/Vol] 4.39 10*6/uL Normal 3.80-5.[address] [facility] Comment on above: Performed By: #### 5 0103 #### [facility] [address] [facility] [place] [address], [facility] WBC (Bld) [#/Vol] 4.93 10*3/uL Normal 4.00-10.[address] [facility] Comment on above: Performed By: #### 5 0103 #### [facility] [address] [facility] [place] [address], [facility] COMP METABOLIC PANELon 04-05 Albumin [Mass/Vol] 4.5 g/dL Normal 3.5-5.7 [facility] Comment on above: Performed By: #### 3 1569, [id number] #### [facility] [address] [place] [address], [place] ALKALINE PHOSPH 56 IU/L Normal 34-104 [facility] Comment on above: Performed By: #### 3 1568, [id number] #### [facility] [address] [place] [address], [place] ALT [Catalytic activity/Vol] 8 U/L Normal 7-52 [facility] Comment on above: Performed By: #### 3 1568, 72447 #### [facility] [address] [place] [address], [place] AST [Catalytic activity/Vol] 11 U/L Low 13-39 [facility] Comment on above: Performed By: #### 3 1568, [id number] #### [facility] [address] [place] [address], [place] Bilirubin [Mass/Vol] 0.3 mg/dL Normal 0.3-1.0 [facility] Comment on above: Performed By: #### 3 1568, 14180 #### [facility] [address] [place] [address], [place] Calcium [Mass/Vol] 9.2 mg/dL Normal 8.6-10.3 [facility] Comment on above: Performed By: #### 3 1568, [id number] #### [facility] [address] [place] [address], [place] Chloride [Moles/Vol] 106 mmol/L Normal 98-107 [facility] Comment on above: Performed By: #### 3 1568, 40495 #### [facility] [address] [place] [address], [place] CO2 [Moles/Vol] 23 mmol/L Normal 21-31 [facility] Comment on above: Performed By: #### 3 1568, 07847 #### [facility] [address] [place] [address], [place] Creatinine [Mass/Vol] 0.89 mg/dL Normal 0.60-1.20 [facility] Comment on above: Performed By: #### 3 156, [id number] #### [facility] [address] [place] [address], [place] GFR/1.73 sq M.predicted among blacks MDRD (S/P/Bld) [Vol rate/Area] mL/min/{1.73_m2} Normal >60 [facility] Comment on above: Performed By: #### 3 156, 01259 #### [facility] [address] [place] [address], [place] GFR/1.73 sq M.predicted among non-blacks MDRD (S/P/Bld) [Vol rate/Area] mL/min/{1.73_m2} Normal >60 [facility] Comment on above: Performed By: #### 3 1568, 23365 #### [facility] [address] [place] [address], [place] Glucose [Mass/Vol] 93 mg/dL Normal 70-100 [facility] Comment on above: Performed By: #### 3 1568, 27981 #### [facility] [address] [place] [address], [place] Potassium [Moles/Vol] 3.4 mmol/L Low 3.5-5.1 [facility] Comment on above: Performed By: #### 3 1568, 96482 #### [facility] [address] [place] [address], [place] Protein [Mass/Vol] 7.2 g/dL Normal 6.0-8.3 [facility] Comment on above: Performed By: #### 3 1568, 70067 #### [facility] [address] [place] [address], [place] Sodium [Moles/Vol] 138 mmol/L Normal 136-145 [facility] Comment on above: Performed By: #### 3 156, [id number] #### [facility] [address] [facility] [place] [address], [facility] Urea nitrogen [Mass/Vol] 12 mg/dL Normal 7-25 [facility] Comment on above: Performed By: #### 3 1569, 03377 #### [facility] [address] [place], [place] [id number] [place] [address] TSH3 WITH REFLEX FT4on 04-05 TSH 3RD GENERATION 2.37 uIU/mL Normal 0.34-5.60 [facility] Comment on above: Performed By: #### [id number] #### [facility] [address] [place], [place] [id number] [place] [address] PELVIS 1 OR 2 VWSon 01-12-20 PELVIS 1 OR 2 S [facility] Department of Radiology [address] [place] [address] == Patient Name: ANDREE FLANNERY : 1975 Sex: F Age: Race: White Pt. Location: [facility] Patient Status: E Ordered Date: 01/12/2020 10:10:00 AM Completed Date: 01/12/2020 10:34 AM Requesting Provider: RORY FRENCH Attending Provider: HUBERT GAYTAN Report Copy To: Signs & Symptoms: Pain History: Comments: Evaluate for FX Exam: PELVIS 1 OR 2 VWS == PELVIS 1 OR 2 VWS 01/12/2020 10:34 AM CLINICAL INDICATIONS: Pain TECHNOLOGIST COMMENTS: low back, pelvic, sacral, and left hip pain status post fall QUESTION FOR THE RADIOLOGIST: Evaluate for FX PROTOCOL: AP(PA) view was obtained. COMPARISON: None. FINDINGS: No evidence of an acute fracture or dislocation. Joints are intact. IMPRESSION: No radiographic evidence of an acute fracture or dislocation. Approved by:Alvaro Pantoja01/12/2020 10:45 AM. I, Janes Jean Baptiste,have reviewed the images and reports Electronically signed: Janes Jean Baptiste. Transcribed by: [email or web address], User Resident: ALVARO BECKETT Electronically Signed by: JANES JEAN BAPTISTE @ 01/12/2020 10:48 AM I personally read this/these film(s) with this resident Normal [facility] Comment on above: Order Comment: Evalu ate for FX SACRUM COCCYXon 01-12-2020 SACRUM COCCYX [facility] Department of Radiology [address] [place] [id number] == Patient Name: ANDREE FLANNERY : 1975 Sex: F Age: Race: White Pt. Location: [facility] Patient Status: E Ordered Date: 01/12/2020 10:10:00 AM Completed Date: 01/12/2020 10:34 AM Requesting Provider: RORY FRENCH Attending Provider: HUBERT GAYTAN Report Copy To: Signs & Symptoms: Back Pain History: Comments: Evaluate for Fx Exam: SACRUM COCCYX == SACRUM COCCYX 01/12/2020 10:34 AM CLINICAL INDICATIONS: Back Pain TECHNOLOGIST COMMENTS: low back, pelvic, sacral, and left hip pain status post fall QUESTION FOR THE RADIOLOGIST: Evaluate for Fx PROTOCOLS: AP(PA) and Lateral views were obtained. COMPARISON: None FINDINGS: AP sacrum, AP coccyx, and lateral radiographs of the sacrum and coccyx obtained. No evidence for an acute fracture the sacrum and coccyx. Postoperative changes noted at the lumbosacral junction. IMPRESSION: No evidence for an acute fracture of the sacrum or coccyx. Electronically signed: Janes Jean Baptiste. Transcribed by: [email or web address], User Resident: Electronically Signed by: JANES JEAN BAPTISTE @ 01/12/2020 10:47 AM [place] [facility] Comment on above: Order Comment: Evalu ate for Fx Vital Signs Date Time Vital Sign Value Performing Clinician Faci lity 07-31-2024 11:20-0400 Body height 165.1 cm Prosper Waters MD Work Phone: [facility] 07-31-2024 11:20-0400 Body mass index (BMI) [Ratio] 25.46 kg/m2 Prosper Waters MD Work Phone: [facility] 07-31-2024 11:20-0400 Body weight 69.4 kg Prosper Waters MD Work Phone: [facility] 07-31-2024 11:20-0400 Diastolic blood pressure 78 mm[Hg] Prosper Waters MD Work Phone: [facility] 07-31-2024 11:20-0400 Systolic blood pressure 116 mm[Hg] Prosper Waters MD Work Phone: [facility] 07-01-2024 16:49-0400 Body height 165.1 cm Amairani Richardson DO Work Phone: [facility] 07-01-2024 16:49-0400 Body mass index (BMI) [Ratio] 24.73 kg/m2 Amairani Richardson DO Work Phone: [facility] 07-01-2024 16:49-0400 Body weight 67.41 kg Amairani Debra DO Work Phone: [facility] 07-01-2024 16:49-0400 Diastolic blood pressure 70 mm[Hg] Amairani Debra DO Work Phone: [facility] 07-01-2024 16:49-0400 Heart rate 74 /min Amairani Debra DO Work Phone: [facility] 07-01-2024 16:49-0400 SaO2% (BldA) [Mass fraction] 100 % Amairani Debra DO Work Phone: [facility] 07-01-2024 16:49-0400 Systolic blood pressure 108 mm[Hg] Amairani Debra DO Work Phone: [facility] 06-30-2024 11:20-0400 Body height 165.1 cm Prosper Waters MD Work Phone: [facility] 06-30-2024 11:20-0400 Body mass index (BMI) [Ratio] 24.43 kg/m2 Prosper Waters MD Work Phone: [facility] 06-30-2024 11:20-0400 Body weight 66.59 kg Prosper Waters MD Work Phone: [facility] 06-30-2024 11:20-0400 Diastolic blood pressure 80 mm[Hg] Prosper Waters MD Work Phone: [facility] 06-30-2024 11:20-0400 Systolic blood pressure 110 mm[Hg] Prosper Waters MD Work Phone: [facility] 06-13-2024 10:41-0500 Diastolic blood pressure 91 mm[Hg] Bph 2 [facility] 06-13-2024 10:41-0500 Systolic blood pressure 136 mm[Hg] Bph 2 [facility] 06-13-2024 10:05-0500 Body height 165.5 cm Bph 2 [facility] 06-13-2024 10:05-0500 Body mass index (BMI) [Ratio] 23.88 kg/m2 Bph 2 [facility] 06-13-2024 10:05-0500 Body temperature 96.3 [degF] Bph 2 [facility] 06-13-2024 10:05-0500 Body weight 65.4 kg Bph 2 [facility] 06-13-2024 10:05-0500 Heart rate 63 /min Bph 2 [facility] 06-13-2024 10:05-0500 Respiratory rate 18 /min Bph 2 [facility] 06-13-2024 10:05-0500 SaO2% (BldA) [Mass fraction] 100 % Bph 2 [facility] 05-26-2024 09:46-0500 Body height 165.1 cm Prosper Waters MD Work Phone: [facility] 05-26-2024 09:46-0500 Body mass index (BMI) [Ratio] 25.83 kg/m2 Prospre Waters MD Work Phone: [facility] 05-26-2024 09:46-0500 Body weight 70.4 kg Prosper Waters MD Work Phone: [facility] 05-26-2024 09:46-0500 Diastolic blood pressure 100 mm[Hg] Prosper Waters MD Work Phone: [facility] 05-26-2024 09:46-0500 Systolic blood pressure 144 mm[Hg] Prosper Waters MD Work Phone: [facility] 05-22-2024 10:01-0500 Body height 165.1 cm Paulo Shin DO Work Phone: [facility] 05-22-2024 10:01-0500 Body mass index (BMI) [Ratio] 25.83 kg/m2 Paulo Shin DO Work Phone: [facility] 05-22-2024 10:01-0500 Body weight 70.4 kg Paulo Shin DO Work Phone: [facility] 05-22-2024 10:01-0500 Diastolic blood pressure 60 mm[Hg] Paulo Shin DO Work Phone: [facility] 05-22-2024 10:01-0500 Systolic blood pressure 110 mm[Hg] Paulo Shin DO Work Phone: [facility] 04-04-2024 10:59-0500 Body height 165.1 cm Andree Krotzer [employer] Work Phone: [facility] 04-04-2024 10:59-0500 Body mass index (BMI) [Ratio] 26.53 kg/m2 Andree Krotzer [employer] Work Phone: [facility] 04-04-2024 10:59-0500 Body weight 72.3 kg Andree Krotzer [employer] Work Phone: [facility] 04-04-2024 10:59-0500 Diastolic blood pressure 74 mm[Hg] Andree Krotzer [employer] Work Phone: [facility] 04-04-2024 10:59-0500 Systolic blood pressure 118 mm[Hg] Andree Krotzer [employer] Work Phone: [facility] 02-08-2024 14:33-0400 Body height 165.1 cm Remigio Hudson MD Work Phone: [facility] 02-08-2024 14:33-0400 Body mass index (BMI) [Ratio] 26.29 kg/m2 Remigio Hudson MD Work Phone: [facility] 02-08-2024 14:33-0400 Body weight 71.67 kg Remigio Hudson MD Work Phone: [facility] 02-08-2024 14:33-0400 Diastolic blood pressure 82 mm[Hg] Remigio Hudson MD Work Phone: [facility] 02-08-2024 14:33-0400 Heart rate 77 /min Remigio Hudson MD Work Phone: [facility] 02-08-2024 14:33-0400 SaO2% (BldA) [Mass fraction] 98 % Remigio Hudson MD Work Phone: [facility] 02-08-2024 14:33-0400 Systolic blood pressure 124 mm[Hg] Remigio Hudson MD Work Phone: [facility] 09-14-2023 12:55-0400 Body height 165.1 cm Laurie Fitch MD Work Phone: [facility] 09-14-2023 12:55-0400 Body mass index (BMI) [Ratio] 26.96 kg/m2 Laurie Fitch MD Work Phone: [facility] 09-14-2023 12:55-0400 Body weight 73.48 kg Laurie Fitch MD Work Phone: [facility] 09-14-2023 12:55-0400 Diastolic blood pressure 80 mm[Hg] Laurie Fitch MD Work Phone: [facility] 09-14-2023 12:55-0400 Heart rate 107 /min Laurie Fitch MD Work Phone: [facility] 09-14-2023 12:55-0400 SaO2% (BldA) [Mass fraction] 96 % Laurie Fitch MD Work Phone: [facility] 09-14-2023 12:55-0400 Systolic blood pressure 124 mm[Hg] Laurie Fitch MD Work Phone: [facility] 07-06-2023 10:17-0400 Body height 165.1 cm Laurie Fitch MD Work Phone: [facility] 07-06-2023 10:17-0400 Body mass index (BMI) [Ratio] 27.52 kg/m2 Laurie Fitch MD Work Phone: [facility] 07-06-2023 10:17-0400 Body weight 75.03 kg Laurie Fitch MD Work Phone: [facility] 07-06-2023 10:17-0400 Diastolic blood pressure 88 mm[Hg] Laurie Fitch MD Work Phone: [facility] 07-06-2023 10:17-0400 Heart rate 105 /min Laurie Fitch MD Work Phone: [facility] 07-06-2023 10:17-0400 SaO2% (BldA) [Mass fraction] 99 % Laurie Fitch MD Work Phone: [facility] 07-06-2023 10:17-0400 Systolic blood pressure 122 mm[Hg] Laurie Fitch MD Work Phone: [facility] Encounters Encounter Date Encounter Type Care Provider Facility Start: 10-02-2024 End: 10-02-2024 Emergency department patient visit [facility] Start: 07-31-2024 End: 07-31-2024 Postop follow up visit related to original px Prosper Waters MD Work Phone: [facility] Comment on above: Postoperative examin ation (Primary Dx) Start: 07-31-2024 End: 07-31-2024 ambulatory PROSPER WATERS [facility] Start: 07-29-2024 End: 07-30-2024 Refill Laurie Fitch MD Work Phone: [facility] Comment on above: Med Refill Start: 07-24-2024 End: 07-24-2024 ambulatory AMAIRANI RICHARDSON [facility] Start: 07-01-2024 End: 07-01-2024 Office consultation new/estab patient 60 min Amairani Richardson DO Work Phone: [facility] Comment on above: Migraine without aur a and without status migrainosus, not intractable (CMS/HCC) (Primary Dx); Abnormal brain MRI; Dizziness; Nausea and vomiting, unspecified vomiting type Start: 07-01-2024 End: 07-01-2024 ambulatory AMAIRANI RICHARDSON Not Available Start: 07-01-2024 End: 07-01-2024 Bamboo flowsheet Amairani Richardson DO Work Phone: [facility] Start: 07-01-2024 End: 07-01-2024 Bamboo flowsheet Amairani Richardson DO Work Phone: [facility] Start: 06-30-2024 End: 06-30-2024 Postop follow up visit related to original px Prosper Waters MD Work Phone: [facility] Comment on above: Postoperative examin ation (Primary Dx) Start: 06-30-2024 End: 06-30-2024 ambulatory PROSPER [facility] Start: 06-21-2024 End: 06-21-2024 Telephone encounter Joann Morrissey [facility] Any khan Comment on above: Sore Throat; Vomitin g; trouble swallowing Start: 06-20-2024 End: 06-20-2024 Evaluation and management of inpatient KENNETH Eli GUTIERREZ [facility] Start: 06-20-2024 End: 06-20-2024 [facility] Start: 06-13-2024 End: 06-13-2024 Patient encounter procedure [facility] Pre-Admission Testing 2 [facility] -Pre Admission Testing Comment on above: Uterine leiomyoma, u nspecified location (Primary Dx) [facility]: [facility] Start: 05-28-2024 End: 05-28-2024 Emergency department patient visit [facility] Start: 05-26-2024 End: 05-26-2024 Office outpatient visit 15 minutes Prosper Waters MD Work Phone: [facility] Comment on above: Menorrhagia with irr egular cycle (Primary Dx); Status post endometrial ablation; Pelvic pain; Dysmenorrhea Start: 05-26-2024 End: 05-26-2024 [facility] Start: 05-22-2024 End: 05-22-2024 Office outpatient visit 15 minutes Paulo Shin DO Work Phone: [facility] Comment on above: Abnormal uterine ble eding due to intramural leiomyoma (Primary Dx); Uterus, adenomyosis; Pelvic pain; Nausea; Status post endometrial ablation; Menorrhagia with irregular cycle; Dysmenorrhea Start: 05-22-2024 End: 05-22-[address] [facility] Start: 05-02-2024 End: 05-02-2024 [facility] Start: 04-04-2024 End: 04-04-2024 Initial preventive medicine new patient 40-64yrs Andree Au [employer] Work Phone: [facility] Comment on above: Well woman exam with routine gynecological exam (Primary Dx); Cervical smear, as part of routine gynecological examination; Standardized adult depression screening tool completed; Pelvic pain; Abnormal uterine bleeding; Hx of ovarian cyst Start: 04-04-2024 End: 04-04-2024 Patient encounter procedure Andree Au [employer] Work Phone: [facility] Start: 04-04-2024 End: 04-04-2024 ambulatory [facility] Gail [facility] Start: 04-04-2024 End: 04-04-2024 Encounter for gynecological examination (general) (routine) without abnormal findings [facility] Gail [facility] Work Phone: Start: 04-04-2024 End: 04-04-2024 ambulatory ZHANG WOODS [facility] Start: 04-04-2024 End: 04-04-2024 ambulatory [facility] Gail LARES [facility] Start: 04-04-2024 Encounter for gynecological examination (general) (routine) without abnormal findings JIMENEZ PA [facility] Start: 02-08-2024 End: 02-08-2024 Office outpatient visit 15 minutes Korey Trujillo MD Work Phone: [facility] Comment on above: Essential hypertensi on, benign (Primary Dx); Palpitations Start: 02-08-2024 End: 02-08-2024 ambulatory REMIGIO HUDSON [facility] Start: 02-07-2024 End: 02-07-2024 Telephone encounter Sol Angel CMA [facility] Start: 01-22-2024 End: 01-22-2024 Emergency department patient visit ZHANG WOODS [facility] Start: 11-21-2023 End: 11-21-2023 ambulatory JESUS Albright [facility] Start: 11-16-2023 End: 11-16-2023 Emergency department patient visit JIMENEZ PA [facility] Start: 09-14-2023 End: 09-14-2023 Office outpatient visit 15 minutes Laurie Fitch MD Work Phone: [facility] Comment on above: Syncope and collapse (Primary Dx); Palpitations; Tachycardia; Primary hypertension Start: 09-13-2023 End: 09-13-2023 Telephone encounter Sol Angel CMA [facility] Start: 08-03-2023 End: 08-03-2023 Telephone encounter Gerry Barger RN [facility] Comment on above: Event Monitor Start: 07-06-2023 End: 07-06-2023 Office outpatient new 45 minutes Laurie Fitch MD Work Phone: [facility] Comment on above: Primary hypertension (Primary Dx); Atypical chest pain; Palpitations; Tachycardia; Syncope and collapse Start: 07-05-2023 Telephone encounter Sol Angel CMA [facility] Start: 06-21-2023 Chart abstracting Scanning Pro vider External [facility] Start: 05-25-2023 Telephone encounter Sol Angel CMA [facility] Start: 05-24-2023 Telephone encounter Valarie Mcclure [facility] Start: 05-18-2023 Telephone encounter Valarie Mcclure [facility] Start: 05-16-2023 Telephone encounter Ana Maria SALGADO [facility] Start: 08-29-2022 End: 08-30-2022 ambulatory JIMENEZ PA Facility:[facility] Start: 08-21-2022 End: 08-22-2022 ambulatory Shelby Mckinley [facility] Start: 10-08-2020 End: 10-08-2020 Emergency department patient visit REFERRED SELF Facility:[facility] Start: 01-12-2020 End: 01-12-2020 Emergency department patient visit HUBERT GAYTAN Facility:[facility] Start: 11-26-2019 End: 11-26-2019 Emergency department patient visit HUBERT GAYTAN Facility:[facility] Procedures Date Procedure Procedure Detail Performing Clinician Start: 06-13-2024 Antibody screen [facility] 2 Start: 06-13-2024 Blood typing serolog ic abo Apollo Johnson MD Work Phone: Start: 06-13-2024 REPEATED ABORH Apollo jiménez MD Work Phone: Start: 04-04-2024 Adult depression screening assessment Andree Rodriguezarnulfo [employer] Work Phone: Start: 04-04-2024 Mammography Amairani Jean prieto DO Work Phone: Start: 04-04-2024 Microscopic observat ion [Identifier] in Cervix by Cyto stain Paulo Shin DO Work Phone: Start: 02-08-2024 Follow-up visit Follow-up REMIGIO HUDSON Start: 09-14-2023 Ecg routine ecg w/le ast 12 lds w/i&r Laurie Fitch MD Work Phone: Start: 04-05-2020 Microscopic observat ion [Identifier] in Cervix by Cyto stain Ana Maria Hobbs [facility] Plan of Treatment Date Care Activity Detail Author Start: 01-29-2033 DTaP,Tdap and Td Vac cines (2 - Td or Tdap) DTaP,Tdap and Td Vaccines (2 - Td or Tdap) [facility] Start: 04-04-2029 Screening for malign ant neoplasm of cervix [facility] Start: 04-04-2027 Screening for malign ant neoplasm of cervix Pap Smear [facility] Start: 07-31-2025 Adult BMI Screening Adult BMI Screen ing [facility] Start: 07-31-2025 Tobacco Screening Tobacco Screening [facility] Start: 07-24-2025 Adult BMI Screening Adult BMI Screen ing [facility] Start: 06-30-2025 Adult BMI Screening Adult BMI Screen ing [facility] Start: 06-30-2025 Tobacco Screening Tobacco Screening [facility] Start: 06-20-2025 Adult BMI Screening Adult BMI Screen ing [facility] Start: 06-20-2025 Tobacco Screening Tobacco Screening [facility] Start: 06-13-2025 Adult BMI Screening Adult BMI Screen ing [facility] Start: 06-13-2025 Tobacco Screening Tobacco Screening [facility] Start: 05-28-2025 Adult BMI Screening Adult BMI Screen ing [facility] Start: 05-28-2025 Tobacco Screening Tobacco Screening [facility] Start: 05-22-2025 Adult BMI Screening Adult BMI Screen ing [facility] Start: 05-22-2025 Tobacco Screening Tobacco Screening [facility] Start: 04-04-2025 Adult BMI Follow Up Plan Adult BMI Follow Up Plan [facility] Start: 04-04-2025 Adult BMI Screening Adult BMI Screen ing [facility] Start: 04-04-2025 Depression Screening Depression Scre ening [facility] Start: 04-04-2025 Screening for malign ant neoplasm of breast Mammogram [facility] Start: 04-04-2025 Tobacco Screening Tobacco Screening [facility] Start: 02-07-2025 Adult BMI Screening Adult BMI Screen ing [facility] Start: 02-07-2025 Tobacco Screening Tobacco Screening [facility] Start: 01-21-2025 Adult BMI Screening Adult BMI Screen ing [facility] Start: 01-21-2025 Tobacco Screening Tobacco Screening [facility] Start: 12-22-2024 Influenza vaccination Influenza Vacc ine [facility] Start: 09-13-2024 Adult BMI Screening Adult BMI Screen ing [facility] Start: 09-13-2024 Tobacco Screening Tobacco Screening [facility] Start: 09-04-2024 End: 09-04-2024 Patient encounter procedure 09/04/2024 3:40 PM EDT Office Visit [facility] [address] [place] [phone] Ayse Thompson NP [address] [place] [address] [facility] Start: 08-14-2024 End: 08-14-2024 Patient encounter procedure 08/14/2024 11:45 AM EDT Office Visit [facility] [address] [place] [phone] Prosper Waters MD [address] [place], [place] [id number] [facility] Start: 08-06-2024 End: 08-06-2024 Admission to same day surgery center 08/06/2024 8:00 AM EDT - 08/06/2024 11:00 AM EDT [facility] [place] [phone] Prosper Waters MD [address] [place] [address] [address] [place], [place] [id number] DAVINCI HYSTERECTOMY [facility] Comment on above: DAVINCI HYSTERECTOMY Start: 08-06-2024 End: 08-06-2024 Cystourethroscopy CYSTOSCOPY Menorrhagia with irregular cycle Dysmenorrhea Status post endometrial ablation 08/06/2024 8:00 AM EDT [facility] Start: 08-06-2024 End: 08-06-2024 DAVINCI HYSTERECTOMY DAVINCI HYSTERECTOMY Menorrhagia with irregular cycle Dysmenorrhea Status post endometrial ablation 08/06/2024 8:00 AM EDT [facility] Start: 08-06-2024 End: 08-06-2024 Laparoscopy w/rmvl adnexal structures DAVINCI SALPINGECTOMY Menorrhagia with irregular cycle Dysmenorrhea Status post endometrial ablation 08/06/2024 8:00 AM EDT [facility] Start: 08-06-2024 Subsequent hospital visit by physician 08/06/2024 8:00 AM EDT [facility] [address] [place] [phone] Prosper Waters MD [address] [place] [address] [address] [place] [address] [facility] Start: 07-31-2024 End: 07-31-2024 Patient encounter procedure 07/31/2024 11:15 AM EDT Office Visit [facility] [address] [facility] [address] [place] [phone] Prosper Waters MD [address] [place], [place] [phone] [facility] Start: 07-23-2024 End: 07-23-2024 Patient encounter procedure 07/23/2024 11:15 AM EDT Procedure visit [facility]Pre Ad[facility] Testing [address] [facility] [phone] [facility] Start: 07-05-2024 Adult BMI Screening Adult BMI Screen ing [facility] Start: 07-05-2024 Tobacco Screening Tobacco Screening [facility] Start: 07-01-2024 End: 07-01-2024 Patient encounter procedure 07/01/2024 5:00 PM EDT Office Visit [facility] [address] [place] [phone] DebraJoel prietoleDO [address] [place] [address] Arrived [facility] Comment on above: Arrived Start: 07-01-2024 End: 07-01-2025 MR Brain WO and W contrast IV MR brain w and wo contrast routine Imaging Routine Migraine without aura and without status migrainosus, not intractable (CMS/HCC) Abnormal brain MRI Expected: 07/01/2024, Expires: 07/01/2025 [facility] [employer] Work Phone: Comment on above: Expected: 07/01/2024 , Expires: 07/01/2025 Start: 06-30-2024 End: 06-30-2024 Patient encounter procedure 06/30/2024 11:30 AM EDT Office Visit [facility] [address] [facility] [address] [place] [address] Prosper Waters MD [address] [place] [address] [facility] Start: 06-20-2024 End: 06-20-2024 Admission to same day surgery center 06/20/2024 8:00 AM EST - 06/20/2024 11:00 AM EST Surgery [facility] [address] [place] [address] Prosper Waters MD [address] [place] [address] DAVINCI HYSTERECTOMY [facility] Comment on above: DAVINCI HYSTERECTOMY Start: 06-20-2024 End: 06-20-2024 Cystourethroscopy CYSTOSCOPY Menorrhagia with irregular cycle Dysmenorrhea Status post endometrial ablation 06/20/2024 8:00 AM EST [facility] Start: 06-20-2024 End: 06-20-2024 DAVINCI HYSTERECTOMY DAVINCI HYSTERECTOMY Menorrhagia with irregular cycle Dysmenorrhea Status post endometrial ablation 06/20/2024 8:00 AM [facility] Start: 06-20-2024 End: 06-20-2024 Laparoscopy w/rmvl adnexal structures DAVINCI SALPINGECTOMY Menorrhagia with irregular cycle Dysmenorrhea Status post endometrial ablation 06/20/2024 8:00 AM EST [facility] Start: 06-20-2024 Subsequent hospital visit by physician 06/20/2024 8:00 AM EST Hospital [facility] [address] [place] [phone] Prosper Waters MD [address] [place], [place] [id number] [facility] Start: 06-01-2024 Adult BMI Screening Adult BMI Screen ing [facility] Start: 05-26-2024 End: 05-26-2024 Patient encounter procedure 05/26/2024 9:45 AM EST Office Visit [facility] [address] [facility] [facility] [address] [place] [phone] Prosper Waters MD [address] [place] [address] [facility] Start: 04-20-2024 Adult BMI Screening Adult BMI Screen ing [facility] Start: 04-20-2024 Tobacco Screening Tobacco Screening [facility] Start: 04-04-2024 End: 04-04-2025 Cytopathology procedure, preparation of smear, genital source Pap Smear Pathology and Cytology Routine Cervical smear, as part of routine gynecological examination Expected: 04/04/2024 (Approximate), Expires: 04/04/2025 [facility] Work Phone: Comment on above: Expected: 04/04/2024 (Approximate), Expires: 04/04/2025 Start: 04-04-2024 End: 04-04-2025 US Pelvis transabdominal and transvaginal Ultrasound pelvic with transvaginal Imaging Routine Pelvic pain Abnormal uterine bleeding Hx of ovarian cyst Expected: 04/04/2024, Expires: 04/04/2025 [facility] Comment on above: Expected: 04/04/2024 , Expires: 04/04/2025 Start: 02-08-2024 End: 02-08-2024 Patient encounter procedure 02/08/2024 2:45 PM EDT [facility] [address] [place] [phone] Korey Trujillo MD [address] [place] [address] Remigio Hudson MD [address] [place] [address] [facility] Start: 01-18-2024 End: 01-18-2024 Patient encounter procedure 01/18/2024 9:00 AM EDT Office Visit [facility] [address] [place] [address] Korey Trujillo MD [address] [place] [address] [facility] Start: 12-23-2023 Influenza vaccination Influenza Vacc ine [facility] Start: 09-14-2023 End: 09-14-2023 Patient encounter procedure 09/14/2023 1:00 PM EDT Office Visit [facility] [address] [place] [phone] Laurie Fitch MD [address] [place] [address] [facility] Start: 09-10-2023 End: 09-10-2023 Patient encounter procedure 09/10/2023 1:00 PM EDT Office Visit [facility] [address] [place] [phone] Laurie Fitch MD [address] [place] [address] [facility] Start: 08-03-2023 End: 08-02-2024 Event Monitor (In Office) [facility] Work Phone: Comment on above: Expected: 08/03/2023 , Expires: 08/02/2024 Start: 07-06-2023 End: 07-06-2023 Patient encounter procedure 07/06/2023 10:30 AM EDT Office Visit [facility] [address] [place] [phone] Laurie Fitch MD [address] [place] [address] [facility] Start: 04-05-2023 Screening for malign ant neoplasm of cervix Pap Smear [facility] Start: 12-22-2022 Influenza vaccination Influenza Vacc ine [facility] Start: 1997 Screening for malign ant neoplasm of cervix Pap Smear [facility] Start: 1994 Adult BMI Follow Up Plan Adult BMI Follow Up Plan [facility] Start: 1988 Depression Screening Depression Scre ening [facility] Start: 1976 Screening for malign ant neoplasm [facility] End: 04-04-2025 High risk HPV w/fanny High risk HPV w/fanny Lab Routine Cervical smear, as part of routine gynecological examination 1 Occurrences starting 04/04/2024 until 04/04/2025 [facility] Comment on above: 1 Occurrences starti ng 04/04/2024 until 04/04/2025 Immunizations Immunization Date Immunization Notes Care Provider [facility] 02-08-2024 influenza virus vaccine, unspecified formulation Laurie Fitch MD Work Phone: [facility] 05-07-2013 influenza virus vaccine, unspecified formulation Ana Maria Hobbs [facility] Payers Date Payer Category Payer [employer] ( and others) [facility] [id number] 2022-Present [phone] [address] [place] [address] [id number] 2022 () [id number] [id number] 2022 [employer] ( and others) [id number] 2021 Medicaid MEDICAID MEDICAI D OUT OF STATE-NOT [place] -GENERIC [id number] 2021-Present [phone] [address] [place] [address] [id number]. [id number] 2018 Unknown [id number] 1976 Unknown [id number] 2.16.840.1.422302.3.579.2. 647 1976 Unknown [id number] 2.16.840.1.833048.3.579.2. 647 1976 Unknown [id number] 2.16.840.1.258399.3.579.2. 647 1976 Unknown [id number] 2.16.840.1.514025.3.579.2. 727 1976 Unknown [id number] 2.16.840.1.323288.3.579.2. 593 1976 Unknown [id number] 2.16.840.1.408330.3.579.2. 174 1976 Unknown [id number] 2.16.840.1.887584.3.579.2. 1286 1976 Unknown [id number] 2.16.840.1.378053.3.579.2. 1286 1976 Unknown [id number] 2.16.840.1.621993.3.579.2. 1259 1976 Unknown [id number] 2.16.840.1.494837.3.579.2. 1286 1976 Unknown [id number] 2.16.840.1.544539.3.579.2. 1286 1976 Unknown [id number] 2.16.840.1.268273.3.579.2. 1286 1976 Unknown [id number] 2.16.840.1.993850.3.579.2. 1286 1976 Unknown [id number] 2.16.840.1.011417.3.579.2. 1286 1976 Unknown [id number] 2.16.840.1.876811.3.579.2. 1286 1976 Unknown [id number] 2.16.840.1.080370.3.579.2. 1286 1976 Unknown [id number] 2.16.840.1.480288.3.579.2. 1286 1976 Unknown [id number] 2.16.840.1.085688.3.579.2. 1286 1976 Unknown [id number] 2.16.840.1.336385.3.579.2. [facility]6 1976 Unknown [id number] 2.16.840.1.272152.3.579.2. 1286 1976 Unknown [id number] 2.16.840.1.791522.3.579.2. [facility]6 1976 Unknown [id number] 2.16.840.1.990584.3.579.2. 1286 1976 Unknown [id number] 2.16.840.1.394672.3.579.2. [facility] Unknown [id number] 2.16.840.1.609580.3.579.2. [facility] 1976 Unknown [id number] 2.16.840.1.375384.3.579.2. [facility] 1976 Unknown [id number] 2.16.840.1.156490.3.579.2. 1286 1959 Private Health Insurance [id number] Social History Date Type Detail Facility Start: 05-22-2022 End: 06-13-2024 Tobacco smoking status NHIS Ex-smoker [facility] Start: 08-21-2005 End: 01-30-2021 History of tobacco use Current smoker [facility] Start: 08-21-2005 End: 01-30-2021 History of tobacco use Cigarette Smoker [facility] Start: 05-22-2022 End: 06-13-2024 Tobacco use and exposure Smokeless tobacco non-user [facility] Start: 05-22-2024 End: 08-07-2024 Alcoholic beverage intake Current non-drinker of alcohol (finding) [facility] Start: 12-10-2019 End: 05-06-2020 History of Social function [facility] Start: 12-10-2019 End: 05-06-2020 Alcohol Use Disorder Identification Test - Consumption [AUDIT-C] [facility] Frequency of Alcohol Consumption Never [facility] Start: 1975 Sex assigned at Female [facility] Start: 11-24-2014 Sex Female (finding) [facility] Start: 01-11-2021 Gender identity Identifies as female gender (finding) [facility] Start: 06-13-2022 Sexual orientation Heterosexual (finding) [facility] Start: 10-14-2022 End: 07-01-2024 Alcoholic beverage intake Ex-drinker (finding) [facility] Start: 10-14-2022 Alcohol Comment caffeine intake: 2-3 cups per day [facility] Clinical Notes 05-16-2023 to 07-31-2024 Prosper Waters MD - 07/31/2024 11:15 AM EDTTelephone Encounter - Sallie Rodgers RN - 07/29/2024 12:26 AM EDTTelephone Encounter - Sallie Rodgers RN - 07/29/2024 12:26 AM EDTPatient Instructions Note Date & Type Note Facility 07-31-2024 History of Present illness Narrative Andree Orozco is a 49 y.o. female who presents to the clinic 6 weeks status post DaVinci assisted total laparoscopic hysterectomy with bilateral salpingectomy and diagnostic cystourethroscopy for abnormal uterine bleeding, fibroids, and dysmenorrhea . Eating a regular diet without difficulty. Bowel movements are normal. The patient is not having any pain. The following portions of the patient's history were reviewed and updated as appropriate: allergies, current medications, past family history, past medical history, past social history, past surgical history and problem list. Review of Systems Pertinent items are noted in HPI. Objective Vitals: 07/31/24 1120 BP: 116/78 General: alert, appears stated age and cooperative Abdomen: soft, bowel sounds active, non-tender Incisions: Well healed : vaginal cuff well healed. Non-tender on bimanual exam and no masses Assessment The patient is here six weeks s/p TLH with Davinci Plan 1. Operative findings reviewed and pathology discussed. 2. All questions answered, patient understands. 3. Encouraged to call if questions or concerns documented in this encounter [facility] 07-29-2024 Miscellaneous Notes Ov-02/08/24 documented in this encounter [facility] 07-29-2024 Telephone encounter Note Ov-02/08/24 [facility] 07-01-2024 History of Present illness Narrative Images from the original note were not included. Chief Complaint Patient presents with Migraine Subjective Andree Phyllis Orozco, 49 y.o., female new patient here in neurologic consultation at the request of Dr Yessenia Basurto ([facility]) for migraines. HPI The patient was first diagnosed with migraines in 1997. She states that she no longer has the migraines weekly since starting topamax. She was on it for years and then she was taken off of it. She was put on something else as apparently she was not doing as well but got worse so she went back on it. She is doing better since being back on it She only gets them when the weather changes or when she has increased stress. She states about once a month and they last for about 4-5 days. She will have vomiting and dehydration when it comes on She states that she will have nausea and vomiting for the first 2 days and is unable to do anything other than try to sleep. She admits to photophobia and phonophobia. The patient denies vision changes. The patient states that she has tried several meds over the years for headache prevention and abortive. She does not take triptans due to they make her heart race and they were ineffective. She gets dizziness on occasion with or without a headache. She states that she was told years ago that she had 2 masses on her brain by Dr Vera Carter with [facility]. She had an MRI again later at [facility] in [facility] and was told the the masses were gone. She had a hysterectomy about 12 days ago. She does still have her ovaries. She does not think that her migraines are hormonal. He neck will tighten up and then she will have the migraine. She was tried on: depakote, Zanaflex, Elavil, pamelor, imitrex, maxalt, axert, zomig, Treximet, propranolol, hormones, ataracts, Lisinopril, cymbalta, pristiq, buspar. She had botox injecitons that worked for a while. Past Medical History: Diagnosis Date ADHD (attention deficit hyperactivity disorder) ([facility]) 2013 Anxiety with depression Asthma ([facility]) COVID-19 03/2021, 04/2021 Deviated septum Fibromyalgia, primary 2009 GERD (gastroesophageal reflux disease) Hypertension ([facility]) 04/2022 Migraines ([facility]) Spondylolysis cervicle and lumbar Past Surgical History: Procedure Laterality Date LUMBAR FUSION 2018 LUMBAR LAMINECTOMY 2018 SPINAL FUSION 2018 TUBAL LIGATION Bilateral Family History Problem Relation Name Age of Onset Hyperlipidemia Mother Nidhi Asthma Mother Nidhi COPD Mother Nidhi Fibromyalgia Mother Nidhi Migraines Mother Nidhi Diabetes Father Alzheimer's disease Maternal Grandfather Luciano Figueredo Dementia Maternal Grandfather Luciano Figueredo Stroke Maternal Grandfather Luciano Figueredo Social History Tobacco Use Smoking status: Former Current packs/day: 0.00 Average packs/day: 1 pack/day for 15.0 years (15.0 ttl pk-yrs) Types: Cigarettes Start date: 08/21/2005 Quit date: 01/30/2021 Years since quittin.4 Smokeless tobacco: Never Substance Use Topics Alcohol use: Not Currently Comment: caffeine intake: 2-3 cups per day Allergies: Patient has no known allergies. General: No fever or chills HEENT: No nasal congestion or runny nose Pulmonary: No shortness of breath or cough Cardiovascular: No chest pain or palpitations GI: No nausea or vomiting : No dysuria or hematuria Musculoskeletal: No new aches or pains or muscle weakness Infectious: no recurrent fevers or infections Dermatologic: No rashes or skin lesions Neurologic: No new headaches or dizziness Vitals: 07/01/24 1649 BP: 108/70 Pulse: 74 SpO2: 100% Body mass index is 24.73 kg/m . weight: 148 lb 9.6 oz Neurologic exam: General: Normal body habitus, cooperative, pleasant Mental status: Awake, alert to person, place and time. Recent and remote memory are intact. Attention and concentration are normal. Fund of knowledge is appropriate for level of education. HEENT: NC/AT Cranial nerves: CN II: Visual guzmán full to confrontation. No loss of vision CN III, IV, : pupils equal round and reactive to light. Extraocular movements intact. No ptosis present. CN V: Facial sensation is normal. CN VII: Full and symmetric facial movement. CN VIII: Hearing is normal CN IX and X: Palate elevates symmetrically. CN XI: Shoulder shrug is normal bilaterally. CN XII: Tongue is midline without atrophy or fasciculation. Speech: Clear and fluent no aphasia or dysarthria Pronator drift: Negative bilateral upper extremity Coordination: Intact, no signs of dysmetria Good finger to nose and rapid alternating movements Sensory: Sensation is intact to light, temperature and vibratory touch throughout four extremities. Pinprick intact in all four extremities. Motor: LUE 5/5 RUE 5/5 LLE 5/5 RLE 5/5 Tone: Physiologic, no tremor, bradykinesia or rigidity DTR: Bilateral Biceps 2/4 Bilateral BR 2/4 Bilateral Patellar 2/4 No spasticity Gait: Normal to casual gait Romberg's Negative Review and summary of old records: Assessment/Plan Diagnoses and all orders for this visit: Migraine without aura and without status migrainosus, not intractable (CMS/HCC) - MR brain w and wo contrast routine; Future Abnormal brain MRI - Ubrogepant (Ubrelvy) 100 MG tablet; Take 1 tablet by mouth if needed (May repeat in 2 hours. Max of 2 tablets in 24 hours.) - Atogepant (Qulipta) 60 MG tablet; Take 60 mg by mouth Daily - MR brain w and wo contrast routine; Future Dizziness Nausea and vomiting, unspecified vomiting type 49-year-old female with a long history of migraine headaches. They have waxed and waned throughout the years. She was on Topamax for awhile then it sounds like it lost its efficacy and she was taken off of it. She was put on some other medications. They did not work quite as well so she was placed back on the Topamax and she has seen an improvement. The challenges she has about 4-5 days in a month that she has a severe migraine to the point where she has intractable nausea and vomiting and can not function. She does not have a good abortive medicine. She can not take triptans as she had side effects to them in the past. She has tried multiple. She did try Nurtec and that was unhelpful. We will go ahead and do a trial of Ubrelvy and see if that will work. If not we may need to try Reyvow the ditan. We will also do a trial of Qulipta with the Topamax and see if that is helpful. She is on 200 mg of Topamax daily we could try to go up on that pending her course. A few years ago was placed on an injection. I have no record of that. I do see where she saw [facility] for some time. There she was diagnosed with an abnormal MRI. It showed: Small focus of enhancement in the subcortical white matter of the right frontal lobe, of unclear etiology but possibly vascular. There is no associated edema or mass effect. Consider short-term follow-up MRI in 4-6 months to document stability. She reports this repeat testing when she was in [place] and it was gone and her MRI was normal. I do not have those reports so it may be beneficial to repeat MRI of the brain to assess this area and be sure that there is nothing else occurring. On Cymbalta that may be helping with her migraines then we could certainly try to go up to 60 mg. She could try some Migravent [id number] and see if that helps. In addition she should be exercising regularly try an elimination diet and avoiding any triggers. She was tried on: depakote, Zanaflex, Elavil, pamelor, imitrex, maxalt, axert, zomig, Treximet, propranolol, hormones, ataracts, Lisinopril, cymbalta, pristiq, buspar. She had botox injecitons that worked for a while. An injectable but she does not remember what it was Plan: Continue the Topamax Continue the Cymbalta Trial of Ubrelvy abortive and see if that works for her Consider a trial of Reyvow Add in qulipta 60mg to the topamax and see if that helps Can try some Migravent Elimination diet 40 minutes or more of cardiovascular exercise at least 3 days a week. Avoid triggers WONG hand out givne The diagnosis was all discussed with the patient. All questions were answered and they agreed with the treatment plan. Patient will call if there are any new issues or questions. Pt has been fully educated on their diagnosis, treatment options, follow up plan, and return instructions Return to clinic: 2 months documented in this encounter [facility] 06-30-2024 History of Present illness Narrative Andree Orozco is a 49 y.o. female who presents to the clinic 1 weeks status post Davinci assisted Hysterectomy for menorrhagia with irregular periods . Eating a regular diet without difficulty. Bowel movements are normal. The patient is not having any pain. The following portions of the patient's history were reviewed and updated as appropriate: allergies, current medications, past family history, past medical history, past social history, past surgical history and problem list. Review of Systems Pertinent items are noted in HPI. Objective Vitals: 06/30/24 1120 BP: 110/80 General: alert, appears stated age and cooperative Abdomen: soft, bowel sounds active, non-tender Incisions: healing well Assessment The patient is here one week s/p Davinci assisted hysterectomy and doing well. Plan 1. Operative findings reviewed and pathology discussed. 2. All questions answered, patient understands. 3. Encouraged to call if questions or concerns documented in this encounter [facility] 06-21-2024 Miscellaneous Notes Contract: 111 Andree had a hysterectomy yesterday. She is keeps vomiting about every hour and having trouble swallowing Called and connected michael Patient's calls with concern that patient is unable to keep pain medication down. Reports she has been vomiting ever 2 hours and is not even able to keep water down. Also reports that she is having difficulty swallowing and reports throat is sore. Spoke with patient and she reports that her pain is a 9/10. She reports that she started vomiting yesterday and that she has been unable to keep anything down. She has not been able to drink water or keep her pain medication down. She also reports that she is having difficulty swallow. She reports that she was told her uvula was swollen but she states it feel like something is in her throat. Patient also report that it is difficult for her to move with the amount of pain she is in. Advised patient to do to the ED for possible dehydration and pain management. Patient voiced understanding. - WILY Barajas 06/21/24 10:53 AM documented in this encounter [facility] 06-21-2024 Telephone encounter Note Contract: 111 Andree had a hysterectomy yesterday. She is keeps vomiting about every hour and having trouble swallowing [facility] 06-21-2024 Telephone encounter Note Called and connected michael [facility] 06-21-2024 Telephone encounter Note Patient's calls with concern that patient is unable to keep pain medication down. Reports she has been vomiting ever 2 hours and is not even able to keep water down. Also reports that she is having difficulty swallowing and reports throat is sore. Spoke with patient and she reports that her pain is a 9/10. She reports that she started vomiting yesterday and that she has been unable to keep anything down. She has not been able to drink water or keep her pain medication down. She also reports that she is having difficulty swallow. She reports that she was told her uvula was swollen but she states it feel like something is in her throat. Patient also report that it is difficult for her to move with the amount of pain she is in. Advised patient to do to the ED for possible dehydration and pain management. Patient voiced understanding. - WILY Barajas 06/21/24 10:53 AM [facility] Work Phone: 06-13-2024 History and physical note PRE-ADMISSION TESTING HISTORY AND PHYSICAL EXAM DATE: 06/13/24 PCP: DESIRAE CHAUDHARI CHIEF COMPLAINT: menorrhagia with irregular cycle HISTORY OF PRESENT ILLNESS: Andree Orozco, a 49 y.o. White or female, presents to [facility] for a pre-surgical H&P for DAVINCI HYSTERECTOMY, DAVINCI SALPINGECTOMY, CYSTOSCOPY with Prosper Waters MD on 06/20/24. The patient has been diagnosed with Pre-Op Diagnosis Codes: * Menorrhagia with irregular cycle [N92.1] * Dysmenorrhea [N94.6] * Status post endometrial ablation [Z98.890] . She complains of pelvic cramping. She had endometrial ablation in 2013. She really didn't have periods until February 2024. She had two periods one in February and one in March that were heavy and painful. She has not had a period but has continued with abdominal pain and cramping. She tried aygestin but had to stop due to side effects. She has been having [id number] working due to pain. She has assocaited nausea and vomiting at times. Menarche age 14. . 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 Pelvic US Heterogeneous myometrium which may reflect adenomyosis; Myomatous uterus noting the largest myoma measures 2.0 cm The patient denies h/o anesthesia problems. Today the patient is in usual state of health and denies acute complaints. T PAST MEDICAL HISTORY: Past Medical History: Diagnosis Date Anxiety Asthma exercise induced no inhalers Cervical spondylosis Dental disease crown Depression Dizziness FROM ABDOMEN PAIN Essential hypertension, benign Fibromyalgia, primary GERD (gastroesophageal reflux disease) Heart murmur Hiatal hernia Lumbar spondylosis Migraine Right lower quadrant pain 10/10 ON PAIN SCALE Syncope FROM EXCRUCIATING PAIN 05/28/24- WENT TO ER SARAH KATERINA Uterine fibroid here for workup for pending davinci hysterectomy Visual impairment contacts PAST SURGICAL HISTORY: Past Surgical History: Procedure Laterality Date BACK SURGERY spinal fusion 06/03/13 CERVICAL BIOPSY W/ LOOP ELECTRODE EXCISION 07/03/06 COLONOSCOPY COLPOSCOPY W/ BIOPSY / CURETTAGE 04/14/06 cervical bx #1lgsil #2 bx lgsil #3 bx hgsil DILATION AND CURETTAGE OF UTERUS ENDOMETRIAL ABLATION ESOPHAGOGASTRODUODENOSCOPY TUBAL LIGATION FAMILY HISTORY: Family History Problem Relation Age of Onset Alcohol abuse Mother Migraines Mother Diverticulitis Mother Diabetes Father Breast cancer Neg Hx Colon cancer Neg Hx Ovarian cancer Neg Hx SOCIAL HISTORY: The patient reports no history of alcohol use. She reports that she quit smoking about 32 years ago. Her smoking use included cigarettes. She started smoking about 4 years ago. She has a 4.1 pack-year smoking history. She has never used smokeless tobacco. She reports current drug use. Drug: Marijuana. ALLERGIES: No Known Allergies MEDICATIONS: Current Outpatient Medications: busPIRone (BUSPAR) 10 mg tablet, Take 2 tablets (20 mg total) by mouth every 12 (twelve) hours., Disp: , Rfl: cetirizine (ZyrTEC) 10 mg tablet, Take 1 tablet (10 mg total) by mouth in the morning., Disp: , Rfl: DULoxetine (CYMBALTA) 30 mg capsule, Take 1 capsule (30 mg total) by mouth in the morning., Disp: , Rfl: hydrOXYzine (VISTARIL) 25 mg capsule, Take 2 capsules (50 mg total) by mouth in the morning and at bedtime., Disp: , Rfl: metoprolol succinate XL (TOPROL XL) 25 mg 24 hr tablet, Take 1 tablet (25 mg total) by mouth once daily at bedtime., Disp: 90 tablet, Rfl: 3 omeprazole (PriLOSEC OTC) 20 mg EC tablet, Take 1 tablet (20 mg total) by mouth every morning before breakfast., Disp: , Rfl: promethazine (PHENERGAN) 12.5 mg tablet, Take 1 tablet (12.5 mg total) by mouth every 6 (six) hours as needed for nausea or vomiting., Disp: 30 tablet, Rfl: 0 topiramate (TOPAMAX) 100 mg tablet, Take 1 tablet (100 mg total) by mouth in the morning and 1 tablet (100 mg total) before bedtime., Disp: , Rfl: REVIEW OF SYSTEMS: Review of Systems Constitutional: Negative for fever and chills. HENT: Positive for dental problem. Negative for congestion and rhinorrhea. Eyes: Positive for visual disturbance. Negative for pain and redness. Respiratory: Negative for cough and shortness of breath. Cardiovascular: Negative for chest pain and palpitations. Gastrointestinal: Positive for nausea and abdominal pain. Negative for vomiting and diarrhea. GERD Genitourinary: Positive for menstrual problem and pelvic pain. Negative for dysuria and frequency. Musculoskeletal: Positive for back pain and neck pain. Negative for arthralgias. Skin: Negative for rash and wound. Neurological: Negative for dizziness and headaches. VITAL SIGNS: BP (!) 136/91 Pulse 63 Temp (!) 35.7 C (96.3 F) (Temporal) Resp 18 Ht 165.5 cm (5' 5.16 ) Wt 65.4 kg (144 lb 2.9 oz) LMP 04/06/2024 (Exact Date) SpO2 100% BMI 23.88 kg/m PHYSICAL EXAM: Physical Exam Vitals reviewed. Constitutional: Appearance: Normal appearance. Comments: Appears to be in pain HENT: Head: Normocephalic and atraumatic. Mouth/Throat: Pharynx: Oropharynx is clear. No oropharyngeal exudate or posterior oropharyngeal erythema. Comments: Mallampati II Eyes: General: Right eye: No discharge. Left eye: No discharge. Conjunctiva/sclera: Conjunctivae normal. Cardiovascular: Rate and Rhythm: Normal rate and regular rhythm. Pulmonary: Effort: Pulmonary effort is normal. Breath sounds: Normal breath sounds. Abdominal: Palpations: Abdomen is soft. Tenderness: There is abdominal tenderness. Musculoskeletal: Right lower leg: No edema. Left lower leg: No edema. Skin: General: Skin is warm and dry. Neurological: General: No focal deficit present. Mental Status: She is alert and oriented to person, place, and time. Psychiatric: Mood and Affect: Mood normal. Behavior: Behavior normal. RECENT LABS: Lab Results Component Value Date WBC 6.9 05/28/2024 HGB 14.1 05/28/2024 HCT 42.5 05/28/2024 PLT 365 05/28/2024 INR 1.1 03/21/2023 PTT 31 03/21/2023 SODIUM 137 05/28/2024 K 3.8 05/28/2024 CL 111 (H) 05/28/2024 CO2 20 (L) 05/28/2024 CALCIUM 9.4 05/28/2024 ALKPHOS 75 05/28/2024 ALBUMIN 4.9 05/28/2024 GLU 113 (H) 05/28/2024 ALT 11 05/28/2024 AST 16 05/28/2024 CREATININE 1.05 (H) 05/28/2024 BUN 15 05/28/2024 GFR >60 10/29/2013 GFR >60 10/29/2013 TSH 2.29 05/22/2022 *Please note that labs listed above are the most recent lab values available in [facility] at the time of the office visit and additional labs may have been drawn since that time. ASSESSMENT / DIAGNOSIS: Pre-Op Diagnosis Codes: * Menorrhagia with irregular cycle [N92.1] * Dysmenorrhea [N94.6] * Status post endometrial ablation [Z98.890] PLAN: Andree Orozco is scheduled for DAVINCI HYSTERECTOMY, DAVINCI SALPINGECTOMY, CYSTOSCOPY with Prosepr Waters MD on 06/20/24 PINEDA Boswell 06/13/24 [address] [facility] [employer] Work Phone: 06-13-2024 History and physical note PRE-ADMISSION TESTING HISTORY AND PHYSICAL EXAM DATE: 06/13/24 PCP: DESIRAE CHAUDHARI CHIEF COMPLAINT: menorrhagia with irregular cycle HISTORY OF PRESENT ILLNESS: Andree Orozco, a 49 y.o. White or female, presents to [facility] for a pre-surgical H&P for DAVINCI HYSTERECTOMY, DAVINCI SALPINGECTOMY, CYSTOSCOPY with Prosper Waters MD on 06/20/24. The patient has been diagnosed with Pre-Op Diagnosis Codes: * Menorrhagia with irregular cycle [N92.1] * Dysmenorrhea [N94.6] * Status post endometrial ablation [Z98.890] . She complains of pelvic cramping. She had endometrial ablation in 2013. She really didn't have periods until February 2024. She had two periods one in February and one in March that were heavy and painful. She has not had a period but has continued with abdominal pain and cramping. She tried aygestin but had to stop due to side effects. She has been having Fundris[employer] working due to pain. She has assocaited nausea and vomiting at times. Menarche age 14. . 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 Pelvic US Heterogeneous myometrium which may reflect adenomyosis; Myomatous uterus noting the largest myoma measures 2.0 cm The patient denies h/o anesthesia problems. Today the patient is in usual state of health and denies acute complaints. T PAST MEDICAL HISTORY: Past Medical History: Diagnosis Date Anxiety Asthma exercise induced no inhalers Cervical spondylosis Dental disease crown Depression Dizziness FROM ABDOMEN PAIN Essential hypertension, benign Fibromyalgia, primary GERD (gastroesophageal reflux disease) Heart murmur Hiatal hernia Lumbar spondylosis Migraine Right lower quadrant pain 10/10 ON PAIN SCALE Syncope FROM EXCRUCIATING PAIN 05/28/24- WENT TO ER SARAH BORGES Uterine fibroid here for workup for pending davinci hysterectomy Visual impairment contacts PAST SURGICAL HISTORY: Past Surgical History: Procedure Laterality Date BACK SURGERY spinal fusion 06/03/13 CERVICAL BIOPSY W/ LOOP ELECTRODE EXCISION 07/03/06 COLONOSCOPY COLPOSCOPY W/ BIOPSY / CURETTAGE 04/14/06 cervical bx #1lgsil #2 bx lgsil #3 bx hgsil DILATION AND CURETTAGE OF UTERUS ENDOMETRIAL ABLATION ESOPHAGOGASTRODUODENOSCOPY TUBAL LIGATION FAMILY HISTORY: Family History Problem Relation Age of Onset Alcohol abuse Mother Migraines Mother Diverticulitis Mother Diabetes Father Breast cancer Neg Hx Colon cancer Neg Hx Ovarian cancer Neg Hx SOCIAL HISTORY: The patient reports no history of alcohol use. She reports that she quit smoking about 32 years ago. Her smoking use included cigarettes. She started smoking about 4 years ago. She has a 4.1 pack-year smoking history. She has never used smokeless tobacco. She reports current drug use. Drug: Marijuana. ALLERGIES: No Known Allergies MEDICATIONS: Current Outpatient Medications: busPIRone (BUSPAR) 10 mg tablet, Take 2 tablets (20 mg total) by mouth every 12 (twelve) hours., Disp: , Rfl: cetirizine (ZyrTEC) 10 mg tablet, Take 1 tablet (10 mg total) by mouth in the morning., Disp: , Rfl: DULoxetine (CYMBALTA) 30 mg capsule, Take 1 capsule (30 mg total) by mouth in the morning., Disp: , Rfl: hydrOXYzine (VISTARIL) 25 mg capsule, Take 2 capsules (50 mg total) by mouth in the morning and at bedtime., Disp: , Rfl: metoprolol succinate XL (TOPROL XL) 25 mg 24 hr tablet, Take 1 tablet (25 mg total) by mouth once daily at bedtime., Disp: 90 tablet, Rfl: 3 omeprazole (PriLOSEC OTC) 20 mg EC tablet, Take 1 tablet (20 mg total) by mouth every morning before breakfast., Disp: , Rfl: promethazine (PHENERGAN) 12.5 mg tablet, Take 1 tablet (12.5 mg total) by mouth every 6 (six) hours as needed for nausea or vomiting., Disp: 30 tablet, Rfl: 0 topiramate (TOPAMAX) 100 mg tablet, Take 1 tablet (100 mg total) by mouth in the morning and 1 tablet (100 mg total) before bedtime., Disp: , Rfl: REVIEW OF SYSTEMS: Review of Systems Constitutional: Negative for fever and chills. HENT: Positive for dental problem. Negative for congestion and rhinorrhea. Eyes: Positive for visual disturbance. Negative for pain and redness. Respiratory: Negative for cough and shortness of breath. Cardiovascular: Negative for chest pain and palpitations. Gastrointestinal: Positive for nausea and abdominal pain. Negative for vomiting and diarrhea. GERD Genitourinary: Positive for menstrual problem and pelvic pain. Negative for dysuria and frequency. Musculoskeletal: Positive for back pain and neck pain. Negative for arthralgias. Skin: Negative for rash and wound. Neurological: Negative for dizziness and headaches. VITAL SIGNS: BP (!) 136/91 Pulse 63 Temp (!) 35.7 C (96.3 F) (Temporal) Resp 18 Ht 165.5 cm (5' 5.16 ) Wt 65.4 kg (144 lb 2.9 oz) LMP 04/06/2024 (Exact Date) SpO2 100% BMI 23.88 kg/m PHYSICAL EXAM: Physical Exam Vitals reviewed. Constitutional: Appearance: Normal appearance. Comments: Appears to be in pain HENT: Head: Normocephalic and atraumatic. Mouth/Throat: Pharynx: Oropharynx is clear. No oropharyngeal exudate or posterior oropharyngeal erythema. Comments: Mallampati II Eyes: General: Right eye: No discharge. Left eye: No discharge. Conjunctiva/sclera: Conjunctivae normal. Cardiovascular: Rate and Rhythm: Normal rate and regular rhythm. Pulmonary: Effort: Pulmonary effort is normal. Breath sounds: Normal breath sounds. Abdominal: Palpations: Abdomen is soft. Tenderness: There is abdominal tenderness. Musculoskeletal: Right lower leg: No edema. Left lower leg: No edema. Skin: General: Skin is warm and dry. Neurological: General: No focal deficit present. Mental Status: She is alert and oriented to person, place, and time. Psychiatric: Mood and Affect: Mood normal. Behavior: Behavior normal. RECENT LABS: Lab Results Component Value Date WBC 6.9 05/28/2024 HGB 14.1 05/28/2024 HCT 42.5 05/28/2024 PLT 365 05/28/2024 INR 1.1 03/21/2023 PTT 31 03/21/2023 SODIUM 137 05/28/2024 K 3.8 05/28/2024 CL 111 (H) 05/28/2024 CO2 20 (L) 05/28/2024 CALCIUM 9.4 05/28/2024 ALKPHOS 75 05/28/2024 ALBUMIN 4.9 05/28/2024 GLU 113 (H) 05/28/2024 ALT 11 05/28/2024 AST 16 05/28/2024 CREATININE 1.05 (H) 05/28/2024 BUN 15 05/28/2024 GFR >60 10/29/2013 GFR >60 10/29/2013 TSH 2.29 05/22/2022 *Please note that labs listed above are the most recent lab values available in [facility] at the time of the office visit and additional labs may have been drawn since that time. ASSESSMENT / DIAGNOSIS: Pre-Op Diagnosis Codes: * Menorrhagia with irregular cycle [N92.1] * Dysmenorrhea [N94.6] * Status post endometrial ablation [Z98.890] PLAN: Andree Orozco is scheduled for DAVINCI HYSTERECTOMY, DAVINCI SALPINGECTOMY, CYSTOSCOPY with Prosper Waters MD on 06/20/24 PINEDA Boswell 06/13/24 1112 [facility] [employer] 06-13-2024 Instructions Mariaelena Cuellar RN - 06/13/2024 10:00 AM EST Pre-Surgery Instructions: Medication Instructions busPIRone (BUSPAR) 10 mg tablet Take last dose day before procedure cetirizine (ZyrTEC) 10 mg tablet Take morning of procedure DULoxetine (CYMBALTA) 30 mg capsule Take morning of procedure hydrOXYzine (VISTARIL) 25 mg capsule Take last dose day before procedure metoprolol succinate XL (TOPROL XL) 25 mg 24 hr tablet Take last dose day before procedure omeprazole (PriLOSEC OTC) 20 mg EC tablet Take morning of procedure promethazine (PHENERGAN) 12.5 mg tablet Take last dose day before procedure topiramate (TOPAMAX) 100 mg tablet Take morning of procedure SURGERY DATE:06-20-24 ARRIVAL TIME: 6:00AM HYSTERECTOMY [facility]: Entrance # [facility] Outpatient Surgery Center next to the Emergency Center. Bring a photo ID and your insurance card with you the day of surgery. If you have a Living Will / Durable Power of Tongue Lining Stitcher for Health Care which is not on file, please bring a copy with you the day of surgery. Please wash (tub bath or shower) NIGHT BEFORE surgery. Follow CHG WIPE Instructions. CHG WIPES and written instructions given. DO NOT apply deodorant, powder, lotion, aftershave, perfume, make-up, nail georgian. HOLD ASPIRIN and ASPIRIN PRODUCTS for 7 days prior to surgery. IF you have been prescribed ASPIRIN by your Development System Efficiency Manager or primary care physician, CONTACT Development System Efficiency Manager or physician about holding aspirin for surgery. HOLD BLOOD THINNERS as directed by prescribing doctor in COLLABORATION with Surgeon And Anesthesiologist. HOLD NSAIDs - Ibuprofen, Motrin, Aleve, Celebrex, mobic, meloxicam, etc. for 3 days prior to surgery. You may use Tylenol. HOLD vitamins, minerals, herbal supplements, and Holistic supplements for 7 days prior to surgery. Examples: Ephedra, garlic, gingko, ginseng, fish oil, (Lovaza, Vascepa), Kava, Vitamin E, Saw Sigurd, Chicken's Wort, Trudy, Vitamin E). (exceptions - continue taking iron if you are anemic). DIABETIC MEDICATIONS/ WEIGHT LOSS MEDICATIONS : IF you take INSULIN or have an INSULIN PUMP, contact your prescribing doctor now for instructions on how to manage this the night before and the morning of surgery. IF you take Invokana, Jardiance, Farxiga, HOLD for 3 days prior to surgery. IF you take Ozempic or Trulicity DAILY, HOLD day of surgery. IF you take Ozempic or Trulicity WEEKLY, HOLD 1 week prior to surgery. NOTHING to EAT for 8 hours prior to surgery. You may have CLEAR LIQUIDS up to 4 hours prior to surgery. Clear liquids - something you can see through including: Water, apple juice, Gatorade. NO coffee or tea, NO milk or creamer, NO juice with pulp. If medication must be taken during this fasting period, take medication with a tiny sip of water. MEDICATIONS to take the MORNING of surgery: TOPIRAMATE, DULOXETINE, OMEPRAZOLE,CETIRIZINE If you use an INHALER, bring it with you the day of surgery. If you have a SPINAL CORD STIMULATOR, be sure remote is fully charged. BRING remote day of surgery. If you wear DENTURES, DO NOT USE adhesive day of surgery. If you wear HEARING AIDS, WEAR THEM to pre-op on the day of surgery. If you use C-pap or Bi-pap, you may bring it with you day of surgery. Choose a responsible adult to accompany you to the hospital that will be able to: -remain at the hospital during your procedure. -drive you home after your surgery. -stay with you in your home for 24 hours after your procedure. You must NOT drive any vehicle or operate any machinery for 24 hours OR until okay with surgeon. When you dress for your surgery, please wear loose fitting clothing, appropriate for your surgical procedure. Do NOT wear jewelry or watches. ALL piercing's must be removed. BRING GREEN BLOOD BAND DAY OF SURGERY Anesthesiologist will talk to you the day of the surgery. You will be asked to sign an anesthesia consent form. documented in this encounter [employer] 05-26-2024 History of Present illness Narrative HPI: The patient is a 49 y/o here today from Dr. Shin to discuss having a hysterectomy. She had an ablation in [address] Melanie Quevedo. She states she did have periods after that but they were very light. From 2019 until of last year she did not have any bleeding. She started having bleeding 02/24/2024 and it was very heavy with clotting and cramping. She had another episode of bleeding 04/06/2024 and it was the same. She has not had any bleeding since then but does have cramping every day. She states that nothing is helping with the pain. Current contraception: bilateral tubal ligation/occlusion/sterilization Relationship status: Sexually active: Yes Gaudena [employer]oker [employer] The following portions of the patient's history were reviewed and updated as appropriate: allergies, current medications, past family history, past medical history, past social history, past surgical history and problem list. Review of Systems - General ROS: Denies fatigue, weight loss, weight gain Psychological ROS: denies mood changes or sleep disturbances Respiratory ROS: Denies shortness of breath or cough Cardiovascular ROS: Denies chest pain, denies edema of extremities or palpitations Gastrointestinal ROS: Denies nausea, vomiting, constipation or diarrhea. Denies blood in stools. denies heartburn Genito-Urinary ROS:+ heavy painful menses,denies vaginal discharge, leakage of urine or hematuria Musculoskeletal ROS: denies joint pain or swelling Neurological ROS: dizziness, headache, weakness Dermatological ROS: denies hair changes, mole changes, rash Vitals: 05/26/24 0946 BP: (!) 144/100 Body mass index is 25.83 kg/m . Patient's last menstrual period was 04/06/2024 (exact date). Objective: Physical Exam Constitutional: the patient was observed to be alert and in no acute distress. Neck: the appearance of the neck was normal. Pulmonary: no respiratory distress. Vascular:. there was no peripheral edema. Skin: normal skin color and pigmentation. Neurological: the patient was oriented to person, place, and time and mood and affect were appropriate Andree was seen today for menorrhagia and dysmenorrhea. Diagnoses and all orders for this visit: Menorrhagia with irregular cycle Status post endometrial ablation Pelvic pain Dysmenorrhea Other orders - norethindrone (AYGESTIN) 5 mg tablet; Take 1 tablet (5 mg total) by mouth in the morning. Discussed with patient that I will attempt to get her into surgery as soon as possible. Her insurance does not cover [facility] for surgery so we are unable to schedule the hysterectomyy there. - NAOMI Fatima 05/26/24 9:50 AM documented in this encounter [facility] [employer] 05-22-2024 History of Present illness Narrative Subjective Patient ID: Andree Orozco is a 49 y.o. female who presents today for follow-up of pelvic ultrasound results. Patient had an endometrial ablation in 1999. She has been mostly amenorrheic for the past 4 years. She began bleeding in February, however and had incredibly heavy painful menses completely saturating pads. She has not had a menses in April, but is in severe pain today. Patient is not able to work secondary to the pain. She is taking Motrin, naproxen, and has had a few Percocet given to her by her mother. None of these medications are relieving her symptoms. She is having nausea with Zofran is not helping. Chief Complaint: Status post ablation with recent onset of menorrhagia, irregular menses, dysmenorrhea, severe pelvic pain, nausea Menstrual History: OB History 2 Para 2 Term 2 AB Living 2 SAB IAB Ectopic Multiple Live Births 2 Patient's last menstrual period was 04/06/2024 (exact date). The following portions of the patient's history were reviewed and updated as appropriate: allergies, current medications, past family history, past medical history, past social history, past surgical history, problem list, and medication reconciliation was completed including current medication and post discharge medication. Review of Systems Constitutional: negative Respiratory: negative Cardiovascular: negative Gastrointestinal: Nausea associated with acute pain Genitourinary: Severe pain, dysmenorrhea, menorrhagia status post ablation Objective BP 110/60 Ht 165.1 cm (5' 5 ) Wt 70.4 kg (155 lb 3.2 oz) LMP 04/06/2024 (Exact Date) BMI 25.83 kg/m General: alert, appears stated age, cooperative, moderate distress, and patient is bending forward holding her abdomen and in tears Heart: regular rate and rhythm, S1, S2 normal, no murmur, click, rub or gallop Lungs: clear to auscultation bilaterally Ultrasound pelvic with transvaginal Order Status: Final result Study Result US PELVIC WITH TRANSVAGINAL HISTORY: Abnormal uterine bleeding, pelvic pain, prior endometrial ablation COMPARISON: CT abdomen and pelvis 01/22/2024 and pelvic ultrasound 06/04/2008 TECHNIQUE: Transabdominal and transvaginal sonographic evaluation of the pelvis. Transabdominal imaging performed to evaluate for extra adnexal pelvic pathology. Transvaginal imaging performed for better delineation of the adnexal and endometrial contents. Color Doppler used. FINDINGS: Uterus: 7.2 x 4.2 x 4.1 cm Endometrial Thickness: 3.9 mm Right Ovary: 1.8 x 1.5 x 1.4 cm Left Ovary: 2.5 x 2.3 x 1.4 cm The uterus demonstrates appropriate size noting heterogeneous myometrium. The endometrium is unremarkable. Multiple isoechoic/hypoechoic lesions within the uterus likely representing fibroids, the largest is a posterior fundal intramural 2.0 x 2.0 x 1.5 cm myoma. No significant intralesional vascularity demonstrated by color Doppler. The ovaries are unremarkable. Dominant right ovarian follicle. Normal color flow bilaterally. No adnexal masses demonstrated. No free fluid. IMPRESSION: 1. Heterogeneous myometrium which may reflect adenomyosis. Recommend clinical correlation and consider enhanced MR of the pelvis for further characterization if warranted. 2. Myomatous uterus noting the largest myoma measures 2.0 cm (posterior fundal intramural, FIGO 4) Approved by Jules Jimenez MD on 05/02/2024 10:01 AM FIGO classification Type 0 Pedunculated, intracavitary Type 1 Submucosal, <50% intramural Type 2 Submucosal, ?50% intramural Type 3 Contact with endometrium, 100% intramural Type 4 Intramural Type 5 Subserosal, ?50% intramural Type 6 Subserosal, <50% intramural Type 7 Subserosal, pedunculated Type 8 Other (e.g., cervical, parasitic) I, Shira Carrasco MD have personally reviewed the image(s) and agree with and/or edited the report Finalized by Shira Carrasco MD on 05/02/2024 11:47 AM Study Result Narrative & Impression US PELVIC WITH TRANSVAGINAL HISTORY: Abnormal uterine bleeding, pelvic pain, prior endometrial ablation COMPARISON: CT abdomen and pelvis 01/22/2024 and pelvic ultrasound 06/04/2008 TECHNIQUE: Transabdominal and transvaginal sonographic evaluation of the pelvis. Transabdominal imaging performed to evaluate for extra adnexal pelvic pathology. Transvaginal imaging performed for better delineation of the adnexal and endometrial contents. Color Doppler used. FINDINGS: Uterus: 7.2 x 4.2 x 4.1 cm Endometrial Thickness: 3.9 mm Right Ovary: 1.8 x 1.5 x 1.4 cm Left Ovary: 2.5 x 2.3 x 1.4 cm The uterus demonstrates appropriate size noting heterogeneous myometrium. The endometrium is unremarkable. Multiple isoechoic/hypoechoic lesions within the uterus likely representing fibroids, the largest is a posterior fundal intramural 2.0 x 2.0 x 1.5 cm myoma. No significant intralesional vascularity demonstrated by color Doppler. The ovaries are unremarkable. Dominant right ovarian follicle. Normal color flow bilaterally. No adnexal masses demonstrated. No free fluid. IMPRESSION: 1. Heterogeneous myometrium which may reflect adenomyosis. Recommend clinical correlation and consider enhanced MR of the pelvis for further characterization if warranted. 2. Myomatous uterus noting the largest myoma measures 2.0 cm (posterior fundal intramural, FIGO 4) Approved by Jules Jimenez MD on 05/02/2024 10:01 AM FIGO classification Type 0 Pedunculated, intracavitary Type 1 Submucosal, <50% intramural Type 2 Submucosal, ?50% intramural Type 3 Contact with endometrium, 100% intramural Type 4 Intramural Type 5 Subserosal, ?50% intramural Type 6 Subserosal, <50% intramural Type 7 Subserosal, pedunculated Type 8 Other (e.g., cervical, parasitic) I, Shira Carrasco MD have personally reviewed the image(s) and agree with and/or edited the report Finalized by Shira Carrasco MD on 05/02/2024 11:47 AM Imaging Ultrasound pelvic with transvaginal (Order: [id number]) - 05/02/2024 Result History Ultrasound pelvic with transvaginal (Order #[id number]) on 05/02/2024 - Order Result History Report Assessment 1. Abnormal uterine bleeding due to intramural leiomyoma 2. Uterus, adenomyosis 3. Pelvic pain 4. Nausea 5. Status post endometrial ablation 6. Menorrhagia with irregular cycle 7. Dysmenorrhea Plan 1. Patient's ultrasound findings were reviewed. Patient has multiple fibroids as well as probable adenomyosis. Patient states she is done with attempts at medical management. She is a smoker, though she is trying to wean off tobacco. She would ultimately like definitive management with a hysterectomy. Her insurance is not accepted by [facility], but is accepted by [facility]. We will place a referral with either Dr. Waters or Dr. Elias for evaluation for robotic hysterectomy. 2. Prescription for Phenergan placed for nausea. Patient does have anti-inflammatories on hand. documented in this encounter [facility] 04-04-2024 History of Present illness Narrative Andree Orozco is a pleasant 48 y.o. 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 She had an ablation in 2019 and had no bleeding after that until last month when she had 5 days of bleeding with severe cramping. She is spotting and cramping today. She is sexually active. No painful intercourse. Employment: multimedia developer doing medical scheduling Hot flashes / menopausal symptoms - None Bladder issues - None Bowel issues - None History of abnormal Pap smear: yes - ASCUS Last pap: 04/05/2020- ASCUS, Neg HPV Family history of uterine or ovarian cancer: no Family hx pancreatic or prostate cancer: no Family history of colon cancer: no Family history of breast cancer: no Regular self breast exam: yes Last mammogram: 04/04/24 Dexa Scan: N/A Colonoscopy: October 2023 PHQ9 depression screenin Flu shot this flu season: yes OB History 2 Para 2 Term 2 AB Living SAB IAB Ectopic Multiple Live Births Past Medical History: Diagnosis Date Anxiety Asthma Cervical spondylosis Cervical spondylosis Depression Essential hypertension, benign GERD (gastroesophageal reflux disease) Hiatal hernia Lumbar spondylosis Lumbar spondylosis Migraine Past Surgical History: Procedure Laterality Date BACK SURGERY spinal fusion 06/03/13 CERVICAL BIOPSY W/ LOOP ELECTRODE EXCISION 07/03/06 COLPOSCOPY W/ BIOPSY / CURETTAGE 04/14/06 cervical bx #1lgsil #2 bx lgsil #3 bx hgsil DILATION AND CURETTAGE OF UTERUS TUBAL LIGATION Family History Problem Relation Age of Onset Migraines Mother Diabetes Father Breast cancer Neg Hx Current Outpatient Medications Medication Sig Dispense Refill buPROPion XL (WELLBUTRIN XL) 150 mg 24 hr tablet Take 1 tablet (150 mg total) by mouth in the morning. busPIRone (BUSPAR) 10 mg tablet Take 1 tablet (10 mg total) by mouth every 12 (twelve) hours. cetirizine (ZyrTEC) 10 mg tablet Take 1 tablet (10 mg total) by mouth. DULoxetine (CYMBALTA) 30 mg capsule Take 1 capsule (30 mg total) by mouth in the morning. hydrOXYzine (VISTARIL) 25 mg capsule Take 2 capsules (50 mg total) by mouth in the morning and at bedtime. metoprolol succinate XL (TOPROL XL) 25 mg 24 hr tablet Take 1 tablet (25 mg total) by mouth once daily at bedtime. 90 tablet 3 omeprazole (PriLOSEC OTC) 20 mg EC tablet Take 1 tablet (20 mg total) by mouth daily as needed. ondansetron (ZOFRAN) 4 mg tablet Take 1 tablet (4 mg total) by mouth every 6 (six) hours as needed for nausea or vomiting. topiramate (TOPAMAX) 100 mg tablet Take 1 tablet (100 mg total) by mouth in the morning. VEOZAH 45 mg tablet TAKE 1 TABLET BY MOUTH EVERY DAY FOR 30 DAYS No current facility-administered medications for this visit. ALLERGIES No Known Allergies Review of Systems Constitutional: Negative. Respiratory: Negative. Negative for chest tightness and shortness of breath. Cardiovascular: Negative. Negative for chest pain and palpitations. Gastrointestinal: Positive for diarrhea. Negative for constipation, nausea and vomiting. Endocrine: Negative. Genitourinary: Positive for menstrual problem, pelvic pain and vaginal bleeding. Negative for dyspareunia. Musculoskeletal: Negative. Skin: Negative. Allergic/Immunologic: Negative. Neurological: Negative. Hematological: Negative. Psychiatric/Behavioral: Negative. Physical Exam BP 118/74 Ht 165.1 cm (5' 5 ) Wt 72.3 kg (159 lb 6.4 oz) LMP 12/27/2017 (Exact Date) BMI 26.53 kg/m Physical Exam Vitals and nursing note reviewed. Constitutional: Appearance: Normal appearance. HENT: Head: Normocephalic and atraumatic. Cardiovascular: Rate and Rhythm: Normal rate and regular rhythm. Pulses: Normal pulses. Heart sounds: Normal heart sounds. Pulmonary: Effort: Pulmonary effort is normal. Breath sounds: Normal breath sounds. Chest: Breasts: Breasts are symmetrical. Right: Normal. No mass, skin change or tenderness. Left: Normal. No mass, skin change or tenderness. Abdominal: General: Bowel sounds are normal. Palpations: Abdomen is soft. Genitourinary: General: Normal vulva. Labia: Right: No rash or lesion. Left: No rash or lesion. Vagina: Normal. Cervix: Normal. Uterus: Normal. Not enlarged and not tender. Adnexa: Right adnexa normal and left adnexa normal. Right: No mass, tenderness or fullness. Left: No mass, tenderness or fullness. Musculoskeletal: General: Normal range of motion. Cervical back: Normal range of motion and neck supple. Skin: General: Skin is warm and dry. Neurological: Mental Status: She is alert and oriented to person, place, and time. Psychiatric: Mood and Affect: Mood normal. Speech: Speech normal. Behavior: Behavior normal. Thought Content: Thought content normal. Judgment: Judgment normal. Assessment / Plan Andree was seen today for annual exam. Diagnoses and all orders for this visit: Well woman exam with routine gynecological exam Cervical smear, as part of routine gynecological examination - Pap Smear; Future - High risk HPV w/fanny; Future Standardized adult depression screening tool completed Pelvic pain - Ultrasound pelvic with transvaginal; Future Abnormal uterine bleeding - Ultrasound pelvic with transvaginal; Future Hx of ovarian cyst - Ultrasound pelvic with transvaginal; Future Await pap. Discussed ASCCP screening guidelines. BMI is above average; Discussed eating tips for weight loss and and exercise steps. Discussed SBE. Discussed taking a multivitamin. Discussed Calcium and Vitamin D for prevention of osteoporosis. Discussed need for yearly mammogram after 40 yo. Patient to discuss colon cancer screening recommendations with PCP. Educational material provided. All questions answered. 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 ISAEL Leblanc APRN-CNP 04/04/24 [id number] documented in this encounter [facility] 02-08-2024 History of Present illness Narrative Images from the original note were not included. [facility] [address] [place] [address] Reason for visit: Follow-up syncope, hypertension, palpitations History of present illness: The patient was last seen in the office on September 14, [address] Fitch. I reviewed the note from that encounter. Notably at that time lisinopril was discontinued and metoprolol was initiated. Today she reports she feels good, no problems. No palpitations. Mild exertional dyspnea. No syncope. No chest discomfort. She is active - she walks on a regular basis. No Known Allergies Current Outpatient Medications Medication Sig Dispense Refill buPROPion XL (WELLBUTRIN XL) 150 mg 24 hr tablet Take 1 tablet (150 mg total) by mouth in the morning. busPIRone (BUSPAR) 10 mg tablet Take 1 tablet (10 mg total) by mouth every 12 (twelve) hours. cetirizine (ZyrTEC) 10 mg tablet Take 1 tablet (10 mg total) by mouth. DULoxetine (CYMBALTA) 30 mg capsule Take 1 capsule (30 mg total) by mouth in the morning. hydrOXYzine (VISTARIL) 25 mg capsule Take 2 capsules (50 mg total) by mouth in the morning and at bedtime. metoprolol succinate XL (TOPROL XL) 25 mg 24 hr tablet Take 1 tablet (25 mg total) by mouth once daily at bedtime. 90 tablet 3 omeprazole (PriLOSEC OTC) 20 mg EC tablet Take 1 tablet (20 mg total) by mouth daily as needed. ondansetron (ZOFRAN) 4 mg tablet Take 1 tablet (4 mg total) by mouth every 6 (six) hours as needed for nausea or vomiting. topiramate (TOPAMAX) 100 mg tablet Take 1 tablet (100 mg total) by mouth in the morning. VEOZAH 45 mg tablet TAKE 1 TABLET BY MOUTH EVERY DAY FOR 30 DAYS No current facility-administered medications for this visit. Past Medical History: Diagnosis Date Anxiety Asthma Cervical spondylosis Cervical spondylosis Depression Essential hypertension, benign GERD (gastroesophageal reflux disease) Hiatal hernia Lumbar spondylosis Lumbar spondylosis Migraine Past Surgical History: Procedure Laterality Date BACK SURGERY spinal fusion 06/03/13 CERVICAL BIOPSY W/ LOOP ELECTRODE EXCISION 07/03/06 COLPOSCOPY W/ BIOPSY / CURETTAGE 04/14/06 cervical bx #1lgsil #2 bx lgsil #3 bx hgsil DILATION AND CURETTAGE OF UTERUS TUBAL LIGATION Social History Socioeconomic History Marital status: Spouse name: Not on file Number of children: Not on file Years of education: Not on file Highest education level: Not on file Occupational History Not on file Tobacco Use Smoking status: Former Types: Cigarettes Smokeless tobacco: Never Vaping Use Vaping status: Every Day Substances: Nicotine, Flavoring Devices: Disposable Substance and Sexual Activity Alcohol use: No Drug use: Yes Types: Marijuana Comment: daily Sexual activity: Defer Other Topics Concern Caffeine Use Yes 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 Social Drivers of Health Financial Resource Strain: Not on file Food Insecurity: No Food Insecurity (02/08/2024) Hunger Screening Food Insecurity - Worry: Never True Food Insecurity - Inability: Never True Transportation Needs: Not on file Physical Activity: Not on file Stress: Not on file Social Connections: Not on file Interpersonal Safety: Not on file Housing Instability: Not on file Family History Problem Relation Age of Onset Migraines Mother Diabetes Father Breast cancer Neg Hx Review of Systems Constitutional: Negative for malaise/fatigue. HENT: Negative for nosebleeds. Cardiovascular: Negative for chest pain, claudication, leg swelling, palpitations and syncope. Respiratory: Negative for hemoptysis. Hematologic/Lymphatic: Does not bruise/bleed easily. Musculoskeletal: Negative for myalgias. Gastrointestinal: Negative for hematemesis and hematochezia. Genitourinary: Negative for hematuria. Neurological: Negative for dizziness. Vitals: 02/08/24 1433 BP: 124/82 Pulse: 77 SpO2: 98% Physical Exam Constitutional: Appearance: Normal appearance. She is well-developed. Neck: Vascular: No JVD. Cardiovascular: Heart sounds: S1 normal and S2 normal. No murmur heard. Pulmonary: Breath sounds: Normal breath sounds. No rales. Neurological: General: No focal deficit present. Mental Status: She is alert and oriented to person, place, and time. Psychiatric: Mood and Affect: Mood normal. Behavior: Behavior normal. 01/22/2024 HgB 14.1, cr 1.04, GFR 67 Encounter Diagnoses Name Primary? Essential hypertension, benign Yes Palpitations PLAN: 1. Overall the patient is doing well 2. She will continue her current medications 3. She will follow-up in 1 year. Remigio Hudson Jr, MD documented in this encounter [facility] 02-08-2024 Instructions Sol Angel CMA - 02/08/2024 2:45 PM EDT Are You Ready To Kick The Habit? Free Tobacco Cessation Resources [facility] Services [facility] provide all employees with free tobacco cessation services that include: Counseling to understand nicotine addiction Education about medications that can help you successfully quit Assistance with developing a plan to quit Call to set up an individual appointment or find out when group classes will be held: Abhishek bar [facility]: [phone] [facility]: [phone] [facility]: [phone] [facility]: [phone] Quit Smoking Action Plan and Resources [facility] offers an eight-week, online smoking cessation plan to all [facility] employees, regardless of whether [employer] is your medical insurance provider. Go to [email or web address] and click the Health Risk Assessment and Resources link to get started. In the [employer] menu, click Action Plans instead of Health Risk Assessment to access the Quit Smoking Action Plan. Additional smoking cessation resources are also available to all [facility] employees on the [employer] web page at www.[employer]/quit smoking. [facility] Tobacco Cessation [facility] If Shari is your medical insurance provider, there are more free resources available to you, including: No copays or deductibles on local tobacco cessation counseling services to help you quit Prescription assistance for tobacco cessation medications to help you quit For details about the tobacco cessation program available to [facility] members, go to www.[employer] (Search: Tobacco Cessation Program). [place] Tobacco Quit Line 0-736-MNCQ-NOW ( ) is a toll-free, telephonic service that helps [place] residents quit smoking and using tobacco. It is staffed by experts who tailor a quit plan for you and provide you with advice. [place] Tobacco Quit Line 1-824-LNUZ-NOW ( ) is a toll-free, telephonic service that helps [place] residents quit smoking and using tobacco. It is staffed by experts who tailor a quit plan for you and provide you with advice. Two weeks of nicotine replacement therapy may be provided at no charge, if needed. Additional Resources These national organizations also offer free information and resources to help you quit tobacco: [place] [employer]--www.cancer.org/healthy/ stayawayfromtobacco [place] [employer]--www.heart.org (Search: Quit Smoking) Centers for Disease Control and Prevention--www.cdc.gov/tobacco [place] [employer]--www.lungusa.org documented in this encounter [email or web address] 02-07-2024 Miscellaneous Notes Left message for patient to remind them to bring their most current medication list with them to their appointment. documented in this encounter [facility] 02-07-2024 Telephone encounter Note Left message for patient to remind them to bring their most current medication list with them to their appointment. [facility] 09-14-2023 History of Present illness Narrative Andree Orozco Date of visit: 09/14/2023 Date of : 1975 Age: 48 y.o. Patient Active Problem List Diagnosis Syncope and collapse Tachycardia Palpitations Primary hypertension No Known Allergies Current Outpatient Medications Medication Sig Dispense Refill buPROPion XL (WELLBUTRIN XL) 150 mg 24 hr tablet Take 1 tablet (150 mg total) by mouth in the morning. busPIRone (BUSPAR) 10 mg tablet Take 1 tablet (10 mg total) by mouth every 12 (twelve) hours. cetirizine (ZyrTEC) 10 mg tablet Take 1 tablet (10 mg total) by mouth. hydrOXYzine (VISTARIL) 25 mg capsule Take 2 capsules (50 mg total) by mouth in the morning. VEOZAH 45 mg tablet TAKE 1 TABLET BY MOUTH EVERY DAY FOR 30 DAYS metoprolol succinate XL (TOPROL XL) 25 mg 24 hr tablet Take 1 tablet (25 mg total) by mouth once daily at bedtime. 90 tablet 3 No current facility-administered medications for this visit. Chief Complaint Patient presents with Follow-up 4-10 wks Hypertension Dizziness History of Present Illness I last saw this 48-year-old 07/06/2023 At that visit we reviewed an episode in February when she had syncope while seated on her couch. She felt dizzy and lightheaded and became unconscious. reports that she was out for approximately 30 seconds. She woke up and then lost consciousness for another 30 seconds. Since that time she has had dizziness and lightheadedness with exertion. She has chest tightness with the palpitations that occur at these times. She has not had a further episode of syncope. She has been worse over the last several days as she has had nausea and vomiting leading to some dehydration. 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 She is . She is accompanied by her . CV TESTING HISTORY: ECHO: Echo complete W/O contrast Result Date: 04/20/2023 Left Ventricle: There is mild focal basal increased wall thickness/hypertrophy. Remaining wall segments are normal. Systolic function is normal with an ejection fraction of 60-65%. The quantitative EF by 2D Fitch biplane is 65%. The quantitative EF by 3D imaging is 63%. Normal diastolic function is present. Right Ventricle: Right ventricular size appears normal.Systolic function is normal. Mitral Valve: Mitral valve structure is normal. There is [id number] regurgitation with a posteriorly directed jet. There is no evidence of mitral valve stenosis. Tricuspid Valve: The leaflets are mildly thickened. There is mild regurgitation. The tricuspid valve regurgitation jet is central. There is no evidence of tricuspid valve stenosis. The right ventricular systolic pressure normal. RVSP calculated at 24 mmHg. RVSP is based on RA pressure of 3 mmHg. Pericardium: There is no pericardial effusion. STRESS: Nuc stress Lexiscan Result Date: 04/20/2023 Negative Lexiscan EKG stress test for inducible ischemia. Negative Lexiscan SPECT MPI for inducible ischemia or prior myocardial infarction. Normal left ventricle size, wall thickening and systolic function, calculated LVEF 68%. Based on the perfusion study data, risk of cardiovascular events is low risk. The study is normal. HOLTER: Holter monitor 24-48 hour Result Date: 07/25/2023 48 hour Holter monitor Normal sinus rhythm with appropriate variation in heart rate throughout the monitoring. No significant abnormal tachycardia or bradycardia Patient had no symptoms during the monitoring time period Rare ectopy 09/07/2023 1. This is a wireless event monitor done between 08/07/2023 and 09/05/2023. 2. The baseline and prevailing rhythm was sinus tachycardia. 3. PAC noted. 4. The patient complained of lightheadedness and heart racing while in sinus tachycardia with PAC and complained of dizziness while in sinus tachycardia. CARDIAC CATH: No results found. CAROTID: No results found. CXR: No results found. Lipid Profile: No data recorded No data recorded No data recorded EK09/14/2023 sinus rhythm Normal ECG Past Medical History: Diagnosis Date Anxiety Asthma Cervical spondylosis Cervical spondylosis Depression GERD (gastroesophageal reflux disease) Hypertension Lumbar spondylosis Lumbar spondylosis Migraine Past Surgical History: Procedure Laterality Date BACK SURGERY spinal fusion 06/03/13 CERVICAL BIOPSY W/ LOOP ELECTRODE EXCISION 07/03/06 COLPOSCOPY W/ BIOPSY / CURETTAGE 04/14/06 cervical bx #1lgsil #2 bx lgsil #3 bx hgsil DILATION AND CURETTAGE OF UTERUS TUBAL LIGATION Family History Problem Relation Age of Onset Migraines Mother Diabetes Father Breast cancer Neg Hx Social History Socioeconomic History Marital status: Spouse name: Not on file Number of children: Not on file Years of education: Not on file Highest education level: Not on file Occupational History Not on file Tobacco Use Smoking status: Former Types: Cigarettes Smokeless tobacco: Never Vaping Use Vaping status: Every Day Substances: Nicotine, Flavoring Devices: Disposable Substance and Sexual Activity Alcohol use: No Drug use: No Sexual activity: Defer Other Topics Concern Caffeine Use Yes 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 Social Determinants of Health Financial Resource Strain: Not on file Food Insecurity: No Food Insecurity (09/14/2023) Hunger Screening Food Insecurity - Worry: Never True Food Insecurity - Inability: Never True Transportation Needs: Not on file Physical Activity: Not on file Stress: Not on file Social Connections: Not on file Interpersonal Safety: Not on file Housing Instability: Not on file Review of Systems Review of Systems Constitutional: Negative. HENT: Negative. Eyes: Negative. Respiratory: Negative. Hematologic/Lymphatic: Negative. Skin: Negative. Musculoskeletal: Positive for back pain. Gastrointestinal: Negative. Neurological: Positive for dizziness, light-headedness, loss of balance and numbness. Psychiatric/Behavioral: Positive for depression. The patient is nervous/anxious. Allergic/Immunologic: Positive for environmental allergies. CARDIOVASCULAR: Please review HPI. Physical Examination General appearance: Alert, oriented and cooperative. In no acute distress. Skin: Warm and dry to touch. Respiratory: Clear to auscultation bilaterally, no use of accessory muscles. Cardiovascular: RRR with normal S1 and S2 with no murmurs. Musculoskeletal: No peripheral edema. VITAL SIGNS: BP 124/80 (BP Site: Right Arm, BP Postition: Sitting) Pulse 107 Ht 165.1 cm (5' 5 ) Wt 73.5 kg (162 lb) LMP 12/27/2017 SpO2 96% BMI 26.96 kg/m Orders Placed or Reconciled This Encounter Medications metoprolol succinate XL (TOPROL XL) 25 mg 24 hr tablet Sig: Take 1 tablet (25 mg total) by mouth once daily at bedtime. Dispense: 90 tablet Refill: 3 Medications Discontinued During This Encounter Medication Reason lisinopriL (PRINIVIL,ZESTRIL) 10 mg tablet IMPRESSIONS/PLAN 1. Palpitations - POCT EKG 2. Tachycardia - POCT EKG 3. Syncope and collapse - POCT EKG 4. Primary hypertension 1. Syncope while seated with reported low blood pressure -no recurrence but remains with palpitations and tachycardia with activity 2. Frequent dizziness and lightheadedness, often with activity -may be worsened with BuSpar and Veozah 3. Primary hypertension 4. Low risk stress test 2022 5. Normal left ventricular systolic function on echocardiogram without significant valvulopathy 03/2023 6. She denies the possibility of Instructions Stop lisinopril Start metoprolol succinate TODAYS ORDERS Orders Placed This Encounter Procedures POCT EKG FOLLOW UP Return for 3-4 months. PCP: ISAEL Rodney Referring Physician: ISAEL Rodney [address] [place] [address] documented in this encounter [facility] 09-14-2023 Instructions Laurie Fitch MD - 09/14/2023 1:00 PM EDT Stop lisinopril Start metoprolol succinate documented in this encounter [facility] 09-13-2023 Miscellaneous Notes Called patient to remind them to bring their most current copy of their medication list with them to their appt. Patient verbalizes understanding. documented in this encounter [facility] 09-13-2023 Telephone encounter Note Called patient to remind them to bring their most current copy of their medication list with them to their appt. Patient verbalizes understanding. [facility] 08-03-2023 Miscellaneous Notes Images from the original note were not included. Gerry Barger RN 08/03/2023 9:41 AM EDT Back to Top Holter results and LLDs recommendations called and reviewed with patient. Pt agreeable to 30 day EM and will fuas. Laurie Fitch MD 08/02/2023 6:22 PM EDT Thirty day event recorder please Gerry Barger RN 07/25/2023 3:30 PM EDT Results sent to pt via [employer]. Gerry Barger RN 07/25/2023 3:28 PM EDT SERGIO PATEL for your review upon return - 1. Syncope while seated with reported low blood pressure -improved since decreasing lisinopril 2. Frequent dizziness and lightheadedness, often with activity -may be worsened with BuSpar and Veozah 3. Primary hypertension, on low-dose lisinopril 4. Low risk stress test 2022 5. Normal left ventricular systolic function on echocardiogram without significant valvulopathy 03/2023 6. She denies the possibility of Patient reports that if she stops lisinopril completely her blood pressure is too high Patient advised not to drive for 6 months after a syncopal episode If Holter monitor is benign may consider event recorder. This was discussed with the patien EM order placed and message sent to [facility] front desk admin to [employer]. [facility] Telephone encounter Note Images from the original note were not included. Gerry Barger RN 08/03/2023 9:41 AM EDT Back to Top Holter results and LLDs recommendations called and reviewed with patient. Pt agreeable to 30 day EM and will fuas. Laurie Fitch MD 08/02/2023 6:22 PM EDT Thirty day event recorder please Gerry Barger RN 07/25/2023 3:30 PM EDT Results sent to pt via [employer]. Gerry Barger RN 07/25/2023 3:28 PM EDT SERGIO PATEL for your review upon return - 1. Syncope while seated with reported low blood pressure -improved since decreasing lisinopril 2. Frequent dizziness and lightheadedness, often with activity -may be worsened with BuSpar and Veozah 3. Primary hypertension, on low-dose lisinopril 4. Low risk stress test 2022 5. Normal left ventricular systolic function on echocardiogram without significant valvulopathy 03/2023 6. She denies the possibility of Patient reports that if she stops lisinopril completely her blood pressure is too high Patient advised not to drive for 6 months after a syncopal episode If Holter monitor is benign may consider event recorder. This was discussed with the patien [facility] 08-03-2023 Telephone encounter Note EM order placed and message sent to [facility] front desk admin to [facility]. [facility] 07-06-2023 History of Present illness Narrative Andree Mendoza Ernesto Date of visit: 07/06/2023 Date of : 1975 Age: 48 y.o. Patient Active Problem List Diagnosis Syncope and collapse Tachycardia Palpitations Hypertension No Known Allergies Current Outpatient Medications Medication Sig Dispense Refill buPROPion XL (WELLBUTRIN XL) 150 mg 24 hr tablet Take 1 tablet (150 mg total) by mouth in the morning. busPIRone (BUSPAR) 10 mg tablet Take 1 tablet (10 mg total) by mouth every 12 (twelve) hours. cetirizine (ZyrTEC) 10 mg tablet Take 1 tablet (10 mg total) by mouth. hydrOXYzine (VISTARIL) 25 mg capsule Take 2 capsules (50 mg total) by mouth in the morning. lisinopriL (PRINIVIL,ZESTRIL) 10 mg tablet Take 0.5 tablets (5 mg total) by mouth in the morning. VEOZAH 45 mg tablet TAKE 1 TABLET BY MOUTH EVERY DAY FOR 30 DAYS No current facility-administered medications for this visit. Chief Complaint Patient presents with New Patient KINDER TEACHER Atypical chest pain STRESS,ECHO,CXR,LABS,EKG MAGALYS BP ISSUES SCHED W/PT History of Present Illness I would the opportunity to meet this 48-year-old She reports that in February she had an episode of syncope while seated on her couch. She felt dizzy and lightheaded and became unconscious. reports that she was out for approximately 30 seconds. She woke up and then lost consciousness for another 30 seconds. Since that time she has had dizziness and lightheadedness with exertion. She has chest tightness with the palpitations that occur at these times. She has not had a further episode of syncope. 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 She is . She is accompanied by her . CV TESTING HISTORY: ECHO: Echo complete W/O contrast Result Date: 04/20/2023 Left Ventricle: There is mild focal basal increased wall thickness/hypertrophy. Remaining wall segments are normal. Systolic function is normal with an ejection fraction of 60-65%. The quantitative EF by 2D Fitch biplane is 65%. The quantitative EF by 3D imaging is 63%. Normal diastolic function is present. Right Ventricle: Right ventricular size appears normal.Systolic function is normal. Mitral Valve: Mitral valve structure is normal. There is gyrty-re-cfby regurgitation with a posteriorly directed jet. There is no evidence of mitral valve stenosis. Tricuspid Valve: The leaflets are mildly thickened. There is mild regurgitation. The tricuspid valve regurgitation jet is central. There is no evidence of tricuspid valve stenosis. The right ventricular systolic pressure normal. RVSP calculated at 24 mmHg. RVSP is based on RA pressure of 3 mmHg. Pericardium: There is no pericardial effusion. STRESS: Nuc stress Lexiscan Result Date: 04/20/2023 Negative Lexiscan EKG stress test for inducible ischemia. Negative Lexiscan SPECT MPI for inducible ischemia or prior myocardial infarction. Normal left ventricle size, wall thickening and systolic function, calculated LVEF 68%. Based on the perfusion study data, risk of cardiovascular events is low risk. The study is normal. HOLTER: No results found. CARDIAC CATH: No results found. CAROTID: No results found. CXR: No results found. Lipid Profile: No data recorded No data recorded No data recorded EK06/01/2023 Sinus rhythm Normal ECG Past Medical History: Diagnosis Date Anxiety Asthma Cervical spondylosis Cervical spondylosis Depression GERD (gastroesophageal reflux disease) Hypertension Lumbar spondylosis Lumbar spondylosis Migraine Past Surgical History: Procedure Laterality Date BACK SURGERY spinal fusion 06/03/13 CERVICAL BIOPSY W/ LOOP ELECTRODE EXCISION 07/03/06 COLPOSCOPY W/ BIOPSY / CURETTAGE 04/14/06 cervical bx #1lgsil #2 bx lgsil #3 bx hgsil DILATION AND CURETTAGE OF UTERUS TUBAL LIGATION Family History Problem Relation Age of Onset Migraines Mother Diabetes Father Breast cancer Neg Hx Social History Socioeconomic History Marital status: Spouse name: Not on file Number of children: Not on file Years of education: Not on file Highest education level: Not on file Occupational History Not on file Tobacco Use Smoking status: Former Types: Cigarettes Smokeless tobacco: Never Vaping Use Vaping Use: Every day Substances: Nicotine, Flavoring Devices: Disposable Substance and Sexual Activity Alcohol use: No Drug use: No Sexual activity: Defer Other Topics Concern Caffeine Use Yes 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 HENT: Negative. Eyes: Negative. Cardiovascular: Positive for chest pain. Vascular: Negative. Respiratory: Negative. Endocrine: Negative. Hematologic/Lymphatic: Negative. Skin: Positive for rash. Musculoskeletal: Positive for back pain, joint swelling and muscle weakness. Gastrointestinal: Negative. Genitourinary: Negative. Neurological: Positive for dizziness and light-headedness. Psychiatric/Behavioral: Positive for depression. The patient is nervous/anxious. Allergic/Immunologic: Positive for environmental allergies. CARDIOVASCULAR: Please review HPI. Physical Examination General appearance: Alert, oriented and cooperative. In no acute distress. Skin: Warm and dry to touch. Neck: No JVD, No carotid bruit. Neck supple, trachea midline. Respiratory: Clear to auscultation bilaterally, no use of accessory muscles. Cardiovascular: RRR with normal S1 and S2 with no murmurs. Musculoskeletal: No peripheral edema. VITAL SIGNS: BP 122/88 (BP Site: Left Arm, BP Postition: Sitting) Pulse 105 Ht 165.1 cm (5' 5 ) Wt 75 kg (165 lb 6.4 oz) LMP 12/27/2017 SpO2 99% BMI 27.52 kg/m Orders Placed or Reconciled This Encounter Medications hydrOXYzine (VISTARIL) 25 mg capsule Sig: Take 2 capsules (50 mg total) by mouth in the morning. buPROPion XL (WELLBUTRIN XL) 150 mg 24 hr tablet Sig: Take 1 tablet (150 mg total) by mouth in the morning. Medications Discontinued During This Encounter Medication Reason atomoxetine (STRATTERA) 40 mg capsule benzonatate (TESSALON PERLES) 100 mg capsule ibuprofen (MOTRIN) 800 mg tablet ondansetron ODT (ZOFRAN ODT) 4 mg disintegrating tablet IMPRESSIONS/PLAN 1. Atypical chest pain - Ambulatory referral to Cardiology ([facility]) 2. Primary hypertension 3. Palpitations - Holter Monitor 24-48 Hour (In Office); Future 4. Tachycardia - Holter Monitor 24-48 Hour (In Office); Future 5. Syncope and collapse 1. Syncope while seated with reported low blood pressure -improved since decreasing lisinopril 2. Frequent dizziness and lightheadedness, often with activity -may be worsened with BuSpar and Veozah 3. Primary hypertension, on low-dose lisinopril 4. Low risk stress test 2022 5. Normal left ventricular systolic function on echocardiogram without significant valvulopathy 03/2023 6. She denies the possibility of Patient reports that if she stops lisinopril completely her blood pressure is too high Patient advised not to drive for 6 months after a syncopal episode If Holter monitor is benign may consider event recorder. This was discussed with the patient Instructions Nonprescription compression stockings Adequate hydration/nutrition/sleep/exerci se Keep lisinopril at 5 mg daily dose Holter monitor Record blood pressure and heart rate 3 times per week. Call if systolic (top) number is consistently greater than 140 or less than 100 or diastolic (bottom) number is consistently greater than 90. Call if heart rate is consistently greater than 110 or less than 50. TODAYS ORDERS Orders Placed This Encounter Procedures Holter Monitor 24-48 Hour (In Office) FOLLOW UP Return for 4-10 weeks RAD[place]. PCP: ISAEL Rodney Referring Physician: ISAEL Rodney [address] [place] [address] documented in this encounter [facility] 07-06-2023 Instructions Laurie Fitch MD - 07/06/2023 10:30 AM EDT Nonprescription compression stockings Adequate hydration/nutrition/sleep/exerci se Keep lisinopril at 5 mg daily dose Holter monitor Record blood pressure and heart rate 3 times per week. Call if systolic (top) number is consistently greater than 140 or less than 100 or diastolic (bottom) number is consistently greater than 90. Call if heart rate is consistently greater than 110 or less than 50. documented in this encounter [facility] 07-05-2023 Miscellaneous Notes Called patient to remind them to bring their most current copy of their medication list with them to their appt. Patient verbalizes understanding. documented in this encounter [facility] 07-05-2023 Telephone encounter Note Called patient to remind them to bring their most current copy of their medication list with them to their appt. Patient verbalizes understanding. [facility] 05-25-2023 Miscellaneous Notes Attempted to phone patient x3 to schedule for a KINDER TE[employer]ER Referral and lmon vm to contact office, no response as of yet. Phoned referring physician office [place] [address] [phone], advised of above and that we will be mailing the patient a letter and referring back to them, verbalized understanding. documented in this encounter [facility] 05-25-2023 Telephone encounter Note Attempted to phone patient x3 to schedule for a KINDER TEACHER Referral and lmon vm to contact office, no response as of yet. Phoned referring physician office [place] [phone], advised of above and that we will be mailing the patient a letter and referring back to them, verbalized understanding. [facility] 05-24-2023 Miscellaneous Notes LMOM for the patient to call and schedule their new pt appointment with [facility]. documented in this encounter [facility] 05-24-2023 Telephone encounter Note LMOM for the patient to call and schedule their new pt appointment with [facility]. [facility] 05-18-2023 Miscellaneous Notes LMOM for the patient to call and schedule their new pt appointment with [facility]. documented in this encounter [facility] 05-18-2023 Telephone encounter Note LMOM for the patient to call and schedule their new pt appointment with [facility]. [facility] 05-16-2023 Miscellaneous Notes LMOM for the patient to call and schedule their KINDER TEACHER appointment with [facility]. documented in this encounter [facility] 05-16-2023 Telephone encounter Note LMOM for the patient to call and schedule their KINDER TE[employer]ER appointment with [facility]. [facility] Evaluation note Diagnosis Abnormal uterine bleeding due to intramural leiomyoma- Primary Uterus, adenomyosis Endometriosis of uterus Pelvic pain Nausea Nausea alone Status post endometrial ablation Other postprocedural status Menorrhagia with irregular cycle Dysmenorrhea [facility] Diagnosis Menorrhagia with irregular cycle- Primary Status post endometrial ablation Other postprocedural status Pelvic pain Dysmenorrhea Menorrhagia with irregular cycle Dysmenorrhea Status post endometrial ablation Other postprocedural status Menorrhagia with irregular cycle Dysmenorrhea Status post endometrial ablation Other postprocedural status [facility] Diagnosis Syncope and collapse- Primary Palpitations Tachycardia Unspecified tachycardia Primary hypertension Unspecified essential hypertension [facility] Primary hypertension- Primary Unspecified essential hypertension Atypical chest pain Other chest pain Palpitations Tachycardia Unspecified tachycardia Syncope and collapse [facility] Diagnosis Palpitations- Primary Tachycardia Unspecified tachycardia Atypical chest pain Other chest pain Primary hypertension Unspecified essential hypertension Syncope and collapse [facility] Diagnosis Essential hypertension, benign- Primary Palpitations documented in this [facility]* Diagnosis Well woman exam with routine gynecological exam- Primary Routine gynecological examination Cervical smear, as part of routine gynecological examination Screening for malignant neoplasm of the cervix Standardized adult depression screening tool completed Pelvic pain Abnormal uterine bleeding Unspecified disorder of menstruation and other abnormal bleeding from female genital tract Hx of ovarian cyst documented in this encounter [facility]* Diagnosis Menorrhagia with irregular cycle Dysmenorrhea Status post endometrial ablation Other postprocedural status Uterine leiomyoma, unspecified location- Primary Menorrhagia with irregular cycle Dysmenorrhea Status post endometrial ablation Other postprocedural status documented in this encounter [facility]* Diagnosis Postoperative examination- Primary Follow-up examination, following unspecified surgery documented in this encounter [facility]* Diagnosis Migraine without aura and without status migrainosus, not intractable (CMS/HCC)- Primary Abnormal brain MRI Nonspecific (abnormal) findings on radiological and other examination of skull and head Dizziness Dizziness and giddiness Nausea and vomiting, unspecified vomiting type documented [facility] encounter [facility] Attachments The following attachments cannot be sent through Care Everywhere. * Uterine fibroids (Belizean) * Adenomyosis ([place]izean) [facility] SystemInstructionsNot on file documented in [facility] SystemInstructionsNot on file documented [facility] SystemInstructionsNot on file documented in [facility] SystemInstructionsNot on file documented in [facility] SystemInstructionsNot on file documented in [facility]* Attachments The following attachments cannot be sent through Care Everywhere. * Calcium and vitamin D for bone health (Belizean) * Perimenopause ([place]izean) [facility]ructionsNot on file documented in this [facility]Pro[facility] SystemInstructionsNot on file documented in [facility] Summary Purpose Family History No Family History Records FoundNo Family History Records FoundNo Family History Records FoundNo Family History Records FoundNo Family History Records FoundNo Family History Records FoundNo Family History Records FoundNo Family History Records Found Advance Directives No Advanced Directives Records Found Date Activated Date Inactivated Comments 06/20/2024 6:02 AM 06/20/2024 6:03 PM Reason for Referral Specialty Diagnoses / Procedures Referred By Contac t Referred To Contact Diagnoses Palpitations Tachycardia Atypical chest pain Primary hypertension Syncope and collapse Procedures Event Monitor (In Office) Laurie Fitch MD [address] [place] [address] Referral ID Status Reason Start Date Expiration Date V isits Requested Visits Authorized [id number] Pending Review 08/03/2023 08/02/2024 1 1 Additional Source Comments INFORMATION SOURCE (unrecogn ized section and content) DATE CREATED AUTHOR 10/21/2020 [facility] DATE CREATED AUTHOR AUTHOR'S ORGANIZ ATION 08/26/2022 [facility] DATE CREATED AUTHOR AUTHOR'S ORGANIZ ATION 09/03/2022 [facility] DATE CREATED AUTHOR AUTHOR'S ORGANIZ ATION 11/26/2023 [facility] DATE CREATED AUTHOR AUTHOR'S ORGANIZ ATION 05/24/2024 [facility] DATE CREATED AUTHOR AUTHOR'S ORGANIZ ATION 07/04/2024 [facility] EPIC DATE CREATED AUTHOR AUTHOR'S ORGANIZ ATION 08/02/2024 [facility] DATE CREATED AUTHOR AUTHOR'S ORGANIZ ATION 10/05/2024 [facility] Care Teams (unrecognized sec tion and content) Right Of Way Appraiser Relationship Specialty Start Date End Date Zhang Woods APRN-BREAD SLICER MACHINE [address] [place] [address] PCP - General Family Medicine 01/22/[address]raiser Relationship Specialty Start Date End Date Jimenez Pa APRN-INTERIOR PLANT CARETAKER [address] [place] [address] PCP - General Primary Care 06/27/[address] Relationship Specialty Start Date End Date Shammo, Jimenez, [employer]-INTERIOR PLANT CARETAKER [address] [place] [address] PCP - General Primary Care 06/01/[address]raiser Relationship Specialty Start Date End Date Shammo, Jimenez, [employer]-INTERIOR PLANT CARETAKER [address] [place] [address] PCP - General Primary Care 06/01/[address] Appraiser Relationship Specialty Start Date End Date Shammo, Jimenez, [employer]-INTERIOR PLANT CARETAKER [address] [place] [address] PCP - General Primary Care 06/01/[address] Appraiser Relationship Specialty Start Date End Date Shammo, Jimenez, [employer]-INTERIOR PLANT CARETAKER [address] [place] [address] PCP - General Primary Care 06/01/[address]raiser Relationship Specialty Start Date End Date Shammo, Jimenez, [employer]-INTERIOR PLANT CARETAKER [address] [place] [address] PCP - General Primary Care 06/01/[address] Relationship Specialty Start Date End Date Zhang Woods [employer]-BREAD SLICER MACHINE [address] [place] [address] PCP - General Family Medicine 01/22/[address] Appraiser Relationship Specialty Start Date End Date Zhang Woods [employer]-BREAD SLICER MACHINE [address] [place] [address] PCP - General Family Medicine 01/22/[address] Appraiser Relationship Specialty Start Date End Date Zhang Woods, [employer]-BREAD SLICER MACHINE [address] [place] [address] PCP - General Family Medicine 05/28/[address] Appraiser Relationship Specialty Start Date End Date Zhang Woods [employer]-BREAD SLICER MACHINE [address] [place] [address] PCP - General Family Medicine 05/28/[address] Appraiser Relationship Specialty Start Date End Date Zhang Woods [employer]-BREAD SLICER MACHINE [address] [facility] [place] [address] PCP - General Family Medicine 05/28/[address] Appraiser Relationship Specialty Start Date End Date Unallocated, Philipps MD Junito [address] [place] [address] PCP - General Family Medicine 05/06/24 Zhang Woods, KINDER TEACHER [address] [place] [address] [id number] Referring Physician Family Medicine 05/06/24 Yessenia Basurto MD [address] [facility] [place] [id number] Referring Physician Internal Medicine 05/06/24 Amairani Richardson DO [address] [place] [address] Referring Physician Neurology 07/01/[address] Relationship Specialty Start Date End Date Unallocated, MD [address] [place] [address] PCP - General Family Medicine 05/06/24 Zhang Woods NP [address] [place] [address] Referring Physician Family Medicine 05/06/24 Yessenia Basurto MD [address] [place] [address] Referring Physician Internal Medicine 05/06/24 Amairani Richardson DO [address] [place] [address] Referring Physician Neurology 07/01/24 Reason for Visit (unrecogniz ed section and content) Reason Comments Menorrhagia Dysmenorrhea Reason Comments Follow-up 4-10 wks Hypertension Dizziness Reason Comments New Patient KINDER TEACHER Atypical chest pa in STRESS,ECHO,CXR,LABS,EKG MAGALYS BP ISSUES SCHED W/PT Specialty Diagnoses / Procedures Referred By Contac t Referred To Contact Cardiology Diagnoses Atypical chest pain Jimenez Pa, [employer]-INTERIOR PLANT CARETAKER [address] [place] [address] [facility] Card[facility] [address] [address] Referral ID Status Reason Start Date Expiration Date Visits Requested Visits Authorized [id number] Pending Review Specialty Services Required 05/16/2023 05/15/2024 1 1 Reason Onset Date Comments Event Monitor 08/03/2023 Reason Comments Follow-up 3-4 MONTHS MED LUJAN ES Syncope Hypertension Reason Comments Annual Exam Reason Onset Date Comments Sore Throat 06/21/2024 Vomiting 06/21/2024 trouble swallowing 06/21/2024 Reason Comments Post-op Reason Comments Migraine Specialty Diagnoses / Procedures Referred By Contac t Referred To Contact Neurology Diagnoses Migraine, unspecified, not intractable, without status migrainosus (CMS/HCC) Procedures NV OFFICE/OUTPATIENT NEW LOW MDM 30 MINUTES Yessenia Basurto MD [address] [place] [address] fax: Juan Pablo Browne MD [address] [place] [address] Phone: tel: fax: Referral ID Status Reason Start Date Expiration Date V isits Requested Visits Authorized [id number] Closed Consult and Treat 05/06/2024 11/02/2024 1 1 Reason Comments Med Refill FOR RECORDS PERTAINING TO PATIENTS WHO ARE OR HAVE BEEN ENROLLED IN A CHEMICAL DEPENDENCY/SUBSTANCEABUSE PROGRAM, SOME INFORMATION MAY BE OMITTED. This clinical summary was aggregated from multiple sources. Caution should be exercised in using it in the provision of clinical care. This summary normalizes information from multiple sources, and as a consequence, information in this document may materially change the coding, format and clinical context of patient data. In addition, data may be omitted in some cases. CLINICAL DECISIONS SHOULD BE BASED ON THE PRIMARY CLINICAL RECORDS. [facility] [employer] [facility]. provides no warranty or guarantee of the accuracy or completeness of information in this document.
[2024-11-13 09:58] LABS: Hematocrit 45.1 % (36.0-48.0); Hemoglobin 16.1 g/dL (12.0-16.0); Immature Granulocytes Abs Auto 0.02 10^3/uL (0.00-0.03); Immature Granulocytes Pct Auto 0.2 % (0.0-0.5); Lymphocytes Absolute Auto 2.1 10^3/uL (1.2-3.8); Mean Corpuscular HGB Conc 35.7 g/dL (29.9-35.2); Mean Corpuscular Hemoglobin 30.8 pg (26.7-34.0); Mean Corpuscular Volume 86.2 fL (81.0-99.0); Platelet Count 386 10^3/uL (150-450); Red Blood Count 5.23 10^6/uL (4.20-5.40); White Blood Count 8.1 10^3/uL (4.0-11.0)
[2024-11-13] MEDS: 0.9 % SODIUM CHLORIDE 1,000 ML 1000 ML IV (09:59)
[2024-11-13] MEDS: DIPHENHYDRAMINE HCL 50 MG/ML VIAL 25 MG IV (10:00)
[2024-11-13] MEDS: PROCHLORPERAZINE 10 MG/2 ML VIAL 5 MG IV (10:00)
[2024-11-13] MEDS: PANTOPRAZOLE SODIUM 40 MG VIAL IV (10:00)
[2024-11-13 10:07] LABS: Alanine Aminotransferase 15 U/L (14-59); Albumin Globulin Ratio 1.3; Albumin Level 4.9 g/dL (3.4-5.0); Alkaline Phosphatase 101 U/L (46-116); Anion Gap 21.9; Aspartate Amino Transferase 9 U/L (15-37); Blood Urea Nitrogen 17.0 mg/dL (7.0-18.0); Calcium 10.2 mg/dL (8.5-10.1); Carbon Dioxide 20.4 mmol/L (21.0-32.0); Chloride 101 mmol/L (98-107); Estimated GFR (African America 49 (>=60 mL/min/1.73m^2); Estimated GFR (Non-African Ame 41 (>=60 mL/min/1.73m^2); Globulin 3.8 g/dL; Glucose 96 mg/dL (74-106); Lipase 32.0 U/L (16.0-77.0); Potassium 3.3 mmol/L (3.5-5.1); Sodium 140 mmol/L (136-145); Total Protein 8.7 g/dL (6.4-8.2)
[2024-11-13 12:10] LABS: Glucose Urine UA NEGATIVE (NEGATIVE)
[2024-11-13 12:27] LABS: Cast Seen? SEEN #/LPF (NONE SEEN); Crystals Seen? None Seen #/HPF (None Seen); Urine Culture Indicated NO
[2024-11-13 12:28] LABS: Cannabinoid Screen Urine POSITIVE (NEGATIVE); Methamphetamines Screen Urine NEGATIVE (NEGATIVE); Tricyclic Antidepressant Urine NEGATIVE (NEGATIVE)
== END 2024-11-13 13:05 | disposition home or self-care (01) ==
PROVIDERS: Emergency Provider Emergency Medicine; PCP Nurse Practitioner
DX: R11.2 Nausea with vomiting, unspecified (principal); R10.9 Unspecified abdominal pain; Z90.710 Acquired absence of both cervix and uterus; R51.9 Headache, unspecified
CPT/HCPCS: 36415; 80053; 80307; 81001; 83690; 85025; 96361; 96374; 96375; 99284; J0780; J1200